=== PATIENT | male | born 1955 | race African-American/Black ===

== ENCOUNTER 2016-09-15 18:25 | Inpatient (IN) | payer MEDICARE, OTHER ==
[~2016-09-15] VITALS: Ht 167.6 cm; Wt 143.2 kg
[~2016-09-15 18:25] MED LIST: 1-ME1LIQ PO; ACET325S8 PO; ALUM5LIQ PO; AMIT50 PO; CEFU500 PO; CLOP75 PO; COZA100T PO; DOXA4 PO; DUONI NEB; FENO145 PO; FERR324T4 PO; FURO20 PO; GABA400 PO; GLIP10 PO; KCL20 PO; LEVO.075 PO; LEVO100T4 PO; METF-324 PO; METO50 PO; MEVA40TA PO; OMEP20TA39 PO; OXYC1SOL5 PO; PIOG30 PO; TEMA30CA PO
[2016-09-15 18:28] VITALS: BP 169/101; PULSE 73; RESP 24; TEMP 97.7; O2SAT 95
[2016-09-16] VITALS (12 sets, daily range): BP systolic 114–155; BP diastolic 58–84; PULSE 61–67; RESP 16–20; TEMP 95.6–97.6; O2SAT 94–99
[2016-09-16] MEDS ORDERED: METF500T PO (00:59)
[2016-09-16] MEDS ORDERED: LEVO50TA4 PO (00:59)
[2016-09-16] MEDS ORDERED: OXYC1TAB36 PO (00:59)
[2016-09-16] MEDS ORDERED: FURO40TA PO (00:59)
[2016-09-16] MEDS ORDERED: GABA400C5 PO (00:59)
[2016-09-16] MEDS ORDERED: METO50TA PO (00:59)
[2016-09-16] MEDS ORDERED: GLIP10TA6 PO (01:00)
[2016-09-16] MEDS ORDERED: LOSA100T PO (01:00)
[2016-09-16] MEDS ORDERED: OMEP20TA PO (01:00)
[2016-09-16] MEDS ORDERED: LISI-515 PO (01:00)
[2016-09-16] MEDS ORDERED: NAPR500T PO (01:00)
[2016-09-16] MEDS ORDERED: PANT40TA3 PO (01:00)
[2016-09-16] MEDS ORDERED: FERR325T PO (01:00)
[2016-09-16] MEDS ORDERED: AMIT50TA3 PO (01:00)
[2016-09-16] MEDS ORDERED: PIOG30TA4 PO (01:00)
[2016-09-16] MEDS ORDERED: LOVA40TA PO (01:00)
[2016-09-16] MEDS ORDERED: DOXA1TAB34 PO (01:00)
[2016-09-16] MEDS ORDERED: TEMA30CA PO (01:00)
[2016-09-16] MEDS ORDERED: AMLO10TA2 PO (01:00)
[2016-09-16] MEDS ORDERED: SODIUM CHLORIDE 0.9% FLUSH 5 ML FLUSH IVF PRN (01:15)
[2016-09-16 01:25] LABS: AUTOMATED NEUTROPHIL # 3.1 TH/MM3 (1.8-7.7); BASOPHIL % 0.7 % (0.0-2.0); EOSINOPHIL # 0.3 TH/MM3 (0-0.4); EOSINOPHIL % 4.4 % (0.0-4.0); HEMATOCRIT 39.8 % (39.0-51.0); HEMO FLAGS DIFF FINAL; LYMPH % 38.7 % (9.0-44.0); LYMPHOCYTE # 2.5 TH/MM3 (1.0-4.8); MEAN CELL VOLUME 90.3 FL (80.0-100.0); MEAN CORPUSCULAR HEMOGLOBIN 30.5 PG (27.0-34.0); MEAN CORPUSCULAR HGB CONC 33.8 % (32.0-36.0); MONO % 7.6 % (0.0-8.0); NEUT % 48.6 % (16.0-70.0); PLATELET COUNT 259 TH/MM3 (150-450); RED BLOOD COUNT 4.41 MIL/MM3 (4.50-5.90); RED CELL DISTRIBUTION WIDTH 14.5 % (11.6-17.2); WHITE BLOOD COUNT 6.3 TH/MM3 (4.0-11.0)
[2016-09-16 01:44] LABS: BICARBONATE 23.5 MEQ/L (21.0-32.0); POTASSIUM 4.9 MEQ/L (3.5-5.1)
--- NOTE | 2016-09-16 01:44 | RADRPT ---
EXAM DATE/TIME: 09/16/2016 01:26 [facility] COMPARISON: CT BRAIN W/O CONTRAST, March 11, 2016, 18:57. INDICATIONS : Right hand numbness since yesterday. RADIATION DOSE: 42.31 CTDIvol (mGy) MEDICAL HISTORY : Hypertension. Methicillin-resistant Staphylococcus aureus. thyroid disease. SURGICAL HISTORY : None. ENCOUNTER: Initial ACUITY: 2 days PAIN SCALE: 8/10 LOCATION: cranial TECHNIQUE: Multiple contiguous axial images were obtained of the head. Using automated exposure control and adj ustment of the mA and/or kV according to patient size, radiation dose was kept as low as reasonably a chievable to obtain optimal diagnostic quality images. FINDINGS: CEREBRUM: There is mild cerebral atrophy. Ventricles are stable in size. There is mild periventricular white ma tter low attenuation. No evidence of midline shift, mass lesion, hemorrhage or acute infarction. No extra-axial fluid collections are seen. POSTERIOR FOSSA: The cerebellum and brainstem demonstrate no acute finding. The 4th ventricle is midline. The cerebe llopontine angle is unremarkable. EXTRACRANIAL: Visualized sinuses are clear. SKULL: The calvaria is intact. No evidence of skull fracture. CONCLUSION: Stable noncontrast head CT with chronic changes, as above. No acute intracranial abnormality is ident ified. Efrain Potts MD on September 16, 2016 at 1:41 Board Certified Radiologist. This report was verified electronically.
--- NOTE | 2016-09-16 02:34 | PD ---
HPI Chief Complaint: Numbness/Tingling Time Seen by Provider: 00:41 Travel History International Travel<30 days: No Contact w/Intl Traveler<30days: No Traveled to known affect area: No History of Present Illness HPI 61-year-old male with a history of CHF, hyperlipidemia, hypertension, diabetes, right BKA, left great toe amputation and alcoholism arrives after he experienced about 12 hours of RUE weakness and numbness. He has a history of CVA from 8 months prior. Similar symptoms accompanied CVA from before. Symptoms first started more than 18 hours prior to ER arrival. He saw his primary care provider Dr. Mauricio Piedra as an outpatient and was advised to come to the ER. IN the ER he has no weakness or numbness. He has no other acute complaint. PFSH Past Medical History Arthritis: Yes Asthma: No Blood Disorders: No Anxiety: No Depression: No Heart Rhythm Problems: No Cancer: No Cardiovascular Problems: No High Cholesterol: Yes Chemotherapy: No Chest Pain: Yes Congestive Heart Failure: Yes COPD: No Cerebrovascular Accident: No Diabetes: Yes Patient Takes Glucophage: Yes (09/15/16) Diminished Hearing: No Endocrine: Yes Gastrointestinal Disorders: Yes (STOMACHE ULCER, GERD) GERD: Yes Glaucoma: No Genitourinary: No Headaches: No Hepatitis: No Hiatal Hernia: No Hypertension: Yes Kidney Stones: No Musculoskeletal: No Neurologic: No Psychiatric: No Reproductive: No Respiratory: No Migraines: No Myocardial Infarction: No Radiation Therapy: No Renal Failure: No Seizures: No Sickle Cell Disease: No Sleep Apnea: No Thyroid Disease: Yes Ulcer: Yes Past Surgical History Abdominal Surgery: Yes (CHOLECYSTECTOMY) AICD: No Appendectomy: No Arteriovenous Shunt: No Cardiac Surgery: No Cholecystectomy: Yes Ear Surgery: No Endocrine Surgery: No Eye Surgery: Yes (RIGHT EYE) Genitourinary Surgery: No Insulin Pump: No Joint Replacement: No Oral Surgery: No Pacemaker: No Thoracic Surgery: No Other Surgery: Yes (bilat foot diabetic ulcer debridement) Social History Alcohol Use: Yes (12 BEERS DAILY) Tobacco Use: No Substance Use: No Allergies-Medications (Allergen,Severity, Reaction): Coded Allergies: *MDRO Multi-Drug Resistant Organism (Verified Allergy, Unknown, 05/12/14) MRSA Acinetobacter 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 Aspirin (Verified Adverse Reaction, Severe, 05/12/14) not allergic; takes Coumadin/ states aspirin causes fever Reported Meds & Prescriptions Reported Meds & Active Scripts Active Reported Losartan (Losartan Potassium) 100 Mg Tab 100 Mg PO DAILY Omeprazole 20 Mg Tab 20 Mg PO DAILY Doxazosin (Doxazosin Mesylate) 4 Mg Tab 4 Mg PO DAILY Naproxen 500 Mg Tab 500 Mg PO BID Pioglitazone (Pioglitazone HCl) 30 Mg Tab 30 Mg PO DAILY Lovastatin 40 Mg Tab 40 Mg PO DAILY Amitriptyline (Amitriptyline HCl) 50 Mg Tab 50 Mg PO HS Amlodipine (Amlodipine Besylate) 10 Mg Tab 10 Mg PO DAILY Pantoprazole (Pantoprazole Sodium) 40 Mg Tab 40 Mg PO DAILY Lisinopril 20 Mg Tab 20 Mg PO DAILY Temazepam 30 Mg Cap 30 Mg PO HS PRN Glipizide 10 Mg Tab 10 Mg PO DAILY Take 30 minutes before a meal Ferrous Sulfate 325 Mg Tab 325 Mg PO DAILY Metformin (Metformin HCl) 500 Mg Tab 500 Mg PO BIDPC With meals Furosemide 40 Mg Tab 40 Mg PO DAILY Gabapentin 400 Mg Cap 400 Cap PO HS Oxycodone-Acetaminophen 10-325 mg Tab 1 Tab PO Q4HR Levothyroxine (Levothyroxine Sodium) 50 Mcg Tab 50 Mcg PO DAILY Metoprolol Tartrate 50 Mg Tab 50 Mg PO DAILY Review of Systems Except as stated in HPI: all other systems reviewed are Neg Physical Exam Narrative GENERAL: 61-year-old male pleasant SKIN: Warm and dry. HEAD: Atraumatic. Normocephalic. EYES: Pupils equal and round. No scleral icterus. No injection or drainage. ENT: No nasal bleeding or discharge. Mucous membranes pink and moist. Edentulous. NECK: Trachea midline. No JVD. CARDIOVASCULAR: Regular rate and rhythm. No murmur appreciated. RESPIRATORY: No accessory muscle use. Clear to auscultation. Breath sounds equal bilaterally. GASTROINTESTINAL: Abdomen soft, non-tender, nondistended. Hepatic and splenic margins not palpable. MUSCULOSKELETAL: No obvious deformities. No clubbing. No cyanosis. No edema. Right BKA with prosthesis intact. NEUROLOGICAL: Motor function at the upper extremities is equal bilaterally. Hand design assembler is equal bilaterally. Sensation is intact in the median radial and ulnar nerve distributions bilaterally. 2+ radial artery pulse bilaterally. Awake and alert. No obvious cranial nerve deficits. Motor grossly within normal limits. Normal speech. No focal cranial nerve deficit. PSYCHIATRIC: Appropriate mood and affect; insight and judgment normal. Data Data Last Documented VS Vital Signs Date Time Temp Pulse Resp B/P Pulse Ox O2 Delivery O2 Flow Rate FiO2 09/16/16 00:47 66 18 133/71 99 Room Air 09/15/16 18:28 97.7 Orders Complete Blood Count With Diff (09/16/16 01:12) Basic Metabolic Panel (Bmp) (09/16/16 01:12) Drug Screen, Random Urine (09/16/16 01:12) Ct Brain W/O Iv Contrast(Rout) (09/16/16 01:12) Ecg Monitoring (09/16/16 01:12) Iv Access Insert/Monitor (09/16/16 01:12) Oximetry (09/16/16 01:12) Blood Glucose (09/16/16 01:12) Sodium Chloride 0.9% Flush (Ns Flush) (09/16/16 01:15) Admit Order (Ed Use Only) (09/16/16 02:22) Labs Laboratory Tests Test 09/16/16 01:00 White Blood Count 6.3 TH/MM3 Red Blood Count 4.41 MIL/MM3 Hemoglobin 13.5 GM/DL Hematocrit 39.8 % Mean Corpuscular Volume 90.3 FL Mean Corpuscular Hemoglobin 30.5 PG Mean Corpuscular Hemoglobin 33.8 % Concent Red Cell Distribution Width 14.5 % Platelet Count 259 TH/MM3 Mean Platelet Volume 8.9 FL Neutrophils (%) (Auto) 48.6 % Lymphocytes (%) (Auto) 38.7 % Monocytes (%) (Auto) 7.6 % Eosinophils (%) (Auto) 4.4 % Basophils (%) (Auto) 0.7 % Neutrophils # (Auto) 3.1 TH/MM3 Lymphocytes # (Auto) 2.5 TH/MM3 Monocytes # (Auto) 0.5 TH/MM3 Eosinophils # (Auto) 0.3 TH/MM3 Basophils # (Auto) 0.0 TH/MM3 CBC Comment DIFF FINAL Differential Comment Sodium Level 135 MEQ/L Potassium Level 4.9 MEQ/L Chloride Level 104 MEQ/L Carbon Dioxide Level 23.5 MEQ/L Anion Gap 8 MEQ/L Blood Urea Nitrogen 35 MG/DL Creatinine 1.53 MG/DL Estimat Glomerular Filtration 56 ML/MIN Rate Random Glucose 107 MG/DL Calcium Level 8.4 MG/DL MDM Medical Decision Making Medical Screen Exam Complete: Yes Emergency Medical Condition: Yes Differential Diagnosis TIA stroke hypertensive encephalopathy Narrative Course CBC & BMP Diagram 09/16/16 01:00 Last [address] 09/16/16 0112 Signed Impressions: Service Date/Time: Friday, September 16, 2016 01:26 - CONCLUSION: Stable noncontrast head CT with chronic changes, as above. No acute intracranial abnormality is identified. Efrain Potts MD Case d/w Dr Piedra. We'll admit for further evaluation including MR. Diagnosis Primary Impression: TIA (transient ischemic attack) Qualified Code: G45.9 - Transient cerebral ischemia, unspecified type Admitting Information Admitting Physician Requests: Observation Merlin Pinto MD Sep 16, 2016 02:34
[2016-09-16] MEDS ORDERED: oxyCODONE/ACETAMINOPHEN 5 MG/325 MG TAB PO ONE (03:00)
[2016-09-16] MEDS ORDERED: DEXTROSE 50% IN WATER 50 ML VIAL(D50) IV PUSH PRN (09:00)
[2016-09-16] MEDS ORDERED: LOSARTAN 50 MG TAB PO SCH (09:00)
[2016-09-16] MEDS ORDERED: FUROSEMIDE 40 MG TAB PO SCH (09:00)
[2016-09-16] MEDS ORDERED: LISINOPRIL 20 MG TAB PO SCH (09:00)
[2016-09-16] MEDS ORDERED: GLUCAGON 1 MG/ML VIAL OTHER PRN (09:00)
[2016-09-16] MEDS ORDERED: DOXAZOSIN MESYLATE 4 MG TAB PO SCH (09:00)
--- NOTE | 2016-09-16 09:05 | RADRPT ---
EXAM DATE/TIME: 09/16/2016 08:25 [facility] COMPARISON: MRI BRAIN W/O CONTRAST, March 12, 2016, 10:54. INDICATIONS : Right sided numbness since Monday. MEDICAL HISTORY : Hypertension. Diabetes mellitus type 2. Hypercholesterolemia. hypothyroidism, CHF SURGICAL HISTORY : Cholecystectomy. Rt eye lid repair, Rt leg BKA, Lt 1st digit on foot removed, loop recorder ENCOUNTER: Subsequent ACUITY: 3 day PAIN SCORE: 0/10 LOCATION: cranial TECHNIQUE: Multiplanar, multisequence MRI of the brain was performed without contrast. FINDINGS: CEREBRUM: New 5 mm area of restricted diffusion and faint T2 weighted hyperintensity in the left thalamus indic ating acute lacunar infarct. No other evidence of acute infarct. Old bilateral thalamic lacunar infar cts also again seen. Ventricles, sulci, and cisterns are diffusely prominent indicating diffuse atrop hy. No evidence of midline shift, mass lesion, or hemorrhage. No extraaxial fluid collections are se en. The pituitary gland and suprasellar cistern are normal in configuration. WHITE MATTER: Periventricular white matter hyperintensities again seen likely representing chronic ischemic change. POSTERIOR FOSSA: The cerebellum and brainstem are intact. The 4th ventricle is midline. The cerebellopontine angle is unremarkable. The cerebellar tonsils are normal in position. DIFFUSION IMAGING: No focal areas of restricted diffusion are seen. No evidence of acute infarction. EXTRACRANIAL: The visualized portions of the orbits and paranasal sinuses are unremarkable. CONCLUSION: 1. Acute left thalamic lacunar infarct. Multiple old lacunar infarcts. 2. Diffuse atrophy and chronic white matter ischemic change. Dillan Meyer MD on September 16, 2016 at 8:58 Board Certified Radiologist. This report was verified electronically.
[2016-09-16] MEDS ORDERED: SODIUM CHLORIDE 0.9% FLUSH 5 ML FLUSH FLUSH PRN ×2 (10:15)
[2016-09-16] MEDS ORDERED: NALOXONE HCL 0.4 MG/ML AMP IV PRN ×2 (10:15)
[2016-09-16] MEDS ORDERED: ONDANSETRON HCL 4 MG/2 ML VIAL IVP PRN (10:15)
[2016-09-16] MEDS: FERROUS SULFATE 325 MG (65 MG ELEMENTAL IRON) TAB PO SCH (11:19)
[2016-09-16] MEDS: PANTOPRAZOLE SOD 20 MG DELAYED RELEASE TAB PO SCH (11:19)
[2016-09-16] MEDS: METOPROLOL TARTRATE 50 MG TAB PO SCH (11:19)
[2016-09-16] MEDS: LEVOTHYROXINE SODIUM 50 MCG TAB PO SCH (11:20)
[2016-09-16] MEDS: glipiZIDE 10 MG TAB PO SCH (11:20)
[2016-09-16] MEDS: metFORMIN HCL 500 MG TAB PO SCH ×2 (11:21→18:20)
[2016-09-16] MEDS: PRAVASTATIN SOD 40 MG TAB PO SCH (11:21)
[2016-09-16] MEDS: PIOGLITAZONE HCL 30 MG TAB PO SCH (11:21)
[2016-09-16] MEDS ORDERED: oxyCODONE/ACETAMINOPHEN 10 MG/325 MG TAB PO SCH (12:00)
[2016-09-16] MEDS: DOCUSATE SODIUM 100 MG CAP PO SCH ×2 (12:04→22:59)
[2016-09-16] MEDS: oxyCODONE/ACETAMINOPHEN 5 MG/325 MG TAB PO PRN ×2 (12:04→23:00)
[2016-09-16] MEDS: INSULIN ASPART SUPPLEMENTAL SCALE SQ SCH ×3 (12:05→20:39)
[2016-09-16] MEDS: HEPARIN SODIUM - SQ 10,000 UNITS/ML VIAL SQ SCH ×2 (12:05→23:01)
[2016-09-16] MEDS: SODIUM CHLOR 0.9% 1000 ML INJ 1,000 ML IV SCH (12:06)
--- NOTE | 2016-09-16 19:20 | HHI.HP ---
History of Present Illness Service INTERNAL MEDICINE Primary Care Physician SARKIS PIEDRA MD Admission Diagnosis RIGHT UPPER EXTREMITY WEAKNESS AND NUMBNESS Diagnoses: History of Present Illness This patient is a 61 year old male who has had many admissions to [facility]. He was seen in the office and was noted with lethargy and some mild lack of coherency. This occurred in an off and on fashion. He also showed some decreased reliability for his motions of the right upper extremity movements. There was also a history of increased numbness of the same limb and also somewhat for the right lower limb. He further expressed inability to lift his right upper extremity for a short period of time earlier on that day. He has not had any recent illness, infection or trauma. He was sent to the [facility] Emergency Room for evaluation of the adverse changes. He is found with suspicion for cerebral vascular accident and admitted to the hospital in this regard. Review of Systems Constitutional: COMPLAINS OF: Fatigue, Dizziness Cardiovascular: COMPLAINS OF: Dyspnea on Exertion Musculoskeletal: COMPLAINS OF: Stiffness Neurologic: COMPLAINS OF: Abnormal gait, Poor Balance Psychiatric: COMPLAINS OF: Confusion Past Family Social History Allergies: Coded Allergies: *MDRO Multi-Drug Resistant Organism (Verified Allergy, Unknown, 05/12/14) MRSA Acinetobacter 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 Aspirin (Verified Adverse Reaction, Severe, 05/12/14) not allergic; takes Coumadin/ states aspirin causes fever Past Medical History 1. Hypertension. 2. Hyperlipidemia. 3. Diabetes Mellitus, Type 2. 4. Diabetic Retinopathy. 5. Diabetic Neuropathy. 6. Peripheral Arterial Disease. 7. Osteoarthritis. 8. Chronic Low Back Syndrome. 9. Hypothyroidism. 10. Chronic Diastolic Congestive Heart Failure. 11. Gastroesophageal Reflux Disease. 12. Osteoarthritis. 13. Gout. 14. Chronic Anemia secondary to chronic illness. 15. Chronic Peptic Ulcer Disease. 16. Obesity. 13. Osteomyelitis of Left Great Toe. Past Surgical History 1. Cholecystectomy---2008. 2. Abscess Drainage of the Right Foot---2008. 3. Amputation of the Left Great Toe---2011. 4. Amputation of Toes of the Right Foot---2013. 5. Right Below Knee Amputation---2013. 6. Cardiac Loop Recorder placement---2015. Family History There is a personal family history of Diabetes Mellitus, Type 2, Heart Disease and Hypertension in several family members. Social History He is and lives at home with his . He is not a smoker. He drinks alcohol somewhat excessively at times, most recently averaging about 12 beers daily. There is no history of any recreational drug use. Physical Exam Vital Signs Vital Signs Date Time Temp Pulse Resp B/P Pulse Ox O2 Delivery O2 Flow Rate FiO2 09/16/16 16:26 95.6 61 20 141/75 98 09/16/16 13:31 96.9 67 20 155/84 98 09/16/16 12:16 65 16 129/76 97 Room Air 09/16/16 09:57 65 16 135/78 97 Room Air 09/16/16 08:01 95 21 09/16/16 07:23 64 16 114/80 97 Room Air 09/16/16 06:00 66 16 152/78 94 Room Air 09/16/16 04:00 62 18 117/70 95 Room Air 09/16/16 02:56 99 09/16/16 02:00 64 18 122/66 95 Room Air 09/16/16 00:47 66 18 133/71 99 Room Air Physical Exam GENERAL: This is a well-nourished, well-developed patient, in no apparent distress. SKIN: No rashes, ecchymoses or lesions. Cool and dry. HEAD: Atraumatic. Normocephalic. No temporal or scalp tenderness. EYES: Pupils equal round and reactive. Extraocular motions intact. No scleral icterus. No injection or drainage. ENT: Nose is without drainage. Throat without erythema, tonsillar hypertrophy or exudate. Uvula midline. Airway patent. NECK: Trachea midline. No JVD, thyromegaly, carotid bruits or lymphadenopathy. Supple, nontender, no meningeal signs. CARDIOVASCULAR: Regular rate and rhythm without murmurs, gallops, or rubs. RESPIRATORY: Clear to auscultation. Breath sounds equal bilaterally. No wheezes , rales, or rhonchi. GASTROINTESTINAL: Abdomen is obese and soft. It is non-tender and nondistended. There is no hepato-splenomegaly, or palpable masses. No guarding or rebound. MUSCULOSKELETAL: Extremities without clubbing or cyanosis. There is mild edema of the distal left lower limb. No calf tenderness for the left lower limb. There is a right below knee amputation with prothesis in use. NEUROLOGICAL: Awake and alert. Cranial nerves II through XII intact. There are no lateralizing motor deficits to exam. Also, the sensory is grossly within normal limits. Five out of 5 muscle strength in all muscle groups. Normal speech. Laboratory Laboratory Tests Test 09/16/16 01:00 White Blood Count 6.3 Red Blood Count 4.41 Hemoglobin 13.5 Hematocrit 39.8 Mean Corpuscular Volume 90.3 Mean Corpuscular Hemoglobin 30.5 Mean Corpuscular Hemoglobin 33.8 Concent Red Cell Distribution Width 14.5 Platelet Count 259 Mean Platelet Volume 8.9 Neutrophils (%) (Auto) 48.6 Lymphocytes (%) (Auto) 38.7 Monocytes (%) (Auto) 7.6 Eosinophils (%) (Auto) 4.4 Basophils (%) (Auto) 0.7 Neutrophils # (Auto) 3.1 Lymphocytes # (Auto) 2.5 Monocytes # (Auto) 0.5 Eosinophils # (Auto) 0.3 Basophils # (Auto) 0.0 CBC Comment DIFF FINAL Differential Comment Sodium Level 135 Potassium Level 4.9 Chloride Level 104 Carbon Dioxide Level 23.5 Anion Gap 8 Blood Urea Nitrogen 35 Creatinine 1.53 Estimat Glomerular Filtration 56 Rate Random Glucose 107 Calcium Level 8.4 Result Diagram: 09/16/169909/16/1699 Assessment and Plan Assessment and Plan ASSESSMENT 1. Acute Left Thalamic Cerebral Vascular Accident. 2. Hypertension. 3. Diabetes Mellitus, Type 2. 4. Coronary Artery Disease. 5. Hyperlipidemia. 6. Peripheral Arterial Disease. 7. Peripheral Neuropathy. PLAN 1. Admit to the hospital as an Inpatient. 2. Bedrest with the head of bed flat. 3. Consultation to Neurology. 4. Blood pressure and blood sugar control. 5. Magnesium repletion. 6. Follow up laboratory assessment. 7. DVT, PE and PUD prophylaxis. Sarkis Piedra MD Sep 16, 2016 19:20
[2016-09-16] MEDS: GABAPENTIN 400 MG CAP PO SCH (20:38)
[2016-09-16] MEDS: SODIUM CHLORIDE 0.9% FLUSH 5 ML FLUSH FLUSH SCH (20:39)
[2016-09-16] MEDS ORDERED: SODIUM CHLORIDE 0.9% FLUSH 5 ML FLUSH FLUSH SCH (21:00)
--- NOTE | 2016-09-16 21:09 | MB ---
cc: JONATHAN OZUNA MD DATE OF CONSULTATION: 09/16/2016 REASON FOR CONSULTATION: Right-sided upper and lower extremity numbness and tingling HISTORY OF PRESENT ILLNESS Mr. Herrera is a 61-year-old -[place] male who has past medical history of diabetes, right below-knee amputation, hypertension, hyperlipidemia, congestive heart failure, left great toe amputation, alcoholism. He reported to the emergency room after about more than 12 hours of right upper extremity numbness and tingling sensation. Denies numbness of the face associated with mild slurred speech. He has a history of stroke eight months earlier. Symptoms started almost a day prior to the ER arrival. He had seen his primary care physician prior to that who has advised him to come to the emergency room at [facility]. As per the PCP notes there was some lack of coherency as well in his assessment. The patient is not on any antiplatelet therapy. He denies any symptoms of stroke or TIA in the past. REVIEW OF SYSTEMS A 12-point review of systems is intact except for what is stated in the HPI. PAST MEDICAL HISTORY 1. Hyperlipidemia. 2. Hypertension. 3. Congestive heart failure. 4. Diabetes. 5. GERD. 6. Hypertension. 7. Thyroid disorder. PAST SURGICAL HISTORY: 1. Cholecystectomy. 2. Below-knee amputation. 3. Diabetic ulcer debridement. 4. Cholecystectomy. SOCIAL HISTORY: Alcohol abuse, 12 beers daily. Denies tobacco and recreational drug abuse. ALLERGIES: ASPIRIN, causes fever. MEDICATIONS: He used to be on Plavix in the past. PHYSICAL EXAMINATION: General: Pleasant, good historian not in acute distress. HEENT: Intact hearing. Intact vision, atraumatic, normocephalic. Neck: Trachea in the midline. No carotid bruit. Cardiovascular: Regular rate and rhythm. No murmurs. Respiratory: Clear to auscultation. No wheezes. Musculoskeletal: Right below-knee amputation with prosthesis. No clubbing, no cyanosis. Neurological: Awake, alert, oriented to time, person and place. Intact memory. Intact speech. Intact repetition. Intact naming. Pupils are bilaterally equal 2 mm reacting to light briskly, no nystagmus. No diplopia. Normal facial sensation. No facial asymmetry. Intact gag reflex. Normal elevation of the uvula, normal sternomastoid and trapezius muscle. Motor 5/5 bilateral and symmetrical. No abnormal movements. Sensation is intact bilateral and symmetrical throughout except for the right lower extremity because of right BKA. Cerebellar function, [id number] bilateral symmetrical, left lower extremity [id number] is in normal. LABORATORY DATA White blood cells 6.3, hemoglobin 13.5, MCV 90, platelet count 259. Sodium 135, potassium 4.9, carbon dioxide 3.5, anion gap 8, BUN 35, creatinine 1.53, calcium 8.3. Diagnostic Imaging: - Head CT scan was reported as stable, noncontrasted head CT with chronic changes. No acute intracranial abnormality identified. - Brain MRI revealed acute left thalamic lacunar infarct, multiple old lacunar infarct, diffuse atrophy and chronic white matter ischemic changes were noted. DIAGNOSTIC IMPRESSION - Acute ischemic lacunar infarct in the left MCA territory Likely etiology is uncontrolled diabetes and hypertension. - Hypertension. - Diabetes. PLAN 1. Neuro checks q. 4 hourly. 2. Plavix 75 mg daily as the patient is ALLERGIC TO ASPIRIN. 3. Telemetry. 4. Cardiac echo 5. Carotid ultrasound. 6. PT/OT recommendations are appreciated. 7. DVT prophylaxis, SCDs. 8. CIWA protocol Thank you for the opportunity to participate in the care of your patient. MD MALCOM Snyder/DEBORA /8:20 PM /8:42 PM JAMES
[2016-09-17] VITALS (8 sets, daily range): BP systolic 112–189; BP diastolic 6–104; PULSE 60–72; RESP 18–20; TEMP 95.7–98.8; O2SAT 96–99
--- NOTE | 2016-09-17 01:03 | RADRPT ---
EXAM DATE/TIME: 09/16/2016 21:56 [facility] COMPARISON: MRA CAROTIDS W CONTRAST, March 12, 2016, 19:55. INDICATIONS : Stroke. MEDICAL HISTORY : Congestive heart failure. Hypercholesterolemia. Hypertension. Ulcer. Thyroid disease. GERD. SURGICAL HISTORY : Cholecystectomy. ENCOUNTER: Initial ACUITY: 1 day PAIN SCORE: 0/10 LOCATION: Bilateral neck PEAK SYSTOLIC VELOCITIES (cm/sec): ICA/CCA RATIO: Right: 1.1 Left: 0.8 ICA: Right: 76 Left: 60 CCA: Right: 71 Left: 72 ECA: Right: 50 Left: 79 VERTEBRAL: Right: 51 antegrade Left: 53 antegrade Elevated flow velocities and ICA/CCA ratios have been found to correlate with increased degrees of vessel stenosis, calculated as percentage of diameter relative to a normal segment of distal ICA/CCA FINDINGS: RIGHT CAROTID: No significant stenosis is visualized. There is mild noncalcified plaque in the carotid bulb. The wa veforms are within normal limits. LEFT CAROTID: No significant stenosis is visualized. There is mild calcified and noncalcified plaque in the caroti d bulb. The waveforms are within normal limits. VERTEBRAL ARTERIES: Antegrade flow is seen in both vertebral arteries. MISCELLANEOUS: None. CONCLUSION: 1. Very mild atherosclerotic disease in the carotid bulbs bilaterally. However, no significant stenos is is present within either internal carotid artery (less than 50% stenosis). 2. There is antegrade flow within both vertebral arteries. Efrain Potts MD on September 17, 2016 at 1:00 Board Certified Radiologist. This report was verified electronically.
[2016-09-17] MEDS: LEVOTHYROXINE SODIUM 50 MCG TAB PO SCH (06:16)
[2016-09-17] MEDS: INSULIN ASPART SUPPLEMENTAL SCALE SQ SCH ×4 (06:18→21:00)
[2016-09-17 07:46] LABS: AUTOMATED NEUTROPHIL # 2.2 TH/MM3 (1.8-7.7); BASOPHIL % 0.9 % (0.0-2.0); EOSINOPHIL # 0.2 TH/MM3 (0-0.4); EOSINOPHIL % 4.6 % (0.0-4.0); HEMATOCRIT 39.5 % (39.0-51.0); HEMO FLAGS DIFF FINAL; LYMPH % 39.5 % (9.0-44.0); MEAN CELL VOLUME 91.2 FL (80.0-100.0); MEAN CORPUSCULAR HEMOGLOBIN 29.6 PG (27.0-34.0); MEAN CORPUSCULAR HGB CONC 32.5 % (32.0-36.0); MONO % 10.9 % (0.0-8.0); NEUT % 44.1 % (16.0-70.0); PLATELET COUNT 238 TH/MM3 (150-450); RED BLOOD COUNT 4.33 MIL/MM3 (4.50-5.90); RED CELL DISTRIBUTION WIDTH 14.7 % (11.6-17.2); WHITE BLOOD COUNT 5.1 TH/MM3 (4.0-11.0)
[2016-09-17 08:38] LABS: ANION GAP 8 MEQ/L (5-15); BICARBONATE 25.9 MEQ/L (21.0-32.0); BLOOD UREA NITROGEN 21 MG/DL (7-18); CHLORIDE 103 MEQ/L (98-107); GLOMERULAR FILTRATION RATE 78 ML/MIN (>89); HDL CHOLESTEROL 30.5 MG/DL (40.0-60.0); LDL CHOLESTEROL 66 MG/DL (0-99); MAGNESIUM 1.3 MG/DL (1.5-2.5); POTASSIUM 4.6 MEQ/L (3.5-5.1); SODIUM (NA) 137 MEQ/L (136-145); THYROXINE (T4) 9.1 MCG/DL (4.5-12.1)
[2016-09-17] MEDS: oxyCODONE/ACETAMINOPHEN 5 MG/325 MG TAB PO PRN ×3 (09:17→23:25)
[2016-09-17] MEDS: PANTOPRAZOLE SOD 20 MG DELAYED RELEASE TAB PO SCH (09:17)
[2016-09-17] MEDS: PIOGLITAZONE HCL 30 MG TAB PO SCH (09:18)
[2016-09-17] MEDS: CLOPIDOGREL 75 MG TAB PO SCH (09:18)
[2016-09-17] MEDS: FERROUS SULFATE 325 MG (65 MG ELEMENTAL IRON) TAB PO SCH (09:18)
[2016-09-17] MEDS: glipiZIDE 10 MG TAB PO SCH (09:18)
[2016-09-17] MEDS: METOPROLOL TARTRATE 50 MG TAB PO SCH (09:18)
[2016-09-17] MEDS: PRAVASTATIN SOD 40 MG TAB PO SCH (09:18)
[2016-09-17] MEDS: metFORMIN HCL 500 MG TAB PO SCH ×2 (09:18→17:12)
[2016-09-17] MEDS: SODIUM CHLORIDE 0.9% FLUSH 5 ML FLUSH FLUSH SCH ×2 (09:19→21:20)
[2016-09-17] MEDS: SODIUM CHLOR 0.9% 1000 ML INJ 1,000 ML IV SCH ×2 (09:19→21:25)
[2016-09-17] MEDS ORDERED: INFLUENZA VIRUS VACCINE (QUADRIVALENT) 0.5 ML SYR IM ONE (10:00)
[2016-09-17] MEDS: DOCUSATE SODIUM 100 MG CAP PO SCH ×2 (11:00→21:20)
[2016-09-17] MEDS: LEVOTHYROXINE SODIUM 75 MCG TAB PO SCH (11:07)
[2016-09-17] MEDS: HEPARIN SODIUM - SQ 10,000 UNITS/ML VIAL SQ SCH ×2 (11:08→21:19)
[2016-09-17] MEDS: MAGNESIUM SULFATE 1 GM PREMIX 100 ML IV SCH ×2 (11:09→13:18)
--- NOTE | 2016-09-17 11:39 | HHI.PR ---
Subjective Remarks He is sitting up on the side of the bed this morning. He denies any chest pain , shortness of breath, numbness or tingling. He appears to be tolerating the medication regimen well. His status was reviewed with him today and he expressed understanding of his current problems. Objective Vital Signs Date Time Temp Pulse Resp B/P Pulse Ox O2 Delivery O2 Flow Rate FiO2 09/17/16 10:34 18 09/17/16 09:54 95.7 72 20 189/104 99 09/17/16 05:00 98.8 68 18 112/64 98 09/17/16 00:50 97.0 67 18 115/60 99 09/16/16 22:00 97.6 64 18 116/58 99 09/16/16 16:26 95.6 61 20 141/75 98 09/16/16 13:31 96.9 67 20 155/84 98 09/16/16 12:16 65 16 129/76 97 Room Air I/O 09/16/16 09/16/16 09/16/16 09/17/16 09/17/16 09/17/16 07:00 15:00 23:00 07:00 15:00 23:00 Intake Total 700 ml 900 ml Output Total 900 ml Balance -200 ml 900 ml Intake Oral 700 ml 900 ml Output Urine Total 900 ml # Voids 2 # Bowel Movements 0 2 Result Diagram: 09/17/1662309/17/1624 Objective Remarks GENERAL: He is alert and well oriented to time, person and place. SKIN: Warm and dry. HEAD: Normocephalic. Atraumatic. EYES: PERRLA. EOMI. No scleral icterus. No injection or drainage. NECK: Supple, trachea midline. No JVD, thyromegaly, carotid bruits or lymphadenopathy. CARDIOVASCULAR: Regular rate and rhythm without murmurs, gallops, or rubs. RESPIRATORY: Breath sounds equal bilaterally. No accessory muscle use. GASTROINTESTINAL: Abdomen is obese, soft, non-tender and nondistended. MUSCULOSKELETAL: There is a below knee amputation for the right lower extremity. No cyanosis, or edema. BACK: Nontender without obvious deformity. No CVA tenderness. No sacral edema. NEUROLOGICAL: No presence of any lateralizing focal motor deficits to gross examination today. Assessment and Plan Assessment and Plan ASSESSMENT 1. Acute Left Thalamic Cerebral Vascular Accident. 2. Hypertension. 3. Diabetes Mellitus, Type 2. 4. Coronary Artery Disease. 5. Hypothyroidism. 6. Peripheral Arterial Disease. 7. Peripheral Neuropathy. 8. Chronic Anemia secondary to chronic illness. 9. Obesity. PLAN 1. Continue with the current medication regimen. 2. Advance activity as per Neurology. 3. Neurology follows. 4. Follow up laboratory assessment. 5. DVT, PE and PUD prophylaxis. Sarkis Piedra MD Sep 17, 2016 11:39
[2016-09-17] MEDS: TEMAZEPAM 15 MG CAP PO PRN (21:18)
[2016-09-17] MEDS: GABAPENTIN 400 MG CAP PO SCH (21:19)
--- NOTE | 2016-09-17 21:30 | HHI.PR ---
Review/Management Diagnosis - Acute ischemic lacunar infarct in the left MCA territory Likely etiology is uncontrolled diabetes and hypertension. - Hypertension. - Diabetes. - Head CT scan was reported as stable, noncontrasted head CT with chronic changes. No acute intracranial abnormality identified. - Brain MRI revealed acute left thalamic lacunar infarct, multiple old lacunar infarct, diffuse atrophy and chronic white matter ischemic changes were noted. - CUS revealed <50% stenosis, vertebral arteries are antegrade Plan - Neuro checks q. 4 hourly. - Plavix 75 mg daily as the patient is ALLERGIC TO ASPIRIN. - Telemetry. - PT/OT recommendations are appreciated. - Stable from neurology standpoint - Follow up with neurology outpatient is two weeks - DVT prophylaxis, SCDs. - CIIL protocol Diagnosis/Plan: Subjective Subjective Comments No acute events reported Patient denies any new complaints CUS revealed <50% stenosis, antegrade vertebral arteries Active Medications Current Medications Medications (Trade) Dose Ordered Sig/Kuldip Route Start Time Stop Time Status Last Admin (Norvasc) 10 mg DAILY PO 09/16/16 09:00 Hold (Cardura) 4 mg DAILY PO 09/16/16 09:00 Hold (Ferrous Sulfate) 325 mg DAILY PO 09/16/16 09:00 09/17/16 09:18 (Lasix) 40 mg DAILY PO 09/16/16 09:00 Hold (Neurontin) 400 mg HS PO 09/16/16 21:00 09/17/16 21:19 (Glucotrol) 10 mg DAILYAC PO 09/16/16 08:52 09/17/16 09:18 (Prinivil) 20 mg DAILY PO 09/16/16 09:00 Hold (Cozaar) 100 mg DAILY PO 09/16/16 09:00 Hold (Pravachol) 40 mg DAILY PO 09/16/16 09:00 09/17/16 09:18 (Glucophage) 500 mg BIDPC PO 09/16/16 09:00 09/17/16 17:12 (Lopressor) 50 mg DAILY PO 09/16/16 09:00 09/17/16 09:18 (Protonix) 20 mg DAILY PO 09/16/16 09:00 09/17/16 09:17 (Actos) 30 mg DAILYAC PO 09/16/16 08:54 09/17/16 09:18 (Restoril) 30 mg HS PRN PO 09/16/16 08:45 09/17/16 21:18 (D50w (Vial) Inj) 25 ml UNSCH PRN IV PUSH 09/16/16 09:00 Glucagon 1 mg 1 mg UNSCH PRN OTHER 09/16/16 09:00 (NS 1000 ml Inj) 1,000 ml @ 85 mls/hr [id number] IV 09/16/16 11:00 09/17/16 21:25 (NS Flush) 2 ml UNSCH PRN FLUSH 09/16/16 10:15 (NS Flush) 2 ml BID FLUSH 09/16/16 21:00 09/17/16 21:20 (Zofran Inj) 4 mg Q6H PRN IVP 09/16/16 10:15 (Colace) 100 mg Q12H PO 09/16/16 11:00 09/16/16 22:59 (Heparin Inj) 5,000 units Q12H SQ 09/16/16 11:00 09/17/16 21:19 (Narcan Inj) 0.4 mg UNSCH PRN IV 09/16/16 10:15 (Percocet 5-325 Mg) 1 tab Q6H PRN PO 09/16/16 10:15 09/17/16 17:12 (Plavix) 75 mg DAILY PO 09/17/16 09:00 09/17/16 09:18 (Synthroid) 75 mcg DAILY@06 PO 09/17/16 10:45 09/17/16 11:07 Allergies Allergies Coded Allergies *MDRO Multi-Drug Resistant Organism (Verified Allergy, Unknown, 05/12/14) Aspirin (Verified Adverse Reaction, Severe, 05/12/14) Exam I&O / VS 09/16/16 09/16/16 09/17/16 15:00 23:00 07:00 Intake Total 700 ml 900 ml Output Total 900 ml Balance -200 ml 900 ml Intake Oral 700 ml 900 ml Output Urine Total 900 ml # Voids 2 # Bowel Movements 0 2 Vital Signs Date Time Temp Pulse Resp B/P Pulse Ox O2 Delivery O2 Flow Rate FiO2 09/17/16 18:00 18 09/17/16 16:10 163/83 09/17/16 15:41 97.5 60 20 183/104 96 09/17/16 13:14 67 09/17/16 12:21 96.9 66 20 131/6 99 09/17/16 09:54 95.7 72 20 189/104 99 09/17/16 05:00 98.8 68 18 112/64 98 09/17/16 00:50 97.0 67 18 115/60 99 09/16/16 22:00 97.6 64 18 116/58 99 Respiratory: Lungs CTA, BS equal, Symmetrical expansion Cardiology: Normal rate, Regular Rhythm Musculoskeletal: ROM Exam Comments Awake, alert, oriented to time, person and place. Intact memory. Intact speech. Pupils are b/l equal 2 mm reacting to light briskly, no nystagmus. No diplopia. Normal facial sensation. No facial asymmetry. Intact gag reflex. Normal elevation of the uvula, normal sternomastoid and trapezius muscle. Motor 5/5 bilateral and symmetrical. No abnormal movements. Sensation is intact bilateral and symmetrical throughout except for the right lower extremity because of right BKA. Cerebellar function, [id number] bilateral symmetrical, left lower extremity [id number] is in normal. Objective Radiology Results Last 72 hours Impressions Brain MRI 09/16/16 0246 Signed Impressions: Service Date/Time: Friday, September 16, 2016 08:25 - CONCLUSION: 1. Acute left thalamic lacunar infarct. Multiple old lacunar infarcts. 2. Diffuse atrophy and chronic white matter ischemic change. Dillan Meyer MD Head CT 09/16/16 0112 Signed Impressions: Service Date/Time: Friday, September 16, 2016 01:26 - CONCLUSION: Stable noncontrast head CT with chronic changes, as above. No acute intracranial abnormality is identified. Efrain Potts MD Carotid Artery Ultrasound 09/16/16 0000 Signed Impressions: Service Date/Time: Friday, September 16, 2016 21:56 - CONCLUSION: 1. Very mild atherosclerotic disease in the carotid bulbs bilaterally. However, no significant stenosis is present within either internal carotid artery (less than 50%% stenosis). 2. There is antegrade flow within both vertebral arteries. Efrain Potts MD Micro and Labs Laboratory Tests Test 09/17/16 06:24 White Blood Count 5.1 Red Blood Count 4.33 Hemoglobin 12.8 Hematocrit 39.5 Mean Corpuscular Volume 91.2 Mean Corpuscular Hemoglobin 29.6 Mean Corpuscular Hemoglobin 32.5 Concent Red Cell Distribution Width 14.7 Platelet Count 238 Mean Platelet Volume 9.1 Neutrophils (%) (Auto) 44.1 Lymphocytes (%) (Auto) 39.5 Monocytes (%) (Auto) 10.9 Eosinophils (%) (Auto) 4.6 Basophils (%) (Auto) 0.9 Neutrophils # (Auto) 2.2 Lymphocytes # (Auto) 2.0 Monocytes # (Auto) 0.6 Eosinophils # (Auto) 0.2 Basophils # (Auto) 0.0 CBC Comment DIFF FINAL Differential Comment Sodium Level 137 Potassium Level 4.6 Chloride Level 103 Carbon Dioxide Level 25.9 Anion Gap 8 Blood Urea Nitrogen 21 Creatinine 1.15 Estimat Glomerular Filtration 78 Rate Random Glucose 88 Calcium Level 8.8 Magnesium Level 1.3 Triglycerides Level 145 Cholesterol Level 125 LDL Cholesterol 66 HDL Cholesterol 30.5 Cholesterol/HDL Ratio 4.09 Thyroxine (T4) 9.1 Thyroid Stimulating Hormone 4.060 3rd Gen Pio Epperson MD Sep 17, 2016 21:30 Pio Epperson MD Sep 17, 2016 21:30
[2016-09-18] VITALS (8 sets, daily range): BP systolic 136–183; BP diastolic 64–115; PULSE 62–76; RESP 20; TEMP 95.3–97.1; O2SAT 94–98
[2016-09-18] MEDS: LEVOTHYROXINE SODIUM 75 MCG TAB PO SCH (06:02)
[2016-09-18] MEDS: INSULIN ASPART SUPPLEMENTAL SCALE SQ SCH ×4 (06:08→21:00)
[2016-09-18] MEDS: oxyCODONE/ACETAMINOPHEN 5 MG/325 MG TAB PO PRN ×3 (07:18→18:39)
[2016-09-18] MEDS: FERROUS SULFATE 325 MG (65 MG ELEMENTAL IRON) TAB PO SCH (08:22)
[2016-09-18] MEDS: CLOPIDOGREL 75 MG TAB PO SCH (08:23)
[2016-09-18] MEDS: HEPARIN SODIUM - SQ 10,000 UNITS/ML VIAL SQ SCH ×2 (08:23→22:17)
[2016-09-18] MEDS: glipiZIDE 10 MG TAB PO SCH (08:23)
[2016-09-18] MEDS: METOPROLOL TARTRATE 50 MG TAB PO SCH (08:23)
[2016-09-18] MEDS: PIOGLITAZONE HCL 30 MG TAB PO SCH (08:23)
[2016-09-18] MEDS: DOCUSATE SODIUM 100 MG CAP PO SCH (08:23)
[2016-09-18] MEDS: SODIUM CHLOR 0.9% 1000 ML INJ 1,000 ML IV SCH (08:23)
[2016-09-18] MEDS: PRAVASTATIN SOD 40 MG TAB PO SCH (08:23)
[2016-09-18] MEDS: metFORMIN HCL 500 MG TAB PO SCH ×2 (08:23→18:38)
[2016-09-18] MEDS: PANTOPRAZOLE SOD 20 MG DELAYED RELEASE TAB PO SCH (08:23)
[2016-09-18] MEDS: SODIUM CHLORIDE 0.9% FLUSH 5 ML FLUSH FLUSH SCH ×2 (08:24→22:11)
[2016-09-18 09:57] LABS: HEMOGLOBIN A1a 1.3 %; HEMOGLOBIN Ao 82.8 %; HEMOGLOBIN LA1C 1.9 %; HEMOGLOBIN P3 3.8 %
--- NOTE | 2016-09-18 18:45 | HHI.PR ---
Subjective Remarks He is again sitting up on the side of the bed at this time and eating a snack. He denies any chest pain, shortness of breath, numbness or tingling. He appears to be tolerating all of the medication regimen well. Blood pressure had be somewhat elevated and he has been returned to his anti-hypertensive medications. His status was reviewed with him again today and he expressed understanding of his current problems. Objective Vital Signs Date Time Temp Pulse Resp B/P Pulse Ox O2 Delivery O2 Flow Rate FiO2 09/18/16 17:49 136/64 09/18/16 15:52 96.0 63 20 178/115 94 09/18/16 13:47 18 09/18/16 12:50 96.4 67 20 146/104 96 09/18/16 11:37 64 09/18/16 08:03 95.6 76 20 150/108 96 09/18/16 04:44 95.3 72 20 166/95 97 09/18/16 00:35 95.7 62 20 174/102 98 09/17/16 20:00 96.9 63 20 180/100 96 I/O 09/17/16 09/17/16 09/17/16 09/18/16 09/18/16 09/18/16 07:00 15:00 23:00 07:00 15:00 23:00 Intake Total 900 ml 960 ml 960 ml Output Total 825 ml Balance 900 ml 135 ml 960 ml Intake Oral 900 ml 960 ml 960 ml Output Urine Total 825 ml # Voids 2 1 # Bowel Movements 2 Result Diagram: 09/17/16 0624 09/17/16 0624 Objective Remarks GENERAL: He is alert and well oriented to time, person and place. SKIN: Warm and dry. HEAD: Normocephalic. Atraumatic. EYES: PERRLA. EOMI. No scleral icterus. No injection or drainage. NECK: Supple, trachea midline. No JVD, thyromegaly, carotid bruits or lymphadenopathy. CARDIOVASCULAR: Regular rate and rhythm without murmurs, gallops, or rubs. RESPIRATORY: Breath sounds equal bilaterally. No accessory muscle use. GASTROINTESTINAL: Abdomen is obese, soft, non-tender and nondistended. MUSCULOSKELETAL: There is a below knee amputation for the right lower extremity. BACK: Nontender without obvious deformity. No CVA tenderness. No sacral edema. NEUROLOGICAL: No presence of any lateralizing focal motor deficits to gross examination today. Assessment and Plan Assessment and Plan ASSESSMENT 1. Acute Left Thalamic Cerebral Vascular Accident. 2. Hypertension- was elevated earlier. 3. Diabetes Mellitus, Type 2. 4. Coronary Artery Disease. 5. Hypothyroidism. 6. Peripheral Arterial Disease. 7. Peripheral Neuropathy. 8. Chronic Anemia secondary to chronic illness. 9. Obesity. PLAN 1. Continue with the current medication regimen. 2. Advance activity with Physical Therapy and Occupational Therapy. 3. Neurology disposition was appreciated. 4. Follow up laboratory assessment. 5. Discharge Planning for Rehab. Sarkis Piedra MD Sep 18, 2016 18:45
[2016-09-18] MEDS ORDERED: ENALAPRILAT 2.5 MG/2 ML VIAL IV PUSH PRN (19:00)
[2016-09-18] MEDS: GABAPENTIN 400 MG CAP PO SCH (22:08)
[2016-09-18] MEDS: TEMAZEPAM 15 MG CAP PO PRN (22:08)
[2016-09-18] MEDS ORDERED: DOCUSATE SODIUM 100 MG CAP PO PRN (23:00)
[2016-09-18] MEDS ORDERED: cloNIDine HCL 0.2 MG TAB PO ONE (23:30)
[2016-09-19] MEDS: oxyCODONE/ACETAMINOPHEN 5 MG/325 MG TAB PO PRN ×3 (00:14→16:36)
[2016-09-19 00:21] VITALS: BP 187/96; PULSE 65; RESP 20; TEMP 96; O2SAT 97
[2016-09-19 05:04] VITALS: BP 141/90; PULSE 65; RESP 20; TEMP 95.6; O2SAT 94
[2016-09-19] MEDS: LEVOTHYROXINE SODIUM 75 MCG TAB PO SCH (06:27)
[2016-09-19] MEDS: INSULIN ASPART SUPPLEMENTAL SCALE SQ SCH ×2 (06:32→11:00)
[2016-09-19 08:00] VITALS: BP 125/92; PULSE 64; RESP 17; TEMP 96.1; O2SAT 97
[2016-09-19 08:02] LABS: HEMATOCRIT 39.6 % (39.0-51.0); MEAN CELL VOLUME 89.8 FL (80.0-100.0); MEAN CORPUSCULAR HEMOGLOBIN 30.4 PG (27.0-34.0); MEAN CORPUSCULAR HGB CONC 33.8 % (32.0-36.0); PLATELET COUNT 233 TH/MM3 (150-450); RED BLOOD COUNT 4.41 MIL/MM3 (4.50-5.90); RED CELL DISTRIBUTION WIDTH 14.3 % (11.6-17.2); REVIEW FLAG FINAL
[2016-09-19 08:31] LABS: MAGNESIUM 1.2 MG/DL (1.5-2.5); POTASSIUM 4.4 MEQ/L (3.5-5.1)
[2016-09-19] MEDS: FERROUS SULFATE 325 MG (65 MG ELEMENTAL IRON) TAB PO SCH (10:11)
[2016-09-19] MEDS: CLOPIDOGREL 75 MG TAB PO SCH (10:12)
[2016-09-19] MEDS: METOPROLOL TARTRATE 50 MG TAB PO SCH (10:12)
[2016-09-19] MEDS: PRAVASTATIN SOD 40 MG TAB PO SCH (10:12)
[2016-09-19] MEDS: PANTOPRAZOLE SOD 20 MG DELAYED RELEASE TAB PO SCH (10:12)
[2016-09-19] MEDS: HEPARIN SODIUM - SQ 10,000 UNITS/ML VIAL SQ SCH (10:13)
[2016-09-19] MEDS: metFORMIN HCL 500 MG TAB PO SCH (10:13)
[2016-09-19] MEDS: PIOGLITAZONE HCL 30 MG TAB PO SCH (10:13)
[2016-09-19] MEDS: glipiZIDE 10 MG TAB PO SCH (10:13)
[2016-09-19 12:00] VITALS: BP 168/95; PULSE 65; RESP 18; TEMP 95.6; O2SAT 93
[2016-09-19] MEDS ORDERED: PLAV75TA29 PO (13:34)
[2016-09-19] MEDS ORDERED: OXYC1TAB63 PO (13:35)
--- NOTE | 2016-09-19 13:44 | HHI.PR ---
Subjective Remarks He denies any adverse symptoms today. He continues to tolerate all of the medication regimen well. Blood pressure is more stable back on his usual meds. His status was reviewed with him again today and he expressed understanding of his current problems. Objective Vital Signs Date Time Temp Pulse Resp B/P Pulse Ox O2 Delivery O2 Flow Rate FiO2 09/19/16 12:00 95.6 65 18 168/95 93 09/19/16 08:00 96.1 64 17 125/92 97 09/19/16 05:04 95.6 65 20 141/90 94 09/19/16 00:21 96.0 65 20 187/96 97 09/18/16 20:35 97.1 66 20 183/98 97 09/18/16 17:49 136/64 09/18/16 15:52 96.0 63 20 178/115 94 09/18/16 13:47 18 I/O 09/18/16 09/18/16 09/18/16 09/19/16 09/19/16 09/19/16 07:00 15:00 23:00 07:00 15:00 23:00 Intake Total 960 ml Output Total 400 ml Balance 560 ml Intake Oral 960 ml Output Urine Total 400 ml # Voids 1 3 0 # Bowel Movements 1 Result Diagram: 09/19/16 0706 09/19/16 0706 Objective Remarks GENERAL: He is alert and well oriented to time, person and place. SKIN: Warm and dry. HEAD: Normocephalic. Atraumatic. EYES: PERRLA. EOMI. No scleral icterus. No injection or drainage. NECK: Supple, trachea midline. No JVD, thyromegaly, carotid bruits or lymphadenopathy. CARDIOVASCULAR: Regular rate and rhythm without murmurs, gallops, or rubs. RESPIRATORY: Breath sounds equal bilaterally. No accessory muscle use. GASTROINTESTINAL: Abdomen is obese, soft, non-tender and nondistended. MUSCULOSKELETAL: There is a below knee amputation for the right lower extremity. BACK: Nontender without obvious deformity. No CVA tenderness. No sacral edema. NEUROLOGICAL: No presence of any lateralizing focal motor deficits to gross examination today. Assessment and Plan Assessment and Plan ASSESSMENT 1. Acute Left Thalamic Cerebral Vascular Accident. 2. Hypertension- was elevated earlier. 3. Diabetes Mellitus, Type 2. 4. Coronary Artery Disease. 5. Hypothyroidism. 6. Peripheral Arterial Disease. 7. Peripheral Neuropathy. 8. Chronic Anemia secondary to chronic illness. 9. Obesity. MEDICALLY STABLE FOR DISCHARGE. PLAN 1. Continue with the current medication regimen. 2. Advance activity with Physical Therapy and Occupational Therapy. 3. Neurology disposition was appreciated. 4. Follow up laboratory assessment. 5. Discharge Planning for Rehab. OKAY TO GO TO REHAB TODAY. Sarkis Piedra MD Sep 19, 2016 13:44
[2016-09-19 16:00] VITALS: BP 154/91; PULSE 60; RESP 18; TEMP 97.5; O2SAT 95
--- NOTE | 2017-01-18 08:24 | MD ---
cc: RAYSHAWN PIEDRA M.D. ADMISSION DATE: 09/16/2016 DISCHARGE DATE: 09/19/2016 ADMISSION DIAGNOSIS Right upper extremity weakness and numbness. DISCHARGE DIAGNOSIS 1. Acute left thalamic cerebrovascular accident. 2. Uncontrolled hypertension 3. Diabetes mellitus type 2 4. Coronary artery disease 5. Hypothyroidism 6. Peripheral arterial disease 7. Peripheral neuropathy 8. Chronic anemia secondary to chronic illness 9. Obesity BRIEF HISTORY The patient is a 61-year-old male who has been with a presentation of a great deal of lethargy and also lack of coherency. The patient has off and on depression and has also had some difficulty for probably lifting his right upper extremity, as well as some problem for the right lower limb. The patient was acting very erratic and it was recommended that the patient present to the [facility] emergency department for evaluation. He was evaluated and found with a presentation of changes that were highly suspicious for a cerebrovascular accident. He was admitted to the hospital in this regard. The patient had denial of any recent major illness, infection or any recent major trauma prior to admission. He also had not had any recent travel. He has a longstanding history of diabetes mellitus, hypertension, hyperlipidemia and vascular disease. PERTINENT PHYSICAL FINDINGS He was alert, well-nourished and periodically had some confusion. HEENT: The head was atraumatic and normocephalic. Pupils equal and reactive. The oropharynx showed a clear status. Tongue protruded with slight deviation to the left. Gag reflex was intact. NECK: Good range of motion and supple in character. No carotid bruits, thyromegaly or jugular venous distension. HEART: Regular rhythm with S1 and S2 distinct. LUNGS: Appeared clear bilaterally to auscultation. ABDOMEN: Soft with obese character. The bowel sounds were normal. No masses were palpated. EXTREMITIES: Good range of motion with presentation of pulses at 2+/4+ and the patient has 1+ peripheral edema for the left lower extremity and also some swelling of the right lower extremity which is with a below-knee amputation status. NEUROLOGIC: Limited exam was done per the patient's ability to fully cooperate. The patient had no evidence of lateralizing motor deficits. HOSPITAL COURSE He was admitted to the hospital and blood pressure control was established. The patient placed on bed rest with head of bed being flat. Blood glucose monitoring was done with coverage by short-acting insulin on a sliding scale basis subcutaneously. Magnesium was found to be low and the patient had magnesium repletion done. Follow up laboratory investigations done on his behalf. The patient also had consultation to neurology. Follow up imaging studies were done whereby the patient had MRI study of the brain. The MRI revealed that the patient had a presentation for acute left thalamic lacunar infarct. He also has the presentation of multiple old lacunar infarcts. Ultrasound of the carotid vessels was done and the study showed no hemodynamically significant carotid stenoses. As the patient was continued to be hospitalized, he had stabilization of his blood pressure and activity was increased by evaluation per physical therapy. He showed no further adverse symptoms for the remainder of his hospitalization stay. By 09/18/2016, the patient was more controlled with the antihypertensive medications and physical and occupational therapy continued in his behalf. On 09/19/2016, discussion had been done with the patient and family and plans were made that the patient would go to a rehab center. Case management had been consulted and the patient had arrangements made for him to be discharged on 09/19/2016 to go to a rehab center. DISCHARGE DISPOSITION Diet. The patient will be on a heart healthy diet with 1800 calories ADA status. MEDICATIONS 1. Amitriptyline 50 mg q.h.s. 2. Amlodipine 10 mg daily 3. Plavix 75 mg daily 4. Doxazosin 4 mg daily 5. Ferrous sulfate 325 mg daily 6. Furosemide 40 mg daily 7. Gabapentin 400 mg q.h.s. 8. Levothyroxine 50 mg daily 9. Lisinopril 20 mg daily 10. Losartan 100 mg daily 11. Lovastatin 40 mg daily 12. Metformin 500 mg b.i.d. 13. Metoprolol tartrate 50 mg daily 14. Naproxen 500 mg b.i.d. with food 15. Omeprazole 20 mg daily 16. Oxycodone/acetaminophen 5/325 one q6h p.r.n. 17. p.o. prednisone 30 mg daily 18. Temazepam 30 mg q.h.s. p.r.n. ACTIVITY The patient will have physical activity per occupational and physical therapy at the rehab center. FOLLOWUP He be discharged to a rehab center for continued rehabilitation. He is recommended to follow up with Dr. Piedra one week after discharge from the rehab center. MD KYUNG Lee/EUGENE /1:24 PM /8:12 AM
== END 2016-09-19 17:15 | DRG 65 ==
LOC: NEPC 18:25 → NEDA 09-16 02:24 → NEDH 09-16 07:39 → OBSVTOIN 09-16 10:15 → N05A 09-16 13:00
PROVIDERS: ADMIT Internal Medicine; ATTEND Internal Medicine
DX: I63.512 Cerebral infarction due to unspecified occlusion or stenosis of left middle cerebral artery (principal); I50.32 Chronic diastolic (congestive) heart failure; E11.40 Type 2 diabetes mellitus with diabetic neuropathy, unspecified; E11.319 Type 2 diabetes mellitus with unspecified diabetic retinopathy without macular edema; E11.65 Type 2 diabetes mellitus with hyperglycemia; I10 Essential (primary) hypertension; E78.00 Pure hypercholesterolemia, unspecified; E78.5 Hyperlipidemia, unspecified; F10.20 Alcohol dependence, uncomplicated; M19.90 Unspecified osteoarthritis, unspecified site; I73.9 Peripheral vascular disease, unspecified; E03.9 Hypothyroidism, unspecified; M54.5 Low back pain; K21.9 Gastro-esophageal reflux disease without esophagitis; M10.9 Gout, unspecified; E66.9 Obesity, unspecified; D63.8 Anemia in other chronic diseases classified elsewhere; I25.10 Atherosclerotic heart disease of native coronary artery without angina pectoris; Z79.02 Long term (current) use of antithrombotics/antiplatelets; Z88.6 Allergy status to analgesic agent; Z83.3 Family history of diabetes mellitus; Z86.73 Personal history of transient ischemic attack (TIA), and cerebral infarction without residual deficits; Z87.11 Personal history of peptic ulcer disease; Z89.412 Acquired absence of left great toe; Z89.511 Acquired absence of right leg below knee; Z79.84 Long term (current) use of oral hypoglycemic drugs; Z23 Encounter for immunization
CPT/HCPCS: 70450; 70551; 76937; 80048; 80061; 82948; 83036; 83735; 84436; 84443; 85025; 85027; 90471; 90686; 93306; 93880; G0008; J1644; J1815; J3475; J7030; Q2038

== ENCOUNTER 2017-03-16 10:36 | Inpatient (IN) | payer MEDICARE, OTHER ==
[~2017-03-16] VITALS: Ht 165.1 cm; Wt 143.5 kg
[~2017-03-16 10:36] MED LIST changes: -1-ME1LIQ PO; -ACET325S8 PO; -ALUM5LIQ PO; -AMIT50 PO; +AMIT50TA3 PO; +AMLO10TA2 PO; -CEFU500 PO; -CLOP75 PO; -COZA100T PO; +DOXA1TAB34 PO; -DOXA4 PO; -DUONI NEB; -FENO145 PO; -FERR324T4 PO; +FERR325T PO; -FURO20 PO; +FURO40TA PO; -GABA400 PO; +GABA400C5 PO; -GLIP10 PO; +GLIP10TA6 PO; -KCL20 PO; -LEVO.075 PO; -LEVO100T4 PO; +LEVO50TA4 PO; +LISI-515 PO; +LOSA100T PO; +LOVA40TA PO; -METF-324 PO; +METF500T PO; -METO50 PO; +METO50TA PO; -MEVA40TA PO; +OMEP20TA PO; -OMEP20TA39 PO; -OXYC1SOL5 PO; +OXYC1TAB36 PO; +OXYC1TAB63 PO; -PIOG30 PO; +PIOG30TA4 PO; +PLAV75TA29 PO
[2017-03-16 10:45] VITALS: BP 123/71; PULSE 77; RESP 22; O2SAT 94
[2017-03-16] MEDS ORDERED: PROT40TA PO (10:56)
[2017-03-16] MEDS ORDERED: MORPHINE SULFATE 8 MG/ML INJ IV PUSH ONE (11:15)
--- NOTE | 2017-03-16 11:54 | RADRPT ---
EXAM DATE/TIME: 03/16/2017 11:33 [facility] COMPARISON: No previous studies available for comparison. INDICATIONS : Left distal humerus pain and swelling after falling this morning. MEDICAL HISTORY : None. SURGICAL HISTORY : None. ENCOUNTER: Initial ACUITY: 1 day PAIN SCORE: 10/10 LOCATION: Left distal humerus. FINDINGS: There is an obliquely oriented angulated fracture distal humeral shaft. Lateral view is underpenetrat ed and fractures not clearly visualized. CONCLUSION: 1. Distal humeral fracture with angular deformity. Dion Shannon MD on March 16, 2017 at 11:52 Board Certified Radiologist. This report was verified electronically.
--- NOTE | 2017-03-16 12:04 | RADRPT ---
EXAM DATE/TIME: 03/16/2017 11:37 [facility] COMPARISON: No previous studies available for comparison. INDICATIONS : Left elbow pain and swelling after falling this morining. MEDICAL HISTORY : Congestive heart failure. Hypercholesterolemia. Hypertension. Ulcer. Thyroid disease. GERD. SURGICAL HISTORY : Cholecystectomy. ENCOUNTER: Initial ACUITY: 1 day PAIN SCORE: 10/10 LOCATION: Left elbow. FINDINGS: 2 oblique views of the left elbow demonstrate an oblique displaced and angulated fracture of the dist al humeral metadiaphysis. There is lateral apical angulation. No soft tissue abnormality is visualize d. CONCLUSION: There is an oblique displaced and angulated fracture of the distal humeral metadiaphysis. Efrain Potts MD on March 16, 2017 at 12:01 Board Certified Radiologist. This report was verified electronically.
[2017-03-16] MEDS ORDERED: MORPHINE SULFATE 4 MG/ML INJ IV PUSH ONE (12:15)
--- NOTE | 2017-03-16 12:20 | PD ---
HPI Chief Complaint: Fall Time Seen by Provider: 11:04 Travel History International Travel<30 days: No Contact w/Intl Traveler<30days: No Traveled to known affect area: No History of Present Illness HPI 61-year-old male came to the emergency room brought by EMS after losing his balance since he is an amputee of the right leg, BKA and was not wearing his prosthesis. Tried to get out of the bed and stumbled and landed on his left arm. He had intermediate excruciating pain and his family called 911. Patient has significant deformity of the upper extremity. He had not received any pain medication on route. Patient says prior to the accident he was feeling absolutely fine. He says his pain is mostly closer to the elbow and the distal part of his humerus. His forearm, wrist and fingers feel okay. PFSH Past Medical History Narrative Medical List of his past medical, surgical, social and family history was reviewed from the nursing note. Arthritis: Yes Asthma: No Autoimmune Disease: No Blood Disorders: No Anxiety: No Depression: No Heart Rhythm Problems: No Cancer: No Cardiovascular Problems: No High Cholesterol: Yes Chemotherapy: No Chest Pain: Yes Congestive Heart Failure: Yes COPD: No Cerebrovascular Accident: No Diabetes: Yes Patient Takes Glucophage: Yes Diminished Hearing: No Endocrine: Yes Gastrointestinal Disorders: Yes (STOMACHE ULCER, GERD) GERD: Yes Glaucoma: No Genitourinary: No Headaches: No Hepatitis: No Hiatal Hernia: No Hypertension: Yes Immune Disorder: No Kidney Stones: No Musculoskeletal: No Neurologic: No Psychiatric: No Reproductive: No Respiratory: No Migraines: No Myocardial Infarction: No Radiation Therapy: No Renal Failure: No Seizures: No Sickle Cell Disease: No Sleep Apnea: No Thyroid Disease: Yes Ulcer: Yes Past Surgical History Abdominal Surgery: Yes (CHOLECYSTECTOMY) AICD: No Appendectomy: No Arteriovenous Shunt: No Cardiac Surgery: No Cholecystectomy: Yes Ear Surgery: No Endocrine Surgery: No Eye Surgery: Yes (RIGHT EYE) Genitourinary Surgery: No Insulin Pump: No Joint Replacement: No Oral Surgery: No Pacemaker: Yes Thoracic Surgery: No Other Surgery: Yes (bilat foot diabetic ulcer debridement) Social History Alcohol Use: Yes (12 BEERS DAILY) Tobacco Use: No Substance Use: No (etoh) Allergies-Medications (Allergen,Severity, Reaction): Coded Allergies: *MDRO Multi-Drug Resistant Organism (Verified Allergy, Unknown, 8/4/17) MRSA PCR screen positive 03/17/17 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 Reported Meds & Prescriptions Reported Meds & Active Scripts Active Plavix (Clopidogrel Bisulfate) 75 Mg Tab 75 Mg PO DAILY Reported Protonix (Pantoprazole Sodium) 40 Mg Tab 40 Mg PO DAILY Losartan (Losartan Potassium) 100 Mg Tab 100 Mg PO DAILY Omeprazole 20 Mg Tab 20 Mg PO DAILY Doxazosin (Doxazosin Mesylate) 4 Mg Tab 4 Mg PO DAILY Pioglitazone (Pioglitazone HCl) 30 Mg Tab 30 Mg PO DAILY Lovastatin 40 Mg Tab 40 Mg PO DAILY Amitriptyline (Amitriptyline HCl) 50 Mg Tab 50 Mg PO HS Amlodipine (Amlodipine Besylate) 10 Mg Tab 10 Mg PO DAILY Lisinopril 20 Mg Tab 20 Mg PO BID Temazepam 30 Mg Cap 30 Mg PO HS PRN Glipizide 10 Mg Tab 10 Mg PO DAILY Take 30 minutes before a meal Metformin (Metformin HCl) 500 Mg Tab 500 Mg PO BIDPC With meals Furosemide 40 Mg Tab 50 Mg PO DAILY Gabapentin 400 Mg Cap 100 Cap PO QID Oxycodone-Acetaminophen 10-325 mg Tab 1 Tab PO Q4HR Levothyroxine (Levothyroxine Sodium) 50 Mcg Tab 50 Mcg PO DAILY Metoprolol Tartrate 50 Mg Tab 50 Mg PO DAILY Narrative Medication List of his home medications reviewed from the nursing note. Review of Systems Except as stated in HPI: all other systems reviewed are Neg Physical Exam Narrative GENERAL: Awake, alert, morbidly obese, moderate distress SKIN: Focused skin assessment warm/dry. HEAD: Atraumatic. Normocephalic. EYES: Pupils equal and round. No scleral icterus. No injection or drainage. ENT: No nasal bleeding or discharge. Mucous membranes pink and moist. NECK: Trachea midline. No JVD. CARDIOVASCULAR: Regular rate and rhythm. No murmur appreciated. RESPIRATORY: No accessory muscle use. Clear to auscultation. Breath sounds equal bilaterally. GASTROINTESTINAL: Abdomen soft, non-tender, nondistended. Hepatic and splenic margins not palpable. MUSCULOSKELETAL: Shortening and deformity of the left arm with significant tenderness over the elbow and distal humerus. Decreased range of motion at the elbow joint due to the pain. No clubbing. No cyanosis. No edema. Distal pulses and sensations intact NEUROLOGICAL: Awake and alert. No obvious cranial nerve deficits. Motor grossly within normal limits. Normal speech. PSYCHIATRIC: Appropriate mood and affect; insight and judgment normal. Data Data Last Documented VS Vital Signs Date Time Temp Pulse Resp B/P Pulse Ox O2 Delivery O2 Flow Rate FiO2 03/16/17 10:45 77 22 123/71 94 Orders Humerus (Min 2vws) (03/16/17 ) Morphine Inj (Morphine Inj) (03/16/17 11:15) Elbow, Limited (Ap&Lat) (03/16/17 ) Morphine Inj (Morphine Inj) (03/16/17 12:15) Complete Blood Count With Diff (03/16/17 12:12) Basic Metabolic Panel (Bmp) (03/16/17 12:12) Prothrombin Time / Inr (Pt) (03/16/17 12:12) Type And Screen (03/16/17 12:12) Chest, Single Ap (03/16/17 ) Admit Order (Ed Use Only) (03/16/17 12:20) Labs Laboratory Tests Test 03/16/17 12:00 White Blood Count 9.1 TH/MM3 Red Blood Count 3.83 MIL/MM3 Hemoglobin 11.7 GM/DL Hematocrit 35.2 % Mean Corpuscular Volume 91.9 FL Mean Corpuscular Hemoglobin 30.6 PG Mean Corpuscular Hemoglobin 33.3 % Concent Red Cell Distribution Width 14.2 % Platelet Count 207 TH/MM3 Mean Platelet Volume 8.9 FL Neutrophils (%) (Auto) 80.8 % Lymphocytes (%) (Auto) 12.8 % Monocytes (%) (Auto) 4.9 % Eosinophils (%) (Auto) 1.3 % Basophils (%) (Auto) 0.2 % Neutrophils # (Auto) 7.3 TH/MM3 Lymphocytes # (Auto) 1.2 TH/MM3 Monocytes # (Auto) 0.4 TH/MM3 Eosinophils # (Auto) 0.1 TH/MM3 Basophils # (Auto) 0.0 TH/MM3 CBC Comment DIFF FINAL Differential Comment Prothrombin Time 10.6 SEC Prothromb Time International 1.0 RATIO Ratio Sodium Level 139 MEQ/L Potassium Level 5.0 MEQ/L Chloride Level 108 MEQ/L Carbon Dioxide Level 21.1 MEQ/L Anion Gap 10 MEQ/L Blood Urea Nitrogen 13 MG/DL Creatinine 1.14 MG/DL Estimat Glomerular Filtration 79 ML/MIN Rate Random Glucose 44 MG/DL Calcium Level 8.7 MG/DL Blood Type O POSITIVE Antibody Screen NEGATIVE MDM Medical Decision Making Medical Screen Exam Complete: Yes Emergency Medical Condition: Yes Medical Record Reviewed: Yes Differential Diagnosis Elbow dislocation, elbow fracture, distal humerus fracture Narrative Course 12:15 PM x-ray shows a comminuted distal humerus fracture. Patient was given pain medication after I saw him and I have ordered another dose. The fracture fragments are significantly displaced and in my opinion would require surgery. Awaiting for the orthopedist to call back. I put a call out for his primary care for admission. Waiting for them to call back. Preop blood test has been ordered. Procedures EKG Prior to Arrival: No Physician Communication Physician Communication Dr. Carmen Diagnosis Primary Impression: Fall Qualified Code: W19.XXXA - Fall, initial encounter Additional Impression: Humeral distal fracture Qualified Code: S42.492A - Other closed displaced fracture of distal end of left humerus, initial encounter Admitting Information Admitting Physician Requests: Admit Scripts Oxycodone-Acetaminophen (Percocet)5-325 mg Tab1 Tab PO Q4H PRN (PAIN) #60 TAB Ref 0 Prov:Amaury Carmen Jr., MD 03/17/17 Marvel Beavers MD Mar 16, 2017 12:19
[2017-03-16 12:37] LABS: AUTOMATED NEUTROPHIL # 7.3 TH/MM3 (1.8-7.7); BASOPHIL % 0.2 % (0.0-2.0); EOSINOPHIL # 0.1 TH/MM3 (0-0.4); EOSINOPHIL % 1.3 % (0.0-4.0); HEMATOCRIT 35.2 % (39.0-51.0); HEMO FLAGS DIFF FINAL; LYMPH % 12.8 % (9.0-44.0); LYMPHOCYTE # 1.2 TH/MM3 (1.0-4.8); MEAN CELL VOLUME 91.9 FL (80.0-100.0); MEAN CORPUSCULAR HEMOGLOBIN 30.6 PG (27.0-34.0); MEAN CORPUSCULAR HGB CONC 33.3 % (32.0-36.0); MONO % 4.9 % (0.0-8.0); NEUT % 80.8 % (16.0-70.0); PLATELET COUNT 207 TH/MM3 (150-450); RED BLOOD COUNT 3.83 MIL/MM3 (4.50-5.90); RED CELL DISTRIBUTION WIDTH 14.2 % (11.6-17.2); WHITE BLOOD COUNT 9.1 TH/MM3 (4.0-11.0)
[2017-03-16] MEDS ORDERED: LACTULOSE SYRUP 20 GM/30 ML CUP PO PRN (12:45)
[2017-03-16] MEDS ORDERED: TEMAZEPAM 15 MG CAP PO PRN ×2 (12:45→16:45)
[2017-03-16] MEDS ORDERED: MAGNESIUM HYDROXIDE SUSP 30 ML CUP PO PRN (12:45)
[2017-03-16] MEDS ORDERED: SENNOSIDES 8.6 MG TAB PO PRN (12:45)
[2017-03-16] MEDS ORDERED: ONDANSETRON HCL 4 MG/2 ML VIAL IVP PRN (12:45)
[2017-03-16] MEDS ORDERED: NALOXONE HCL 0.4 MG/ML AMP IV PRN (12:45)
[2017-03-16] MEDS ORDERED: SODIUM CHLORIDE 0.9% FLUSH 10 ML FLUSH IV FLUSH PRN (12:45)
[2017-03-16] MEDS ORDERED: BISACODYL 10 MG SUPP RECTAL PRN (12:45)
[2017-03-16 12:49] LABS: PROTHROMBIN TIME - PATIENT 10.6 SEC (9.8-11.6)
[2017-03-16 12:58] LABS: BICARBONATE 21.1 MEQ/L (21.0-32.0)
[2017-03-16] MEDS ORDERED: DEXTROSE 50% IN WATER 50 ML SYRINGE ONE (13:08)
--- NOTE | 2017-03-16 13:26 | RADRPT ---
EXAM DATE/TIME: 03/16/2017 12:29 [facility] COMPARISON: CHEST SINGLE AP, March 11, 2016, 19:05. INDICATIONS : Cough. MEDICAL HISTORY : Congestive heart failure. Hypercholesterolemia. Hypertension. Ulcer. SURGICAL HISTORY : Cholecystectomy. ENCOUNTER: Initial ACUITY: 1 day PAIN SCORE: 0/10 LOCATION: Bilateral chest FINDINGS: AP view of the chest demonstrates a normal-sized cardiac silhouette. Lungs are mildly underinflated. No effusion, consolidation, or pneumothorax is identified. There is a linear opacity at the left lung base. Bones and soft tissues demonstrate no acute finding. CONCLUSION: Linear opacity at the left lung base representing either atelectasis or scar. Otherwise, no acute fin ding is identified. Efrain Potts MD on March 16, 2017 at 13:24 Board Certified Radiologist. This report was verified electronically.
[2017-03-16 13:55] VITALS: BP 139/72; PULSE 77; RESP 19; O2SAT 96
[2017-03-16] MEDS ORDERED: HEPARIN SODIUM - SQ 10,000 UNITS/ML VIAL SQ SCH (14:00)
[2017-03-16 15:15] VITALS: BP 120/87; PULSE 62; RESP 19; TEMP 95.9; O2SAT 98
[2017-03-16] MEDS ORDERED: INFLUENZA VIRUS VACCINE (QUADRIVALENT) 0.5 ML SYR IM ONE (16:30)
[2017-03-16] MEDS ORDERED: GLUCAGON 1 MG/ML VIAL OTHER PRN (17:15)
[2017-03-16] MEDS ORDERED: DEXTROSE 50% IN WATER 50 ML VIAL(D50) IV PRN (17:15)
[2017-03-16] MEDS ORDERED: PILL SPLITTER OTHER PRN (17:15)
[2017-03-16] MEDS: HYDROmorphone HCL PF 2 MG/ML VIAL IV PUSH PRN (17:32)
[2017-03-16] MEDS ORDERED: metFORMIN HCL 500 MG TAB PO SCH (18:00)
--- NOTE | 2017-03-16 18:04 | HHI.HP ---
History of Present Illness Service INTERNAL MEDICINE Primary Care Physician SARKIS PIEDRA M.D. Admission Diagnosis FRACTURE OF HUMERUS WITH ANGULAR DEFORMITY Diagnoses: History of Present Illness This patient is a 61 year old male who reports falling and hitting hard on the left shoulder area. He stayed on the floor until an individual came to his house to attend to work on his daughter's car. He heard the individual and yelled out to him when he knocked on the door. He was found lying on the floor and emergency services was called. He was transported to the [facility] emergency room for evaluation. He is found with a fracture of the left humerus and in intractable pain. He is admitted to the hospital to further assess his status and treat. There is denial of any syncope, vertigo, severe headache or palpitations. No recent major illness or infection. Review of Systems He denies any major adverse changes prior to the current event. 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 Hypertension. 2. Hyperlipidemia. 3. Diabetes Mellitus, Type 2. 4. Diabetic Retinopathy. 5. Diabetic Neuropathy. 6. Peripheral Arterial Disease. 7. Osteoarthritis. 8. Chronic Low Back Syndrome. 9. Hypothyroidism. 10. Chronic Diastolic Congestive Heart Failure. 11. Gastroesophageal Reflux Disease. 12. Osteoarthritis. 13. Left Thalamic Cerebral Vascular Accident. 13. Gout. 14. Chronic Anemia secondary to chronic illness. 15. Chronic Peptic Ulcer Disease. 16. Obesity. 13. Osteomyelitis of Left Great Toe. Past Surgical History 1. Cholecystectomy---2008. 2. Abscess Drainage of the Right Foot---2008. 3. Amputation of the Left Great Toe---2011. 4. Amputation of Toes of the Right Foot---2013. 5. Right Below Knee Amputation---2013. 6. Cardiac Loop Recorder placement---2015. Family History There is a personal family history of Diabetes Mellitus, Type 2, Heart Disease and Hypertension in several family members. Social History He is and lives at home with his . He is a nonsmoker. He drinks alcohol excessively at times. He still averages about 12 beers daily. There is no history of any recreational drug use. Physical Exam Vital Signs Vital Signs Date Time Temp Pulse Resp B/P Pulse Ox O2 Delivery O2 Flow Rate FiO2 03/16/17 15:15 95.9 62 19 120/87 98 03/16/17 13:55 77 19 139/72 96 Room Air 03/16/17 10:45 77 22 123/71 94 Physical Exam GENERAL: This is a well-nourished, well-developed patient, in no apparent distress. SKIN: No rashes, ecchymoses or lesions. Cool and dry. HEAD: Atraumatic. Normocephalic. No temporal or scalp tenderness. EYES: Pupils equal round and reactive. Extraocular motions intact. No scleral icterus. No injection or drainage. ENT: Nose without bleeding, purulent drainage or septal hematoma. Throat without erythema, tonsillar hypertrophy or exudate. Uvula midline. Airway patent. NECK: Trachea midline. No JVD or lymphadenopathy. Supple, nontender, no meningeal signs. CARDIOVASCULAR: Regular rate and rhythm without murmurs, gallops, or rubs. RESPIRATORY: Clear to auscultation. Breath sounds equal bilaterally. No wheezes , rales, or rhonchi. GASTROINTESTINAL: Abdomen soft, non-tender, nondistended. No hepato-splenomegaly , or palpable masses. No guarding. MUSCULOSKELETAL: The left upper limb is in an immobilization swatch. Peripheral pulses are at 2+/4+ to exam. The other extremities without clubbing or cyanosis. There is 2+ edema for the lower limbs He has a right below knee amputation. No joint tenderness or effusion is noted to exam. No left calf tenderness. Negative Homans sign. NEUROLOGICAL: Awake and alert. Cranial nerves II through XII intact. Motor and sensory grossly within normal limits. Five out of 5 muscle strength in all muscle groups. Normal speech. Laboratory Laboratory Tests Test 03/16/17 12:00 White Blood Count 9.1 Red Blood Count 3.83 Hemoglobin 11.7 Hematocrit 35.2 Mean Corpuscular Volume 91.9 Mean Corpuscular Hemoglobin 30.6 Mean Corpuscular Hemoglobin 33.3 Concent Red Cell Distribution Width 14.2 Platelet Count 207 Mean Platelet Volume 8.9 Neutrophils (%) (Auto) 80.8 Lymphocytes (%) (Auto) 12.8 Monocytes (%) (Auto) 4.9 Eosinophils (%) (Auto) 1.3 Basophils (%) (Auto) 0.2 Neutrophils # (Auto) 7.3 Lymphocytes # (Auto) 1.2 Monocytes # (Auto) 0.4 Eosinophils # (Auto) 0.1 Basophils # (Auto) 0.0 CBC Comment DIFF FINAL Differential Comment Prothrombin Time 10.6 Prothromb Time International 1.0 Ratio Sodium Level 139 Potassium Level 5.0 Chloride Level 108 Carbon Dioxide Level 21.1 Anion Gap 10 Blood Urea Nitrogen 13 Creatinine 1.14 Estimat Glomerular Filtration 79 Rate Random Glucose 44 Calcium Level 8.7 Blood Type O POSITIVE Antibody Screen NEGATIVE Result Diagram: 03/16/17 1200 03/16/17 1200 Assessment and Plan Assessment and Plan ASSESSMENT 1. Acute Left Humerus Fracture with Angulation. 2. Hypertension. 3. Diabetes Mellitus, Type 2 with acute hypoglycemia. 4. Coronary Artery Disease. 5. Hyperlipidemia. 6. Peripheral Arterial Disease. 7. Peripheral Neuropathy. 8. Hypothyroidism. 9. Right Below Knee Amputation. 10. Remote Left Thalamic C. V. A. PLAN 1. Admit to the hospital as an Inpatient. 2. Bedrest with Assistance for Bedside Commode. 3. Consultation to Orthopedic Surgery. 4. Blood pressure and blood sugar control. 5. Electrolyte and mineral repletion. 6. Analgesic support. 7. DVT, PE and PUD prophylaxis. Sarkis Piedra MD Mar 16, 2017 18:04
[2017-03-16 19:30] LABS: BICARBONATE 24.6 MEQ/L (21.0-32.0); POTASSIUM 5.3 MEQ/L (3.5-5.1)
[2017-03-16 20:25] VITALS: BP 145/84; PULSE 68; RESP 18; TEMP 97; O2SAT 96
[2017-03-16] MEDS ORDERED: LISINOPRIL 20 MG TAB PO SCH (21:00)
[2017-03-16] MEDS: INSULIN ASPART SUPPLEMENTAL SCALE SQ SCH (21:00)
[2017-03-16] MEDS: SODIUM CHLOR 0.45% 1000 ML INJ 1,000 ML IV SCH ×2 (21:15→23:50)
[2017-03-16 21:21] LABS: HEMATOCRIT 35.6 % (39.0-51.0); MEAN CELL VOLUME 92.1 FL (80.0-100.0); MEAN CORPUSCULAR HGB CONC 32.6 % (32.0-36.0); PLATELET COUNT 212 TH/MM3 (150-450); RED BLOOD COUNT 3.87 MIL/MM3 (4.50-5.90); RED CELL DISTRIBUTION WIDTH 14.4 % (11.6-17.2); REVIEW FLAG FINAL; WHITE BLOOD COUNT 9.4 TH/MM3 (4.0-11.0)
[2017-03-16] MEDS: AMITRIPTYLINE HCL 50 MG TAB PO SCH (23:30)
[2017-03-16] MEDS: oxyCODONE/ACETAMINOPHEN 10 MG/325 MG TAB PO SCH (23:31)
[2017-03-16] MEDS: GABAPENTIN 100 MG CAP PO SCH (23:32)
[2017-03-16] MEDS: DOCUSATE SODIUM 50 MG/SENNA 8.6 MG TAB PO SCH (23:32)
[2017-03-16] MEDS: SODIUM CHLORIDE 0.9% FLUSH 10 ML FLUSH IV FLUSH SCH (23:32)
[2017-03-16] MEDS: MAGNESIUM SULFATE 1 GM PREMIX 100 ML IV SCH (23:48)
[2017-03-17 00:25] VITALS: BP 152/80; PULSE 68; RESP 16; TEMP 96.6; O2SAT 98
[2017-03-17] MEDS: MAGNESIUM SULFATE 1 GM PREMIX 100 ML IV SCH (01:06)
[2017-03-17] MEDS: HYDROmorphone HCL PF 2 MG/ML VIAL IV PUSH PRN (01:07)
[2017-03-17] MEDS: oxyCODONE/ACETAMINOPHEN 10 MG/325 MG TAB PO SCH ×6 (04:22→22:08)
[2017-03-17 04:30] VITALS: BP 152/98; PULSE 66; RESP 17; TEMP 95.7; O2SAT 98
[2017-03-17] MEDS: LEVOTHYROXINE SODIUM 50 MCG TAB PO SCH (05:35)
[2017-03-17] MEDS: INSULIN ASPART SUPPLEMENTAL SCALE SQ SCH ×4 (06:32→21:00)
--- NOTE | 2017-03-17 07:47 | HHI.PR ---
Subjective Remarks He is lying in the bed and states that he is looking forward to the surgery "to get my shoulder fixed". He denies any new adverse changes. The current pain medications are apparently doing well for him. Objective - Vital Signs Date Time Temp Pulse Resp B/P Pulse Ox O2 Delivery O2 Flow Rate FiO2 03/17/17 05:26 18 03/17/17 04:30 95.7 66 17 152/98 98 03/17/17 01:25 18 03/17/17 00:25 96.6 68 16 152/80 98 03/16/17 20:25 97.0 68 18 145/84 96 03/16/17 15:15 95.9 62 19 120/87 98 03/16/17 13:55 77 19 139/72 96 Room Air 03/16/17 10:45 77 22 123/71 94 I/O 03/16/17 03/16/17 03/16/17 03/17/17 03/17/17 03/17/17 07:00 15:00 23:00 07:00 15:00 23:00 Intake Total 480 ml 0 ml Output Total 1350 ml Balance 480 ml -1350 ml Intake Oral 480 ml 0 ml Output Urine Total 1350 ml # Voids 0 # Bowel Movements 0 0 Result Diagram: 03/16/17201703/16/17 1825 Objective Remarks GENERAL: Alert and appears comfortable at this time. SKIN: Warm and dry. HEAD: Normocephalic. Atraumatic. EYES: No scleral icterus. No injection or drainage. NECK: Supple, trachea midline. No JVD or lymphadenopathy. CARDIOVASCULAR: Regular rate and rhythm without murmurs, gallops, or rubs. RESPIRATORY: Breath sounds equal bilaterally. No accessory muscle use. GASTROINTESTINAL: Abdomen soft, non-tender, obese and nondistended. MUSCULOSKELETAL: No cyanosis. Right below knee amputation. There is 2+ edema of the left lower limb. BACK: Nontender without obvious deformity. No CVA tenderness. NEUROLOGICAL: No focal findings. A/P Assessment and Plan ASSESSMENT 1. Acute Left Humerus Fracture with Angulation. 2. Hypomagnesemia-repleted. 3. Chronic Anemia secondary to chronic illness. 4. Hypertension. 5. Diabetes Mellitus, Type 2 with acute hypoglycemia. 6. Coronary Artery Disease. 7. Hyperlipidemia. 8. Peripheral Arterial Disease. 9. Peripheral Neuropathy. 10. Hypothyroidism. 11. Right Below Knee Amputation. 12. Remote Left Thalamic C. V. A. PLAN 1. Orthopedic disposition is for surgical intervention. 2. Laboratory assessments are pending. 3. Bedrest with Assistance for Bedside Commode. 4. Blood pressure and blood sugar control. 5. Sequential Compression Device for the left lower limb. 6. Continue analgesic support. 7. DVT, PE and PUD prophylaxis. Sarkis Piedra MD Mar 17, 2017 07:47
[2017-03-17 08:00] VITALS: BP 137/76; PULSE 67; RESP 19; TEMP 95.9; O2SAT 98
[2017-03-17] MEDS ORDERED: glipiZIDE 10 MG TAB PO SCH (08:00)
[2017-03-17] MEDS ORDERED: PIOGLITAZONE HCL 30 MG TAB PO SCH (09:00)
[2017-03-17] MEDS ORDERED: FUROSEMIDE 20 MG TAB PO SCH (09:00)
[2017-03-17] MEDS: LOSARTAN 50 MG TAB PO SCH (09:13)
[2017-03-17] MEDS: GABAPENTIN 100 MG CAP PO SCH ×2 (09:13→22:14)
[2017-03-17] MEDS: METOPROLOL TARTRATE 50 MG TAB PO SCH (09:13)
[2017-03-17] MEDS: PANTOPRAZOLE SOD 40 MG DELAYED RELEASE TAB PO SCH (09:13)
[2017-03-17] MEDS: PRAVASTATIN SOD 40 MG TAB PO SCH (09:13)
[2017-03-17] MEDS: DOCUSATE SODIUM 50 MG/SENNA 8.6 MG TAB PO SCH ×2 (09:14→22:08)
[2017-03-17] MEDS: SODIUM CHLORIDE 0.9% FLUSH 10 ML FLUSH IV FLUSH SCH ×2 (09:14→22:09)
[2017-03-17] MEDS: DOXAZOSIN MESYLATE 4 MG TAB PO SCH (09:14)
[2017-03-17] MEDS: PNEUMOCOCCAL POLYVALENT INJ 25 MCG/0.5 ML SYR IM ONE ×2 (09:16→10:00)
--- NOTE | 2017-03-17 10:15 | EKG ---
Date Performed: 03/17/2017 Time Performed: 04:43:50 PTAGE: 61 years EKG: Sinus rhythm with aberrantly conducted supraventricular complexes Inferior and lateral ST elevation - possible ea rly repolarization ST junctional depression is nonspecific Low QRS voltages in limb leads Borderline ECG Since PREVIOUS TRACING , no significant change noted PREVIOUS TRACIN03/17/2016 00.28 DOCTOR: Hernán Dong Interpretating Date/Time 03/17/2017 10:13:46
[2017-03-17] MEDS ORDERED: ceFAZolin 2 GM PREMIX 50 ML ONE (11:11)
[2017-03-17] MEDS ORDERED: VANCOMYCIN HCL 1000 MG VIAL ONE ×2 (11:11→12:22)
[2017-03-17] MEDS ORDERED: GENTAMICIN SULFATE 80 MG/2 ML VIAL ONE (11:12)
[2017-03-17] MEDS ORDERED: SODIUM CHLOR 0.9% 250 ML INJ 250 ML ONE (11:12)
[2017-03-17] MEDS ORDERED: ceFAZolin INJ 1,000 MG VIAL ONE (11:12)
[2017-03-17] MEDS ORDERED: SUGAMMADEX SODIUM 200 MG/2 ML VIAL IV PUSH ONE ×2 (11:24)
[2017-03-17] MEDS ORDERED: VASOPRESSIN INJ 20 UNITS/ML VIAL ONE (11:24)
[2017-03-17] MEDS ORDERED: LACTATED RINGER'S 1000 ML IV PRN (11:45)
[2017-03-17] MEDS ORDERED: INSULIN HUMAN REGULAR 1,000 UNITS/10 ML VIAL SQ PRN (11:45)
[2017-03-17] MEDS ORDERED: CHLORHEXIDINE GLUCONATE 2 % 1 PACK (2 CLOTHS) TOPICAL PRN (11:45)
[2017-03-17] MEDS ORDERED: SODIUM CHLORID 0.9% 500 ML IV PRN (11:45)
[2017-03-17] MEDS ORDERED: METOPROLOL TARTRATE 25 MG TAB PO PRN (11:45)
[2017-03-17] MEDS ORDERED: POVIDONE IODINE 5% (ANTISEPSIS KIT) 4 APPLICATIONS EACH NARE PRN (11:45)
[2017-03-17] MEDS ORDERED: KETAMINE HCL 500 MG/5 ML VIAL ONE (11:48)
[2017-03-17] MEDS ORDERED: FAMOTIDINE 20 MG/2 ML VIAL ONE (11:48)
[2017-03-17] MEDS ORDERED: fentaNYL CITRATE 250 MCG/5 ML AMP ONE (11:48)
[2017-03-17] MEDS ORDERED: MIDAZOLAM HCL 2 MG/2 ML VIAL ONE (11:48)
[2017-03-17] MEDS ORDERED: PHENYLEPH/NS 1000 MCG/10 ML SYR IV ONE (12:00)
[2017-03-17] MEDS ORDERED: ePHEDrine/NS 25 MG/5 ML SYR IV ONE (12:00)
[2017-03-17] MEDS ORDERED: ONDANSETRON HCL 4 MG/2 ML VIAL IV PUSH ONE (12:00)
[2017-03-17] MEDS ORDERED: PROPOFOL 200 MG/20 ML AMP IV ONE (12:00)
--- NOTE | 2017-03-17 12:51 | PD.CONS ---
cc: Amaury Carmen Jr., MD HPI Service Orthopedic Surgeons Consult Requested By Primary Care Physician Sarkis Piedra MD Admission Diagnosis distal humerus fracture Diagnoses: Chief Complaint: left distal humerus fracture History of Present Illness 61 year old male with complicated pmhx including DM s/p right BKA presents s/p fall with left arm pain. He stayed on the floor until an individual came to his house. He was found lying on the floor after a few hours and emergency services were called. He was transported to the [facility] emergency room for evaluation. xrays in the ED revealed displaced distal humerus fracture. pain 6/10, nonradiating, inability to extend his fingers, pain exacerbated by ROM, relieved at rest and iv pain meds. There is denial of any syncope, vertigo, severe headache or palpitations. No recent major illness or infection. ROS - General Review of Systems He denies any major adverse changes prior to the current event. 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 Hypertension. 2. Hyperlipidemia. 3. Diabetes Mellitus, Type 2. 4. Diabetic Retinopathy. 5. Diabetic Neuropathy. 6. Peripheral Arterial Disease. 7. Osteoarthritis. 8. Chronic Low Back Syndrome. 9. Hypothyroidism. 10. Chronic Diastolic Congestive Heart Failure. 11. Gastroesophageal Reflux Disease. 12. Osteoarthritis. 13. Left Thalamic Cerebral Vascular Accident. 13. Gout. 14. Chronic Anemia secondary to chronic illness. 15. Chronic Peptic Ulcer Disease. 16. Obesity. 13. Osteomyelitis of Left Great Toe. Past Surgical History 1. Cholecystectomy---2008. 2. Abscess Drainage of the Right Foot---2008. 3. Amputation of the Left Great Toe---2011. 4. Amputation of Toes of the Right Foot---2013. 5. Right Below Knee Amputation---2013. 6. Cardiac Loop Recorder placement---2015. Family History There is a personal family history of Diabetes Mellitus, Type 2, Heart Disease and Hypertension in several family members. Social History He is and lives at home with his . He is a nonsmoker. He drinks alcohol excessively at times. He still averages about 12 beers daily. There is no history of any recreational drug use. Past Family Social History Allergies: Coded Allergies: *MDRO Multi-Drug Resistant Organism (Verified Allergy, Unknown, 03/17/17) MRSA PCR screen positive 03/17/17 Acinetobacter 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 Aspirin (Verified Adverse Reaction, Severe, 03/16/17) not allergic; takes Coumadin/ states aspirin causes fever Active Ordered Medications Current Medications Medications (Trade) Dose Ordered Sig/Kuldip Route Start Time Stop Time Status Last Admin (NS Flush) 2 ml UNSCH PRN IV FLUSH 03/16/17 12:45 (NS Flush) 2 ml BID IV FLUSH 03/16/17 21:00 03/17/17 09:14 (Zofran Inj) 4 mg Q6H PRN IVP 03/16/17 12:45 (Restoril) 15 mg HS PRN PO 03/16/17 12:45 03/16/17 23:48 (Heparin Inj) 5,000 units Q12H SQ 03/16/17 14:00 Hold (Narcan Inj) 0.4 mg UNSCH PRN IV 03/16/17 12:45 (Vijaya-Colace) 1 tab BID PO 03/16/17 21:00 03/17/17 09:14 (Milk Of Magnesia Liq) 30 ml Q12H PRN PO 03/16/17 12:45 (Senokot) 17.2 mg Q12H PRN PO 03/16/17 12:45 (Dulcolax Supp) 10 mg DAILY PRN RECTAL 03/16/17 12:45 (Lactulose Liq) 30 ml DAILY PRN PO 03/16/17 12:45 (Dilaudid Pf Inj) 2 mg Q4H PRN IV PUSH 03/16/17 16:45 03/17/17 01:07 (Elavil) 50 mg HS PO 03/16/17 21:00 03/16/17 23:30 (Norvasc) 10 mg DAILY PO 03/17/17 09:00 03/17/17 09:13 (Cardura) 4 mg DAILY PO 03/17/17 09:00 03/17/17 09:14 (Neurontin) 200 mg BID@08,20 PO 03/16/17 20:00 03/17/17 09:13 (Synthroid) 50 mcg DAILY@06 PO 03/17/17 06:00 03/17/17 05:35 (Cozaar) 100 mg DAILY PO 03/17/17 09:00 03/17/17 09:13 (Pravachol) 40 mg DAILY PO 03/17/17 09:00 03/17/17 09:13 (Lopressor) 50 mg DAILY PO 03/17/17 09:00 03/17/17 09:13 (Percocet 10-325 Mg) 1 tab Q4HR PO 03/16/17 20:00 03/17/17 09:13 (Protonix) 40 mg DAILY PO 03/17/17 09:00 03/17/17 09:13 (Restoril) 30 mg HS PRN PO 03/16/17 16:45 (D50w (Vial) Inj) 50 ml UNSCH PRN IV 03/16/17 17:15 (Glucagon Inj) 1 mg UNSCH PRN OTHER 03/16/17 17:15 Miscellaneous 1 ea 1 ea UNSCH PRN OTHER 03/16/17 17:15 (1/2 NS 1000 ml Inj) 1,000 ml @ 84 mls/hr [id number] IV 03/16/17 21:15 03/16/17 23:50 Pneumococcal Polyvalent Vaccine 25 mcg 25 mcg ONCE ONCE IM 03/18/17 10:00 03/18/17 10:01 Lactated Ringer's 1,000 ml @ 30 mls/hr Q24H PRN IV 03/17/17 11:45 03/20/17 11:44 (NS 500 ml Inj) 500 ml @ 30 mls/hr [id number] PRN IV 03/17/17 11:45 03/20/17 11:44 Reported Meds & Active Scripts Active Plavix (Clopidogrel Bisulfate) 75 Mg Tab 75 Mg PO DAILY Reported Protonix (Pantoprazole Sodium) 40 Mg Tab 40 Mg PO DAILY Losartan (Losartan Potassium) 100 Mg Tab 100 Mg PO DAILY Omeprazole 20 Mg Tab 20 Mg PO DAILY Doxazosin (Doxazosin Mesylate) 4 Mg Tab 4 Mg PO DAILY Pioglitazone (Pioglitazone HCl) 30 Mg Tab 30 Mg PO DAILY Lovastatin 40 Mg Tab 40 Mg PO DAILY Amitriptyline (Amitriptyline HCl) 50 Mg Tab 50 Mg PO HS Amlodipine (Amlodipine Besylate) 10 Mg Tab 10 Mg PO DAILY Lisinopril 20 Mg Tab 20 Mg PO BID Temazepam 30 Mg Cap 30 Mg PO HS PRN Glipizide 10 Mg Tab 10 Mg PO DAILY Take 30 minutes before a meal Metformin (Metformin HCl) 500 Mg Tab 500 Mg PO BIDPC With meals Furosemide 40 Mg Tab 50 Mg PO DAILY Gabapentin 400 Mg Cap 100 Cap PO QID Oxycodone-Acetaminophen 10-325 mg Tab 1 Tab PO Q4HR Levothyroxine (Levothyroxine Sodium) 50 Mcg Tab 50 Mcg PO DAILY Metoprolol Tartrate 50 Mg Tab 50 Mg PO DAILY Physical Exam Vital Signs Vital Signs Date Time Temp Pulse Resp B/P Pulse Ox O2 Delivery O2 Flow Rate FiO2 03/17/17 08:00 95.9 67 19 137/76 98 03/17/17 05:26 18 03/17/17 04:30 95.7 66 17 152/98 98 03/17/17 01:25 18 03/17/17 00:25 96.6 68 16 152/80 98 03/16/17 20:25 97.0 68 18 145/84 96 03/16/17 15:15 95.9 62 19 120/87 98 03/16/17 13:55 77 19 139/72 96 Room Air Physical Exam AAOx3 NAD neck: trachea midline resp: normal resp effort abd- NT. ND RUE- no deformity. grossly nvi LUE- splint in place, radial n palsy, 2/3 finger extension, decreased radial n sensation, ain, ulnar intact. 2+ pulses RLE- BKA LLE- pedal edema, grossly nvi. sILT distally Laboratory Laboratory Tests Test 03/16/17 03/16/17 03/17/17 18:25 20:18 00:07 Sodium Level 136 Potassium Level 5.3 Chloride Level 105 Carbon Dioxide Level 24.6 Anion Gap 6 Blood Urea Nitrogen 14 Creatinine 0.97 Estimat Glomerular Filtration 95 Rate Random Glucose 110 Calcium Level 8.5 Magnesium Level 1.5 White Blood Count 9.4 Red Blood Count 3.87 Hemoglobin 11.6 Hematocrit 35.6 Mean Corpuscular Volume 92.1 Mean Corpuscular Hemoglobin 30.0 Mean Corpuscular Hemoglobin 32.6 Concent Red Cell Distribution Width 14.4 Platelet Count 212 Mean Platelet Volume 8.6 Nasal Screen MRSA (PCR) MRSA DETECTED Result Diagram: 03/16/17201703/16/17 1825 Imaging Last 72 hours Impressions Humerus X-Ray 03/16/17 0000 Signed Impressions: Service Date/Time: March 11:33 - CONCLUSION: 1. Distal humeral fracture with angular deformity. Dion Shannon MD Elbow X-Ray 03/16/17 0000 Signed Impressions: Service Date/Time: March 11:37 - CONCLUSION: There is an oblique displaced and angulated fracture of the distal humeral metadiaphysis. Efrain Potts MD Chest X-Ray 03/16/17 0000 Signed Impressions: Service Date/Time: March 12:29 - CONCLUSION: Linear opacity at the left lung base representing either atelectasis or scar. Otherwise, no acute finding is identified. Efrain Potts MD Assessment & Plan Assessment and Plan 61yo male h/o DM, BKA s/p fall sustaining a closed left distal humerus. He has radial palsy, otherwise grossly nvi. I recommend ORIF left distal humerus. Risks ,benefits and alternatives discussed. All questions answered. The patients understand and agrees with my recommendations. He understands symptoms from post traumatic radial n palsies can last up to 6 months. -OR today. -Amaury Ervin Jr., MD Mar 17, 2017 12:51
[2017-03-17] MEDS ORDERED: ACETAMINOPHEN 325 MG TAB PO PRN (14:45)
[2017-03-17] MEDS ORDERED: oxyCODONE/ACETAMINOPHEN 5 MG/325 MG TAB PO PRN (14:45)
[2017-03-17] MEDS ORDERED: MORPHINE SULFATE 8 MG/ML INJ IV PUSH PRN (14:45)
--- NOTE | 2017-03-17 14:46 | PD.OP ---
cc: Amaury Carmen Jr., MD Operative Report Date of Surgery: Mar 17, 2017 Preoperative Diagnosis: Left closed long spiral distal humerus fracture Postoperative Diagnosis: Same Procedure: Left distal humerus open reduction internal fixation Anesthesia: Gen. Surgeon: Amaury Carmen Machine Woodworking Sander(s): ELVER Head The surgical procedure was assisted by my Advanced Registered Nurse Practitioner. My SENIOR CONTRACT SPECIALIST presence was necessary throughout this case for the manipulation and positioning of the surgical extremity. My SENIOR CONTRACT SPECIALIST was assisting me throughout the duration of this procedure. The skill set of an Advance Registered Nurse Practitioner was medically necessary to complete this procedure. During the surgical case, the surgical technician was working at the back table and the Advance Registered Nurse Practitioner was directly assisting me. Resident Surgeon: None Operation and Findings: Patient was seen and evaluated preoperatively and found to have a extra articular displaced long spiral distal humerus fracture. Patient has preoperative radial nerve palsy. Informed consent was obtained after detailed discussion of risk and benefits including bleeding, infection, injury to arteries, nerves, and blood vessels, weakness and numbness of hand, radial nerve injury, and tendon rupture. Informed consent was obtained. Patient received IV antibiotics prior to incision. Timeout procedure was performed. Operative extremity was prepped with alcohol followed by Hibiclens and draped usual sterile fashion. A standard posterior approach to the arm was performed, starting just distal to the olecranon and extending proximally to the level of the midshaft of the humerus. Dissection taken down to the tricepital fascia, then paratricipital to the level of the lateral condyle. The radial nerve was found entrapped in fracture fragments and was released. A vessel loop was placed around the nerve and the nerve was kept in direct visualization and protected throughout the entire procedure. The fracture site was now visualized. The fracture ends were sharply debrided and cleaned. Fracture fragments were manipulated to achieve excellent reduction. K wires were used to hold provisional fixation. Fluoroscopy confirmed appropriate alignment of fracture. A Synthes posterolateral column plate was selected. The 2 major fracture fragments where fixed with 2x 2.7mm lag screws, prior to neutralization with the plate. The Plate was provisionally fixed to bone with K wires. 3.5 cortical screws were used to compress plate to bone. Fluoroscopy confirmed appropriate alignment of fracture with well-placed hardware. Multiple 3.5 locking screws were now placed. Screws were predrilled and measured for appropriate length. K wires were removed. Final fluoroscopy revealed excellent reduction of fracture with well-placed hardware. The wound was thoroughly irrigated with sterile saline. Subcutaneous tissue was closed with 2-0 vicryl, 3-0 Vicryl and skin was closed with 2.0 nylon. Sterile dressings were applied with Xeroform, 4 x 4, soft roll, and a well padded long-arm posterior splint. Patient was awakened and transferred to recovery room in stable condition IMPLANTS USED Synthes POSTP-OP PLAN OF ACTIVITY Antibiotics: Ancef, vancomycin Antiocoagulation: Lovenox Weight bearing status: none Dressing: Do not remove splints Future procedure planned:none Dispo: ok to dc from ortho once pain is controlled. Amaury Carmen Jr., MD Mar 17, 2017 14:46
--- NOTE | 2017-03-17 14:48 | PD.ORT.PN ---
Subjective Subjective Remarks No issues. Range of Motion Alert awake and oriented x 3. No acute distress. Neck: No pain with any range of motion and neck. Pulmonary: Normal respiratory effort. Left upper extremity: Preoperative radial nerve palsy. Decreased radial n sensation. otherwise groslly nvi. splint in place, CDI. Objective Vitals Vital Signs Date Time Temp Pulse Resp B/P Pulse Ox O2 Delivery O2 Flow Rate FiO2 03/17/17 08:00 95.9 67 19 137/76 98 03/17/17 05:26 18 03/17/17 04:30 95.7 66 17 152/98 98 03/17/17 01:25 18 03/17/17 00:25 96.6 68 16 152/80 98 03/16/17 20:25 97.0 68 18 145/84 96 03/16/17 15:15 95.9 62 19 120/87 98 I/O 03/16/17 03/16/17 03/16/17 03/17/17 03/17/17 03/17/17 07:00 15:00 23:00 07:00 15:00 23:00 Intake Total 480 ml 0 ml 726 ml Output Total 1350 ml Balance 480 ml -1350 ml 726 ml Intake Oral 480 ml 0 ml IV Total 726 ml Output Urine Total 1350 ml # Voids 0 # Bowel Movements 0 0 Result Diagram: 03/16/17201703/16/17 1825 Assessment & Plan Assessment and Plan POD-0 Left distal humerus ORIF- preop radial n palsy Antibiotics: Ancef, vancomycin Antiocoagulation: Lovenox Weight bearing status: none Dressing: Do not remove splints Future procedure planned:none Dispo: ok to dc from ortho once pain is controlled. Amaury Carmen Jr., MD Mar 17, 2017 14:48
[2017-03-17] MEDS ORDERED: PERC5TAB12 PO (14:49)
--- NOTE | 2017-03-17 14:55 | RADRPT ---
EXAM DATE/TIME: 03/17/2017 13:41 [place] COMPARISON: HUMERUS LEFT (MIN 2VWS), March 16, 2017, 11:33. INDICATIONS : ORIF Left humerus. MEDICAL HISTORY : Congestive heart failure. Hypercholesterolemia. Hypertension. Ulcer. SURGICAL HISTORY : Cholecystectomy. ENCOUNTER: Subsequent ACUITY: 1 day PAIN SCORE: Non-responsive. LOCATION: Left humerus FINDINGS: Alignment anatomic following open reduction and internal fixation. CONCLUSION: Anatomic alignment. Parvez Weber MD FACR on March 17, 2017 at 14:51 Board Certified Radiologist. This report was verified electronically.
[2017-03-17] MEDS ORDERED: DO NOT ADM ANY ANTICOAGULANT DRUGS PRN (15:42)
[2017-03-17] MEDS ORDERED: *RESP: ALBUTEROL 2.5 MG/3 ML NEB (PRN) PERIprocedural Use ONLY NEB ONE (15:52)
[2017-03-17] MEDS ORDERED: SODIUM CHLORIDE 0.9% FLUSH 10 ML FLUSH IV FLUSH PRN (16:00)
[2017-03-17] MEDS ORDERED: ONDANSETRON HCL 4 MG/2 ML VIAL IV PRN (16:00)
[2017-03-17] MEDS ORDERED: ZOLPIDEM TARTRATE 5 MG TAB PO PRN (16:00)
[2017-03-17] MEDS ORDERED: KETOROLAC TROMETHAMINE 30 MG/ML (IVP) VIAL IVP ONE (16:00)
[2017-03-17] MEDS ORDERED: PROMETHAZINE INJ 25 MG/ML VIAL IM PRN (18:00)
[2017-03-17 18:10] VITALS: O2SAT 97
[2017-03-17 18:26] VITALS: BP 127/76; PULSE 70; RESP 21; TEMP 96.3; O2SAT 94
[2017-03-17 20:15] VITALS: BP 134/90; PULSE 72; RESP 19; TEMP 97.3; O2SAT 94
[2017-03-17] MEDS: SODIUM CHLOR 0.45% 1000 ML INJ 1,000 ML IV SCH (21:05)
[2017-03-17] MEDS: AMITRIPTYLINE HCL 50 MG TAB PO SCH (22:08)
[2017-03-17] MEDS: DOCUSATE SODIUM 100 MG CAP PO SCH (22:08)
[2017-03-17 22:31] LABS: AUTOMATED NEUTROPHIL # 6.1 TH/MM3 (1.8-7.7); BASOPHIL % 0.3 % (0.0-2.0); EOSINOPHIL # 0.2 TH/MM3 (0-0.4); EOSINOPHIL % 2.6 % (0.0-4.0); HEMATOCRIT 35.4 % (39.0-51.0); HEMO FLAGS DIFF FINAL; LYMPH % 15.3 % (9.0-44.0); LYMPHOCYTE # 1.2 TH/MM3 (1.0-4.8); MEAN CELL VOLUME 91.4 FL (80.0-100.0); MEAN CORPUSCULAR HEMOGLOBIN 29.9 PG (27.0-34.0); MEAN CORPUSCULAR HGB CONC 32.7 % (32.0-36.0); NEUT % 75.8 % (16.0-70.0); PLATELET COUNT 184 TH/MM3 (150-450); RED BLOOD COUNT 3.88 MIL/MM3 (4.50-5.90); RED CELL DISTRIBUTION WIDTH 14.2 % (11.6-17.2); WHITE BLOOD COUNT 8.1 TH/MM3 (4.0-11.0)
[2017-03-17 22:46] LABS: ANION GAP 7 MEQ/L (5-15); AST (GOT) 41 U/L (15-37); BICARBONATE 24.6 MEQ/L (21.0-32.0); BLOOD UREA NITROGEN 18 MG/DL (7-18); CHLORIDE 103 MEQ/L (98-107); GLOMERULAR FILTRATION RATE 73 ML/MIN (>89); MAGNESIUM 1.7 MG/DL (1.5-2.5); POTASSIUM 5.3 MEQ/L (3.5-5.1); SODIUM (NA) 135 MEQ/L (136-145)
[2017-03-17 22:50] LABS: ALKALINE PHOSPHATASE 74 U/L (45-117); ALT (GPT) 20 U/L (12-78); TOTAL BILIRUBIN ADULT 0.4 MG/DL (0.2-1.0)
[2017-03-18 00:25] VITALS: BP 140/74; PULSE 82; RESP 19; TEMP 98.6; O2SAT 93
[2017-03-18] MEDS: oxyCODONE/ACETAMINOPHEN 10 MG/325 MG TAB PO SCH ×6 (00:58→21:00)
[2017-03-18 04:35] VITALS: BP 152/76; PULSE 85; RESP 18; TEMP 99.6; O2SAT 92
[2017-03-18] MEDS: LEVOTHYROXINE SODIUM 50 MCG TAB PO SCH (05:58)
[2017-03-18] MEDS: INSULIN ASPART SUPPLEMENTAL SCALE SQ SCH ×4 (07:00→21:03)
--- NOTE | 2017-03-18 07:38 | PD.ORT.PN ---
Subjective Subjective Remarks pt doing better still has numbness involving left hand, limited motor function Objective Vitals Vital Signs Date Time Temp Pulse Resp B/P Pulse Ox O2 Delivery O2 Flow Rate FiO2 03/18/17 06:56 18 03/18/17 04:35 99.6 85 18 152/76 92 03/18/17 00:25 98.6 82 19 140/74 93 03/17/17 20:15 97.3 72 19 134/90 94 03/17/17 18:26 96.3 70 21 127/76 94 03/17/17 18:10 97 21 03/17/17 16:55 67 16 110/69 95 Room Air 03/17/17 16:45 97.6 66 16 115/73 95 Room Air 03/17/17 16:30 67 15 118/65 98 Nasal Cannula 3 03/17/17 16:15 69 15 114/69 97 Nasal Cannula 3 03/17/17 16:00 66 15 111/74 94 Nasal Cannula 3 03/17/17 15:50 64 14 106/60 100 Simple Mask 8 03/17/17 15:42 97.8 65 14 92/52 98 Simple Mask 8 03/17/17 08:00 95.9 67 19 137/76 98 I/O 03/17/17 03/17/17 03/17/17 03/18/17 03/18/17 03/18/17 07:00 15:00 23:00 07:00 15:00 23:00 Intake Total 0 ml 726 ml 1430 ml 240 ml Output Total 1350 ml 1500 ml 1200 ml Balance -1350 ml 726 ml -70 ml -960 ml Intake Oral 0 ml 480 ml 240 ml IV Total 726 ml 50 ml Other 900 ml Output Urine Total 1350 ml 1300 ml 1200 ml Estimated Blood Loss 200 ml # Bowel Movements 0 0 0 Result Diagram: 03/17/17214603/17/172146 Objective Remarks seen by Dr. Lavell Duque left arm in splint and vic wrap left radial nerve palsy right BKA Assessment & Plan Assessment and Plan POD-#2 Left distal humerus ORIF- preop radial n palsy Antibiotics: Ancef, vancomycin Antiocoagulation: Lovenox Weight bearing status: none Dressing: Do not remove splints Future procedure planned:none Dispo: ok to dc from ortho standpoint, stable Mariaelena Kruger 5, 2017 07:38
[2017-03-18 08:00] VITALS: BP 127/72; PULSE 83; RESP 18; TEMP 98.3; O2SAT 96
[2017-03-18] MEDS: METOPROLOL TARTRATE 50 MG TAB PO SCH (08:46)
[2017-03-18] MEDS: LOSARTAN 50 MG TAB PO SCH (08:46)
[2017-03-18] MEDS: GABAPENTIN 100 MG CAP PO SCH ×2 (08:46→21:01)
[2017-03-18] MEDS: PRAVASTATIN SOD 40 MG TAB PO SCH (08:46)
[2017-03-18] MEDS: PANTOPRAZOLE SOD 40 MG DELAYED RELEASE TAB PO SCH (08:47)
[2017-03-18] MEDS: DOCUSATE SODIUM 100 MG CAP PO SCH ×2 (08:47→21:00)
[2017-03-18] MEDS: DOCUSATE SODIUM 50 MG/SENNA 8.6 MG TAB PO SCH ×2 (08:47→21:00)
[2017-03-18] MEDS: DOXAZOSIN MESYLATE 4 MG TAB PO SCH (08:47)
[2017-03-18] MEDS: SODIUM CHLOR 0.45% 1000 ML INJ 1,000 ML IV SCH (08:53)
[2017-03-18] MEDS: SODIUM CHLORIDE 0.9% FLUSH 10 ML FLUSH IV FLUSH SCH ×2 (08:54→21:01)
[2017-03-18] MEDS ORDERED: BUMETANIDE INJ 1 MG/4 ML VIAL IV PUSH ONE ×2 (09:00→21:00)
[2017-03-18] MEDS ORDERED: PNEUMOCOCCAL POLYVALENT INJ 25 MCG/0.5 ML SYR IM ONE (10:00)
[2017-03-18 11:03] LABS: BASOPHIL % 0.4 % (0.0-2.0); EOSINOPHIL # 0.2 TH/MM3 (0-0.4); EOSINOPHIL % 3.4 % (0.0-4.0); HEMATOCRIT 32.4 % (39.0-51.0); HEMO FLAGS DIFF FINAL; LYMPH % 13.1 % (9.0-44.0); LYMPHOCYTE # 0.9 TH/MM3 (1.0-4.8); MEAN CELL VOLUME 91.2 FL (80.0-100.0); MEAN CORPUSCULAR HEMOGLOBIN 30.2 PG (27.0-34.0); MEAN CORPUSCULAR HGB CONC 33.1 % (32.0-36.0); NEUT % 76.1 % (16.0-70.0); PLATELET COUNT 176 TH/MM3 (150-450); RED BLOOD COUNT 3.56 MIL/MM3 (4.50-5.90); RED CELL DISTRIBUTION WIDTH 14.3 % (11.6-17.2); WHITE BLOOD COUNT 6.6 TH/MM3 (4.0-11.0)
[2017-03-18 11:20] LABS: BICARBONATE 23.9 MEQ/L (21.0-32.0); POTASSIUM 4.7 MEQ/L (3.5-5.1)
[2017-03-18 11:52] VITALS: BP 85/56; PULSE 78; RESP 17; TEMP 97.9; O2SAT 93
[2017-03-18] MEDS: VANCOMYCIN INJ 1,000 MG in SODIUM CHLOR 0.9% 250 ML INJ 250 ML IV SCH ×3 (12:22)
[2017-03-18 16:00] VITALS: BP 104/62; PULSE 72; RESP 18; TEMP 96.1; O2SAT 99
[2017-03-18] MEDS: ENOXAPARIN SODIUM 30 MG/0.3 ML SYRINGE SQ SCH (16:09)
--- NOTE | 2017-03-18 19:55 | HHI.PR ---
Subjective Remarks The patient is sitting up on the side of the bed and states that he feel some better with lots of the swelling for his left leg having gone down after the diuresis today. He was seen by Orthopedic Surgery with disposition given. He is still with some fluid retention, but definitely improved. He is without major adverse changes otherwise. He appears to be tolerating all of his current medications well. He reports that he has found the materials for the use of his right lower extremity below knee prosthesis. Physical therapy may now fully work with him. Objective - Vital Signs Date Time Temp Pulse Resp B/P Pulse Ox O2 Delivery O2 Flow Rate FiO2 03/18/17 17:10 10 03/18/17 16:00 96.1 72 18 104/62 99 03/18/17 11:52 97.9 78 17 85/56 93 03/18/17 08:00 98.3 83 18 127/72 96 03/18/17 04:35 99.6 85 18 152/76 92 03/18/17 00:25 98.6 82 19 140/74 93 03/17/17 20:15 97.3 72 19 134/90 94 I/O 03/17/17 03/17/17 03/17/17 03/18/17 03/18/17 03/18/17 07:00 15:00 23:00 07:00 15:00 23:00 Intake Total 0 ml 726 ml 1430 ml 240 ml 720 ml Output Total 1350 ml 1500 ml 1200 ml 1200 ml Balance -1350 ml 726 ml -70 ml -960 ml -480 ml Intake Oral 0 ml 480 ml 240 ml 720 ml IV Total 726 ml 50 ml Other 900 ml Output Urine Total 1350 ml 1300 ml 1200 ml 1200 ml Estimated Blood Loss 200 ml # Bowel Movements 0 0 0 1 Result Diagram: 03/18/17 1040 03/18/17 1040 Objective Remarks GENERAL: Alert and in no distress at this time. SKIN: Warm and dry. HEAD: Normocephalic. EYES: No scleral icterus. No injection or drainage. NECK: Supple, trachea midline. No JVD or lymphadenopathy. CARDIOVASCULAR: Regular rate and rhythm without murmurs, gallops, or rubs. RESPIRATORY: Breath sounds equal bilaterally. No accessory muscle use. GASTROINTESTINAL: Abdomen soft, non-tender, nondistended. MUSCULOSKELETAL: No cyanosis. There is less edema of the left lower limb, but still at approximately 1+. BACK: Nontender without obvious deformity. No CVA tenderness. A/P Assessment and Plan ASSESSMENT 1. Open Reduction and Internal Fixation of the Left Humerus. 2. Acute Left Humerus Fracture with Angulation. 3. Hypomagnesemia-repleted. 4. Chronic Anemia secondary to chronic illness. 5. Hypertension. 6. Diabetes Mellitus, Type 2 with acute hypoglycemia. 7. Coronary Artery Disease. 8. Hyperlipidemia. 9. Peripheral Arterial Disease. 10. Peripheral Neuropathy. 11. Hypothyroidism. 12. Right Below Knee Amputation. 13. Remote Left Thalamic C. V. A. PLAN 1. Orthopedic final disposition is given. 2. Physical Therapy and Occupational Therapy. 3. Up with Physical Therapy when he has all materials for the BKA prosthesis. 4. Blood pressure and blood sugar control. 5. Sequential Compression Device for the left lower limb. 6. Discharge Planning for Rehab at a SNF. 7. DVT, PE and PUD prophylaxis. Sarkis Piedra MD Mar 18, 2017 19:55
[2017-03-18 20:00] VITALS: BP 109/70; PULSE 78; RESP 22; TEMP 97.5; O2SAT 98
[2017-03-18] MEDS: AMITRIPTYLINE HCL 50 MG TAB PO SCH (21:00)
[2017-03-19] VITALS: BP 138/81; PULSE 84; RESP 20; TEMP 97.2; O2SAT 96
[2017-03-19] MEDS: oxyCODONE/ACETAMINOPHEN 10 MG/325 MG TAB PO SCH ×6 (00:26→21:05)
[2017-03-19] MEDS: VANCOMYCIN INJ 1,000 MG in SODIUM CHLOR 0.9% 250 ML INJ 250 ML IV SCH ×2 (01:41→11:15)
[2017-03-19 04:00] VITALS: BP 150/87; PULSE 93; RESP 20; TEMP 97.3; O2SAT 96
[2017-03-19] MEDS: LEVOTHYROXINE SODIUM 50 MCG TAB PO SCH (05:01)
[2017-03-19 05:45] LABS: BACTERIA, URINE FEW /hpf; BLOOD, URINE MOD (NEG); COMMENT (UR) CULTURE INDICATED; CULTURE IF INDICATED CULTURE INDICATED; GLUCOSE,URINE NEG (NEG); KETONE, URINE NEG (NEG); MUCUS URINE FEW /lpf (OCC); NITRITE,URINE NEG (NEG); URINE COLOR LIGHT-YELLOW (YELLW/STRAW)
[2017-03-19] MEDS: INSULIN ASPART SUPPLEMENTAL SCALE SQ SCH ×4 (06:14→21:07)
[2017-03-19 08:00] VITALS: BP 136/65; PULSE 80; RESP 18; TEMP 100; O2SAT 96
--- NOTE | 2017-03-19 08:13 | PD.ORT.PN ---
Subjective Subjective Remarks pt doing better still has numbness involving left hand, limited motor function missing component to his right sided BKA, it arrived to hospital last night but therapy was unable to work with him and get him out of bed during day Objective Vitals Vital Signs Date Time Temp Pulse Resp B/P Pulse Ox O2 Delivery O2 Flow Rate FiO2 03/19/17 04:00 97.3 93 20 150/87 96 03/19/17 00:00 97.2 84 20 138/81 96 03/18/17 20:00 97.5 78 22 109/70 98 03/18/17 17:10 10 03/18/17 16:00 96.1 72 18 104/62 99 03/18/17 11:52 97.9 78 17 85/56 93 I/O 03/18/17 03/18/17 03/18/17 03/19/17 03/19/17 03/19/17 07:00 15:00 23:00 07:00 15:00 23:00 Intake Total 240 ml 720 ml 360 ml 240 ml Output Total 1200 ml 1200 ml 675 ml 1050 ml Balance -960 ml -480 ml -315 ml -810 ml Intake Oral 240 ml 720 ml 360 ml 240 ml Output Urine Total 1200 ml 1200 ml 675 ml 1050 ml # Bowel Movements 0 1 Result Diagram: 03/18/17 1040 03/18/17 1040 Objective Remarks seen by Dr. Lavell Duque left arm in splint and vic wrap left radial nerve palsy right BKA Assessment & Plan Assessment and Plan POD-#3 Left distal humerus ORIF- preop radial n palsy Antibiotics: Ancef, vancomycin Antiocoagulation: Lovenox Weight bearing status: none Dressing: Do not remove splints Future procedure planned:none Dispo: PT to work with patient today(did not have piece to right prosthesis until late last night and therefore was unable to get out of bed to work with PT ) and anticipate discharge tomorrow, 03/20 Mariaelena Kruger Mar 19, 2017 08:13
[2017-03-19] MEDS: LOSARTAN 50 MG TAB PO SCH (08:40)
[2017-03-19] MEDS: GABAPENTIN 100 MG CAP PO SCH ×2 (08:40→21:05)
[2017-03-19] MEDS: PANTOPRAZOLE SOD 40 MG DELAYED RELEASE TAB PO SCH (08:41)
[2017-03-19] MEDS: METOPROLOL TARTRATE 50 MG TAB PO SCH (08:41)
[2017-03-19] MEDS: DOCUSATE SODIUM 100 MG CAP PO SCH ×2 (08:41→21:05)
[2017-03-19] MEDS: PRAVASTATIN SOD 40 MG TAB PO SCH (08:41)
[2017-03-19] MEDS: DOCUSATE SODIUM 50 MG/SENNA 8.6 MG TAB PO SCH ×2 (08:41→21:05)
[2017-03-19] MEDS: DOXAZOSIN MESYLATE 4 MG TAB PO SCH (08:42)
[2017-03-19] MEDS: SODIUM CHLORIDE 0.9% FLUSH 10 ML FLUSH IV FLUSH SCH ×2 (08:42→21:06)
[2017-03-19 12:00] VITALS: BP 97/50; PULSE 81; RESP 18; TEMP 97.9; O2SAT 94
[2017-03-19] MEDS: FUROSEMIDE 40 MG TAB PO SCH (12:01)
[2017-03-19 16:00] VITALS: BP 132/92; PULSE 76; RESP 18; TEMP 98.4; O2SAT 96
[2017-03-19] MEDS: ENOXAPARIN SODIUM 30 MG/0.3 ML SYRINGE SQ SCH (16:02)
--- NOTE | 2017-03-19 19:31 | HHI.PR ---
Subjective Remarks He is sitting on the side of the bed and preparing to eat his dinner. He states that he is ready for going to the Rehab Center when arrangements are made. He denies any other adverse changes. He appears to be tolerating all of his current medication regimen well. Objective - Vital Signs Date Time Temp Pulse Resp B/P Pulse Ox O2 Delivery O2 Flow Rate FiO2 03/19/17 17:20 16 03/19/17 16:00 98.4 76 18 132/92 96 03/19/17 12:00 97.9 81 18 97/50 94 03/19/17 08:00 100.0 80 18 136/65 96 03/19/17 04:00 97.3 93 20 150/87 96 03/19/17 00:00 97.2 84 20 138/81 96 03/18/17 20:00 97.5 78 22 109/70 98 I/O 03/18/17 03/18/17 03/18/17 03/19/17 03/19/17 03/19/17 06:59 14:59 22:59 06:59 14:59 22:59 Intake Total 240 ml 720 ml 360 ml 240 ml 960 ml Output Total 1200 ml 1200 ml 675 ml 1050 ml 550 ml Balance -960 ml -480 ml -315 ml -810 ml 410 ml Intake Oral 240 ml 720 ml 360 ml 240 ml 960 ml Output Urine Total 1200 ml 1200 ml 675 ml 1050 ml 550 ml # Bowel Movements 0 1 1 Result Diagram: 03/18/17 1040 03/18/17 1040 Objective Remarks GENERAL: Alert and oriented. Appears comfortable. SKIN: Warm and dry. HEAD: Normocephalic. Atraumatic. EYES: No scleral icterus. No injection or drainage. NECK: Supple, trachea midline. No JVD or lymphadenopathy. CARDIOVASCULAR: Regular rate and rhythm without murmurs, gallops, or rubs. RESPIRATORY: Breath sounds equal bilaterally. No accessory muscle use. GASTROINTESTINAL: Abdomen is obese, soft, nontender and nondistended. MUSCULOSKELETAL: No cyanosis, or edema. The LUE is in an immobilization splint. Right BKA. BACK: Nontender without obvious deformity. No CVA tenderness. A/P Assessment and Plan ASSESSMENT 1. Open Reduction and Internal Fixation of the Left Humerus. 2. Acute Left Humerus Fracture with Angulation. 3. Hypomagnesemia-repleted. 4. Chronic Anemia secondary to chronic illness. 5. Hypertension. 6. Diabetes Mellitus, Type 2 with acute hypoglycemia. 7. Coronary Artery Disease. 8. Hyperlipidemia. 9. Peripheral Arterial Disease. 10. Peripheral Neuropathy. 11. Hypothyroidism. 12. Right Below Knee Amputation. 13. Remote Left Thalamic C. V. A. PLAN 1. Orthopedic final disposition is given. 2. Physical Therapy and Occupational Therapy continues. 3. Activity with Physical Therapy and Occupational Therapy will be as per Orthopedics. 4. Blood pressure and blood sugar control. 5. Sequential Compression Device for the left lower limb. 6. Discharge Planning for Rehab at a SNF. 7. DVT, PE and PUD prophylaxis. Sarkis Piedra MD Mar 19, 2017 19:31
[2017-03-19 20:45] VITALS: BP 111/56; PULSE 87; RESP 18; TEMP 98.4; O2SAT 95
[2017-03-19] MEDS: AMITRIPTYLINE HCL 50 MG TAB PO SCH (21:05)
[2017-03-19] MEDS ORDERED: TEMAZEPAM 15 MG CAP PO PRN (21:30)
[2017-03-20] MEDS: oxyCODONE/ACETAMINOPHEN 10 MG/325 MG TAB PO SCH ×6 (00:17→15:11)
[2017-03-20] MEDS: VANCOMYCIN INJ 1,000 MG in SODIUM CHLOR 0.9% 250 ML INJ 250 ML IV SCH ×2 (00:17→11:13)
[2017-03-20 00:55] VITALS: BP 114/61; PULSE 96; RESP 20; TEMP 97.4; O2SAT 92
[2017-03-20] MEDS: LEVOTHYROXINE SODIUM 50 MCG TAB PO SCH (04:49)
[2017-03-20] MEDS: INSULIN ASPART SUPPLEMENTAL SCALE SQ SCH ×3 (06:38→16:00)
[2017-03-20 08:00] VITALS: BP 133/74; PULSE 82; RESP 18; TEMP 97.3; O2SAT 97
[2017-03-20] MEDS ORDERED: FURO40TA PO (08:29)
[2017-03-20] MEDS ORDERED: REST15CA PO (08:36)
[2017-03-20] MEDS ORDERED: OXYC1TAB36 PO (08:36)
--- NOTE | 2017-03-20 08:42 | HHI.PR ---
Subjective Remarks There are no new adverse changes noted. He appears to be doing well. He is resting comfortably in the bed. Objective - Vital Signs Date Time Temp Pulse Resp B/P Pulse Ox O2 Delivery O2 Flow Rate FiO2 03/20/17 00:55 97.4 96 20 114/61 92 03/19/17 20:45 98.4 87 18 111/56 95 03/19/17 17:20 16 03/19/17 16:00 98.4 76 18 132/92 96 03/19/17 12:00 97.9 81 18 97/50 94 I/O 03/19/17 03/19/17 03/19/17 03/20/17 03/20/17 03/20/17 07:00 15:00 23:00 07:00 15:00 23:00 Intake Total 240 ml 960 ml 480 ml 240 ml Output Total 1050 ml 550 ml 350 ml Balance -810 ml 410 ml 480 ml -110 ml Intake Oral 240 ml 960 ml 480 ml 240 ml Output Urine Total 1050 ml 550 ml 350 ml # Bowel Movements 1 0 Result Diagram: 03/18/17 1040 03/18/17 1040 Objective Remarks GENERAL: Alert and appears comfortable. SKIN: Warm and dry. HEAD: Normocephalic. Atraumatic. EYES: No scleral icterus. No injection or drainage. NECK: Supple, trachea midline. No JVD or lymphadenopathy. CARDIOVASCULAR: Regular rate and rhythm without murmurs, gallops, or rubs. RESPIRATORY: Breath sounds equal bilaterally. No accessory muscle use. GASTROINTESTINAL: Abdomen soft, non-tender, nondistended. MUSCULOSKELETAL: Mild edema of the left lower limb. Right BKA. Immobilization splint of the LUE. BACK: Nontender without obvious deformity. No CVA tenderness. A/P Assessment and Plan ASSESSMENT 1. Open Reduction and Internal Fixation of the Left Humerus. 2. Acute Left Humerus Fracture with Angulation. 3. Hypomagnesemia-repleted. 4. Chronic Anemia secondary to chronic illness. 5. Hypertension. 6. Diabetes Mellitus, Type 2 with acute hypoglycemia. 7. Coronary Artery Disease. 8. Hyperlipidemia. 9. Peripheral Arterial Disease. 10. Peripheral Neuropathy. 11. Hypothyroidism. 12. Right Below Knee Amputation. 13. Remote Left Thalamic C. V. A. OVERALL, MEDICALLY STABLE PLAN 1. Orthopedic final disposition is given. 2. Physical Therapy and Occupational Therapy continues. 3. Activity with Physical Therapy and Occupational Therapy will be as per Orthopedics. 4. Blood pressure and blood sugar control. 5. Sequential Compression Device for the left lower limb. 6. Discharge Planning for Rehab at a SNF. 7. DVT, PE and PUD prophylaxis. OKAY TO DISCHARGE TO SNF FOR REHAB Sarkis Piedra MD Mar 20, 2017 08:42
[2017-03-20] MEDS: SODIUM CHLORIDE 0.9% FLUSH 10 ML FLUSH IV FLUSH SCH (09:00)
[2017-03-20] MEDS: LOSARTAN 50 MG TAB PO SCH (09:19)
[2017-03-20] MEDS: DOCUSATE SODIUM 100 MG CAP PO SCH (09:19)
[2017-03-20] MEDS: DOXAZOSIN MESYLATE 4 MG TAB PO SCH (09:19)
[2017-03-20] MEDS: DOCUSATE SODIUM 50 MG/SENNA 8.6 MG TAB PO SCH (09:19)
[2017-03-20] MEDS: PANTOPRAZOLE SOD 40 MG DELAYED RELEASE TAB PO SCH (09:19)
[2017-03-20] MEDS: GABAPENTIN 100 MG CAP PO SCH (09:19)
[2017-03-20] MEDS: FUROSEMIDE 40 MG TAB PO SCH (09:19)
[2017-03-20] MEDS: PRAVASTATIN SOD 40 MG TAB PO SCH (09:19)
[2017-03-20] MEDS: METOPROLOL TARTRATE 50 MG TAB PO SCH (09:19)
[2017-03-20] MEDS ORDERED: PNEUMOCOCCAL POLYVALENT INJ 25 MCG/0.5 ML SYR IM ONE (10:00)
[2017-03-20 12:00] VITALS: BP 123/74; PULSE 82; RESP 20; TEMP 97.7; O2SAT 94
[2017-03-20] MEDS: ENOXAPARIN SODIUM 30 MG/0.3 ML SYRINGE SQ SCH (15:07)
== END 2017-03-20 16:53 | DRG 493 ==
LOC: NEPC 10:36 → NEDA 12:21 → N06A 15:27
PROVIDERS: ADMIT Internal Medicine; ATTEND Internal Medicine
PROC: 01N60ZZ Release Radial Nerve, Open Approach (ICD-10-PCS; 2017-03-17)
PROC: 0PSG04Z Reposition Left Humeral Shaft with Internal Fixation Device, Open Approach (ICD-10-PCS; principal; 2017-03-17 11:54)
DX: S42.402A Unspecified fracture of lower end of left humerus, initial encounter for closed fracture (principal); I50.32 Chronic diastolic (congestive) heart failure; I11.0 Hypertensive heart disease with heart failure; E11.42 Type 2 diabetes mellitus with diabetic polyneuropathy; Z68.43 Body mass index [BMI] 50.0-59.9, adult; E11.51 Type 2 diabetes mellitus with diabetic peripheral angiopathy without gangrene; M19.90 Unspecified osteoarthritis, unspecified site; W01.0XXA Fall on same level from slipping, tripping and stumbling without subsequent striking against object, initial encounter; K21.9 Gastro-esophageal reflux disease without esophagitis; E11.319 Type 2 diabetes mellitus with unspecified diabetic retinopathy without macular edema; E78.5 Hyperlipidemia, unspecified; E66.9 Obesity, unspecified; E03.9 Hypothyroidism, unspecified; D63.8 Anemia in other chronic diseases classified elsewhere; E11.649 Type 2 diabetes mellitus with hypoglycemia without coma; I25.10 Atherosclerotic heart disease of native coronary artery without angina pectoris; M10.9 Gout, unspecified; G56.32 Lesion of radial nerve, left upper limb; E83.42 Hypomagnesemia; M54.5 Low back pain; Z23 Encounter for immunization; Y92.013 Bedroom of single-family (private) house as the place of occurrence of the external cause; Z89.511 Acquired absence of right leg below knee; Z87.11 Personal history of peptic ulcer disease; Z79.84 Long term (current) use of oral hypoglycemic drugs; Z86.73 Personal history of transient ischemic attack (TIA), and cerebral infarction without residual deficits
CPT/HCPCS: 71010; 73060; 73070; 76000; 76937; 80048; 80053; 81001; 82948; 83735; 85025; 85027; 85610; 86850; 86900; 86901; 87086; 87641; 90732; 93005; 94640; 96374; C1713; J0690; J1170; J1580; J1650; J1815; J1885; J2250; J2270; J2370; J2405; J3010; J3370; J3475; J7050; J7613

== ENCOUNTER 2017-04-03 00:59 | Emergency (ER) | payer MEDICARE, OTHER ==
[~2017-04-03] VITALS: Ht 165.1 cm; Wt 145.0 kg
[~2017-04-03 00:59] MED LIST changes: -FERR325T PO; -OXYC1TAB63 PO; +PERC5TAB12 PO; +REST15CA PO
[2017-04-03 01:01] VITALS: BP 139/62; PULSE 72; RESP 18; TEMP 98.3; O2SAT 98
[2017-04-03] MEDS ORDERED: MORPHINE SULFATE 8 MG/ML INJ IV PUSH ONE ×2 (01:15→03:15)
[2017-04-03] MEDS ORDERED: ONDANSETRON HCL 4 MG/2 ML VIAL IV PUSH ONE (01:15)
[2017-04-03] MEDS ORDERED: ONDANSETRON HCL 4 MG/2 ML VIAL IV ONE (01:30)
[2017-04-03] MEDS ORDERED: HYDROmorphone HCL PF 1 MG/ML VIAL IV ONE (01:30)
[2017-04-03] MEDS ORDERED: ZINC220T PO (01:32)
[2017-04-03] MEDS ORDERED: VITA250T3 PO (01:32)
[2017-04-03] MEDS ORDERED: MULT-65 PO (01:32)
[2017-04-03] MEDS ORDERED: FLEE10EN RECTAL (01:34)
--- NOTE | 2017-04-03 01:57 | RADRPT ---
EXAM DATE/TIME: 04/03/2017 01:34 [facility] COMPARISON: No previous studies available for comparison. INDICATIONS : Surgery three weeks ago to left humerus, increasing pain MEDICAL HISTORY : Diabetes mellitus type II. SURGICAL HISTORY : None. ENCOUNTER: Initial ACUITY: 3 weeks PAIN SCORE: 8/10 LOCATION: Left Humerus FINDINGS: There is plate and screw fixation of the distal humerus with near-anatomic alignment. Skin dominique pr esent. No complications identified. CONCLUSION: 1. Plate and screw fixation of a slightly comminuted fracture of the distal left humerus. Dion Shannon MD on April 03, 2017 at 1:55 Board Certified Radiologist. This report was verified electronically.
[2017-04-03 02:26] LABS: AUTOMATED NEUTROPHIL # 5.1 TH/MM3 (1.8-7.7); BASOPHIL # 0.1 TH/MM3 (0-0.2); BASOPHIL % 0.7 % (0.0-2.0); EOSINOPHIL # 0.3 TH/MM3 (0-0.4); EOSINOPHIL % 3.4 % (0.0-4.0); HEMO FLAGS DIFF FINAL; LYMPH % 23.1 % (9.0-44.0); LYMPHOCYTE # 1.8 TH/MM3 (1.0-4.8); MEAN CELL VOLUME 91.3 FL (80.0-100.0); MEAN CORPUSCULAR HEMOGLOBIN 30.5 PG (27.0-34.0); MEAN CORPUSCULAR HGB CONC 33.4 % (32.0-36.0); MONO % 8.7 % (0.0-8.0); NEUT % 64.1 % (16.0-70.0); PLATELET COUNT 422 TH/MM3 (150-450); RED BLOOD COUNT 3.29 MIL/MM3 (4.50-5.90); RED CELL DISTRIBUTION WIDTH 13.7 % (11.6-17.2); WHITE BLOOD COUNT 7.9 TH/MM3 (4.0-11.0)
[2017-04-03 02:38] LABS: BICARBONATE 24.7 MEQ/L (21.0-32.0); POTASSIUM 3.8 MEQ/L (3.5-5.1)
[2017-04-03 03:18] VITALS: BP 130/71; PULSE 67; RESP 16; O2SAT 95
--- NOTE | 2017-04-03 03:20 | PD ---
HPI . Left arm pain Chief Complaint: Pain: Acute or Chronic Time Seen by Provider: 01:11 Travel History International Travel<30 days: No Contact w/Intl Traveler<30days: No Traveled to known affect area: No History of Present Illness HPI This patient presents to us from a rehabilitation facility with the chief complaint of left arm pain. This patient is status post a left distal humeral fracture on March 16. He had ORIF on March 17. He was subsequently discharged back to his rehabilitation facility. He presents to us tonight complaining with increased pain in his left arm and feeling like the splint is too tight. He was reportedly treated with hydrocodone approximately 3-4 hours prior to presentation. Pain is severe. He believes that the pain is exacerbated by his blood. PFSH Past Medical History Arthritis: Yes Asthma: No Autoimmune Disease: No Blood Disorders: No Anxiety: No Depression: No Heart Rhythm Problems: No Cancer: No Cardiovascular Problems: No High Cholesterol: Yes Chemotherapy: No Chest Pain: Yes Congestive Heart Failure: Yes COPD: No Cerebrovascular Accident: No Diabetes: Yes Patient Takes Glucophage: No Diminished Hearing: No Endocrine: Yes Gastrointestinal Disorders: Yes (STOMACHE ULCER, GERD) GERD: Yes Glaucoma: No Genitourinary: No Headaches: No Hepatitis: No Hiatal Hernia: No Heparin Induced Thrombocytopen: No Hypertension: Yes Immune Disorder: No Implanted Vascular Access Dvce: No Kidney Stones: No Medical other: Yes (ARTHRITIS) Musculoskeletal: No Neurologic: No Psychiatric: No Reproductive: No Respiratory: No Migraines: No Myocardial Infarction: No Radiation Therapy: No Renal Failure: No Seizures: No Sickle Cell Disease: No Sleep Apnea: No Thyroid Disease: Yes Ulcer: Yes Past Surgical History Abdominal Surgery: Yes (CHOLECYSTECTOMY) AICD: No Appendectomy: No Arteriovenous Shunt: No Cardiac Surgery: No Cholecystectomy: Yes Ear Surgery: No Endocrine Surgery: No Eye Surgery: Yes (RIGHT EYE) Genitourinary Surgery: No Insulin Pump: No Joint Replacement: No Neurologic Surgery: No Oral Surgery: No Pacemaker: Yes Thoracic Surgery: No Other Surgery: Yes (bilat foot diabetic ulcer debridement) Social History Alcohol Use: Yes (12 BEERS DAILY) Tobacco Use: No Substance Use: No Allergies-Medications (Allergen,Severity, Reaction): Coded Allergies: *MDRO Multi-Drug Resistant Organism (Verified Allergy, Unknown, 04/03/17) MRSA PCR screen positive 03/17/17 Acinetobacter 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 aspirin (Unverified Adverse Reaction, Severe, 04/03/17) not allergic; takes Coumadin/ states aspirin causes fever Reported Meds & Prescriptions Reported Meds & Active Scripts Active Furosemide 40 Mg Tab 40 Mg PO DAILY Percocet (Oxycodone-Acetaminophen) 5-325 mg Tab 1 Tab PO Q4H PRN Plavix (Clopidogrel Bisulfate) 75 Mg Tab 75 Mg PO DAILY Reported Fleet Bisacodyl Enema (Bisacodyl) 10 Mg/37 Ml Enem 37 Ml RECTAL DAILY PRN Multi-Vitamin Daily (Multiple Vitamin) 1 Tab Tab 1 Tab PO DAILY Vitamin C (Ascorbic Acid) 250 Mg Tab 250 Mg PO BID Zinc Sulfate 220 Mg Tab 220 Mg PO DAILY Losartan (Losartan Potassium) 100 Mg Tab 100 Mg PO DAILY Omeprazole 20 Mg Tab 20 Mg PO DAILY Doxazosin (Doxazosin Mesylate) 4 Mg Tab 4 Mg PO DAILY Pioglitazone (Pioglitazone HCl) 30 Mg Tab 30 Mg PO DAILY Lovastatin 40 Mg Tab 40 Mg PO DAILY Amitriptyline (Amitriptyline HCl) 50 Mg Tab 50 Mg PO HS Amlodipine (Amlodipine Besylate) 10 Mg Tab 10 Mg PO DAILY Lisinopril 20 Mg Tab 20 Mg PO BID Temazepam 30 Mg Cap 30 Mg PO HS PRN Glipizide 10 Mg Tab 10 Mg PO DAILY Take 30 minutes before a meal Metformin (Metformin HCl) 500 Mg Tab 500 Mg PO BIDPC With meals Gabapentin 400 Mg Cap 100 Cap PO QID Levothyroxine (Levothyroxine Sodium) 50 Mcg Tab 50 Mcg PO DAILY Metoprolol Tartrate 50 Mg Tab 50 Mg PO DAILY Review of Systems Except as stated in HPI: all other systems reviewed are Neg General / Constitutional: No: Fever, Chills Musculoskeletal: Positive: Pain Physical Exam Narrative GENERAL: Awake and alert and in no acute distress. SKIN: Warm and dry. The skin of his left arm is warm to the touch. [place] are in place. The wounds appear to be well healed with no drainage. The skin is swollen. He does not seem to have any significant swelling distal to his splint and he has good capillary refill. HEAD: Atraumatic. Normocephalic. EYES: Pupils equal and round. NECK: Trachea midline. CARDIOVASCULAR: Regular rate and rhythm. RESPIRATORY: No accessory muscle use. MUSCULOSKELETAL: Left upper extremity was splinted. Splint was removed so that his arm to be examined. He is moving his left elbow. He has no deformity noted. NEUROLOGICAL: Awake and alert. No obvious cranial nerve deficits. Motor grossly within normal limits. Normal speech. PSYCHIATRIC: Appropriate mood and affect; insight and judgment normal. Data Data Last Documented VS Vital Signs Date Time Temp Pulse Resp B/P (MAP) Pulse Ox O2 Delivery O2 Flow Rate FiO2 04/03/17 01:01 98.3 72 18 139/62 (87) 98 Orders Orders Morphine Inj (Morphine Inj) (04/03/17 01:15) Ondansetron Inj (Zofran Inj) (04/03/17 01:15) [employer] Request For Service (04/03/17 01:15) Humerus (Min 2vws) (04/03/17 01:19) Complete Blood Count With Diff (04/03/17 01:27) Lactic Acid Sepsis Protocol (04/03/17 01:27) Blood Culture (04/03/17 01:27) Iv Access Insert/Monitor (04/03/17 01:27) Hydromorphone Pf Inj (Dilaudid Pf Inj) (04/03/17 01:30) Ondansetron Inj (Zofran Inj) (04/03/17 01:30) Basic Metabolic Panel (Bmp) (04/03/17 01:27) Fiberglass Splint Elbow Adult (04/03/17 ) Morphine Inj (Morphine Inj) (04/03/17 03:15) Labs Laboratory Tests Test 04/03/17 02:00 04/03/17 02:05 White Blood Count 7.9 TH/MM3 Red Blood Count 3.29 MIL/MM3 Hemoglobin 10.0 GM/DL Hematocrit 30.0 % Mean Corpuscular Volume 91.3 FL Mean Corpuscular Hemoglobin 30.5 PG Mean Corpuscular Hemoglobin Concent 33.4 % Red Cell Distribution Width 13.7 % Platelet Count 422 TH/MM3 Mean Platelet Volume 7.3 FL Neutrophils (%) (Auto) 64.1 % Lymphocytes (%) (Auto) 23.1 % Monocytes (%) (Auto) 8.7 % Eosinophils (%) (Auto) 3.4 % Basophils (%) (Auto) 0.7 % Neutrophils # (Auto) 5.1 TH/MM3 Lymphocytes # (Auto) 1.8 TH/MM3 Monocytes # (Auto) 0.7 TH/MM3 Eosinophils # (Auto) 0.3 TH/MM3 Basophils # (Auto) 0.1 TH/MM3 CBC Comment DIFF FINAL Differential Comment Blood Urea Nitrogen 22 MG/DL Creatinine 1.15 MG/DL Random Glucose 131 MG/DL Calcium Level 8.8 MG/DL Sodium Level 134 MEQ/L Potassium Level 3.8 MEQ/L Chloride Level 100 MEQ/L Carbon Dioxide Level 24.7 MEQ/L Anion Gap 9 MEQ/L Estimat Glomerular Filtration Rate 78 ML/MIN Lactic Acid Level 1.5 mmol/L MDM Medical Decision Making Medical Screen Exam Complete: Yes Emergency Medical Condition: Yes Medical Record Reviewed: Yes (patient is status post fall on 03/16 with a resultant left distal humeral fracture. This was repaired on 03/17.) Differential Diagnosis My differential diagnosis of a swollen extremity includes but is not limited to superficial phlebitis, DVT, cellulitis, arthritis, fluid and electrolyte problem Narrative Course Patient presents complaining with increased pain in his left arm status post a humeral fracture. The skin was swollen and warm to the touch. Therefore, a CBC and blood cultures were done. I have also repeated the x-ray. CBC Diagram 04/03/17 02:00 Left humerus x-ray shows hardware in place. The fracture is appropriately aligned. The orthotics technician has reapplied a splint. The dominique have also been removed. Diagnosis Primary Impression: Pain Additional Impression: Closed left humeral fracture Qualified Codes: S42.402D - Unspecified fracture of lower end of left humerus , subsequent encounter for fracture with routine healing Patient Instructions: Narcotic given in the ED Additional Instructions: Contact his orthopedic surgeon if he continues to complain with increased pain. Disposition: 01 DISCHARGE HOME Condition: Stable Leann Mcneill MD Apr 03, 2017 03:20
[2017-04-03 07:37] VITALS: BP 140/78; PULSE 66; RESP 18; TEMP 98.6; O2SAT 99
== END 2017-04-03 12:09 | disposition home or self-care (01) ==
LOC: NEPC 00:59 → NEDAMB 12:09
DX: S42.402A Unspecified fracture of lower end of left humerus, initial encounter for closed fracture (principal); Z79.01 Long term (current) use of anticoagulants; X58.XXXA Exposure to other specified factors, initial encounter
CPT/HCPCS: 29105; 73060; 80048; 83605; 85025; 87040; 96374; 96375; 99284; J2270; J2405

== ENCOUNTER 2017-09-29 18:48 | Inpatient (IN) | payer MEDICARE, OTHER ==
[~2017-09-29] VITALS: Ht 167.6 cm; Wt 5.0 kg
[2017-09-29] VITALS (8 sets, daily range): BP systolic 79–129; BP diastolic 54–70; PULSE 53–58; RESP 18–30; TEMP 97.7; O2SAT 97–100
[~2017-09-29 18:48] MED LIST changes: +FLEE10EN RECTAL; +MULT-65 PO; -OMEP20TA PO; +OMEP20TA93 PO; -OXYC1TAB36 PO; -REST15CA PO; +VITA250T3 PO; +ZINC220T PO
[2017-09-29] MEDS ORDERED: DEXTROSE 50% IN WATER 50 ML SYRINGE ONE (18:56)
--- NOTE | 2017-09-29 19:28 | PD ---
HPI Chief Complaint: Altered Mental Status Time Seen by Provider: 19:17 Travel History International Travel<30 days: No Contact w/Intl Traveler<30days: No Traveled to known affect area: No History of Present Illness HPI 62 y/o male presents with last seen normal by family at about 2 PM. When his daughter went to check on him at 5 he was not acting himself and so she brought him here. She tried to get him to come by ambulance but he refused that. She states she had family help him in the car. In triage they checked his sugar and it was 40 and he was brought straight back. Patient cannot provide me any history initially. History is significantly limited. PFSH Past Medical History Narrative Medical My records and daughter Arthritis: Yes Asthma: No Autoimmune Disease: No Blood Disorders: No Anxiety: No Depression: No Heart Rhythm Problems: No Cancer: No Cardiovascular Problems: Yes High Cholesterol: Yes Chemotherapy: No Chest Pain: Yes Congestive Heart Failure: Yes COPD: No Cerebrovascular Accident: Yes Diabetes: Yes Patient Takes Glucophage: Yes Diminished Hearing: No Endocrine: Yes Gastrointestinal Disorders: Yes (STOMACHE ULCER, GERD) GERD: Yes Glaucoma: No Genitourinary: No Headaches: No Hepatitis: No Hiatal Hernia: No Heparin Induced Thrombocytopen: No Hypertension: Yes Immune Disorder: No Implanted Vascular Access Dvce: No Kidney Stones: No Medical other: Yes (ARTHRITIS) Musculoskeletal: No Neurologic: No Psychiatric: No Reproductive: No Respiratory: Yes Migraines: No Myocardial Infarction: No Radiation Therapy: No Renal Failure: No Seizures: No Sickle Cell Disease: No Sleep Apnea: No Thyroid Disease: Yes Ulcer: Yes Past Surgical History Narrative Surgical By records and daughter Abdominal Surgery: Yes (CHOLECYSTECTOMY) AICD: No Appendectomy: No Arteriovenous Shunt: No Cardiac Surgery: No Cholecystectomy: Yes Ear Surgery: No Endocrine Surgery: No Eye Surgery: Yes (RIGHT EYE) Genitourinary Surgery: No Insulin Pump: No Joint Replacement: No Neurologic Surgery: No Oral Surgery: No Pacemaker: Yes Thoracic Surgery: No Other Surgery: Yes (bilat foot diabetic ulcer debridement) Social History Alcohol Use: No Tobacco Use: No Substance Use: No Allergies-Medications (Allergen,Severity, Reaction): Coded Allergies: *MDRO Multi-Drug Resistant Organism (Verified Allergy, Unknown, 04/03/17) MRSA PCR screen positive 03/17/17 Acinetobacter 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 aspirin (Unverified Adverse Reaction, Severe, 04/03/17) not allergic; takes Coumadin/ states aspirin causes fever Reported Meds & Prescriptions Reported Meds & Active Scripts Active Furosemide 40 Mg Tab 40 Mg PO DAILY Percocet (Oxycodone-Acetaminophen) 5-325 mg Tab 1 Tab PO Q4H PRN Plavix (Clopidogrel Bisulfate) 75 Mg Tab 75 Mg PO DAILY Reported Multi-Vitamin Daily (Multiple Vitamin) 1 Tab Tab 1 Tab PO DAILY Zinc Sulfate 220 Mg Tab 220 Mg PO DAILY Losartan (Losartan Potassium) 100 Mg Tab 100 Mg PO DAILY Omeprazole 20 Mg Tab 20 Mg PO DAILY Doxazosin (Doxazosin Mesylate) 4 Mg Tab 4 Mg PO DAILY Pioglitazone (Pioglitazone HCl) 30 Mg Tab 30 Mg PO DAILY Lovastatin 40 Mg Tab 40 Mg PO DAILY Amitriptyline (Amitriptyline HCl) 50 Mg Tab 50 Mg PO HS Amlodipine (Amlodipine Besylate) 10 Mg Tab 10 Mg PO DAILY Lisinopril 20 Mg Tab 20 Mg PO BID Temazepam 30 Mg Cap 30 Mg PO HS PRN Glipizide 10 Mg Tab 10 Mg PO DAILY Take 30 minutes before a meal Metformin (Metformin HCl) 500 Mg Tab 500 Mg PO BIDPC With meals Gabapentin 400 Mg Cap 100 Cap PO QID Levothyroxine (Levothyroxine Sodium) 50 Mcg Tab 50 Mcg PO DAILY Metoprolol Tartrate 50 Mg Tab 50 Mg PO DAILY Review of Systems ROS Limitations: Clinical Condition Physical Exam Exam Limitations: Clinical Condition Narrative GENERAL: 62-year-old who appears altered SKIN: Focused skin assessment warm/dry. Abrasions to left wrist HEAD: Atraumatic. Normocephalic. EYES: Pupils equal and round. No scleral icterus. No injection or drainage. ENT: No nasal bleeding or discharge. Mucous membranes pink and moist. NECK: Trachea midline. No JVD. No midline tenderness after glucose given CARDIOVASCULAR: Bradycardic rate and regular rhythm. RESPIRATORY: No accessory muscle use. No increased effort GASTROINTESTINAL: Abdomen soft, non-tender, nondistended. MUSCULOSKELETAL: No obvious deformities. Pain with palpation of left wrist and right knee after glucose given, no pain with other joints , neurovascularly intact, no lacerations over, compartments soft. NEUROLOGICAL: Unresponsive, mumbled speech, moves extremities Data Data Last Documented VS Vital Signs Date Time Temp Pulse Resp B/P (MAP) Pulse Ox O2 Delivery O2 Flow Rate FiO2 2/16/18 21:28 58 20 106/69 (81) 98 Room Air 09/29/17 18:58 97.7 Orders Orders Dextrose 50% In Cheri (Syr) Inj (D50w (Syr (09/29/17 18:56) Electrocardiogram (09/29/17 19:17) Complete Blood Count With Diff (09/29/17 19:17) Comprehensive Metabolic Panel (09/29/17 19:17) Prothrombin Time / Inr (Pt) (09/29/17 19:17) Act Partial Throm Time (Ptt) (09/29/17 19:17) Lactic Acid Sepsis Protocol (09/29/17 19:17) Magnesium (Mg) (09/29/17 19:17) Phosphorus (Po4) (09/29/17 19:17) Ckmb (Isoenzyme) Profile (09/29/17 19:17) Troponin I (09/29/17 19:17) Urinalysis - C+S If Indicated (09/29/17 19:17) Chest, Single Ap (09/29/17 19:17) Blood Glucose (09/29/17 19:17) Ecg Monitoring (09/29/17 19:17) Iv Access Insert/Monitor (09/29/17 19:17) Oximetry (09/29/17 19:17) Ct Brain W/O Iv Contrast(Rout) (09/29/17 19:17) Wrist, Complete (Klh2uip) (09/29/17 ) Knee, Complete (4vws) (09/29/17 ) Dextrose 50% In Cheri (Syr) Inj (D50w (Syr (09/29/17 19:30) Sodium Chlorid 0.9% 500 Ml Inj (Ns 500 M (09/29/17 19:30) Blood Culture (09/29/17 19:21) Blood Glucose (09/29/17 19:28) CKMB (09/29/17 19:20) CKMB% (09/29/17 19:20) Sodium Chlorid 0.9% 500 Ml Inj (Ns 500 M (09/29/17 21:00) Dextrose 50% In Cheri (Syr) Inj (D50w (Syr (09/29/17 21:30) Alcohol (Ethanol) (09/29/17 21:40) Admit Order (Ed Use Only) (09/29/17 21:41) Labs Laboratory Tests Test 09/29/17 19:20 09/29/17 19:45 White Blood Count 5.7 TH/MM3 Red Blood Count 3.65 MIL/MM3 Hemoglobin 10.9 GM/DL Hematocrit 33.4 % Mean Corpuscular Volume 91.5 FL Mean Corpuscular Hemoglobin 29.8 PG Mean Corpuscular Hemoglobin Concent 32.6 % Red Cell Distribution Width 15.0 % Platelet Count 223 TH/MM3 Mean Platelet Volume 8.4 FL Neutrophils (%) (Auto) 71.1 % Lymphocytes (%) (Auto) 20.2 % Monocytes (%) (Auto) 6.1 % Eosinophils (%) (Auto) 2.2 % Basophils (%) (Auto) 0.4 % Neutrophils # (Auto) 4.0 TH/MM3 Lymphocytes # (Auto) 1.1 TH/MM3 Monocytes # (Auto) 0.3 TH/MM3 Eosinophils # (Auto) 0.1 TH/MM3 Basophils # (Auto) 0.0 TH/MM3 CBC Comment DIFF FINAL Differential Comment Prothrombin Time 10.4 SEC Prothromb Time International Ratio 1.0 RATIO Activated Partial Thromboplast Time 27.7 SEC Blood Urea Nitrogen 25 MG/DL Creatinine 1.32 MG/DL Random Glucose 26 MG/DL Total Protein 7.3 GM/DL Albumin 3.3 GM/DL Calcium Level 8.4 MG/DL Phosphorus Level 3.9 MG/DL Magnesium Level 1.9 MG/DL Alkaline Phosphatase 90 U/L Aspartate Amino Transf (AST/SGOT) 19 U/L Alanine Aminotransferase (ALT/SGPT) 13 U/L Total Bilirubin 0.3 MG/DL Sodium Level 134 MEQ/L Potassium Level 5.0 MEQ/L Chloride Level 103 MEQ/L Carbon Dioxide Level 21.4 MEQ/L Anion Gap 10 MEQ/L Estimat Glomerular Filtration Rate 66 ML/MIN Total Creatine Kinase 119 U/L Creatine Kinase MB 1.5 NG/ML Troponin I LESS THAN 0.02 NG/ML Lactic Acid Level 2.0 mmol/L MDM Medical Decision Making Medical Screen Exam Complete: Yes Emergency Medical Condition: Yes Medical Record Reviewed: Yes (Past history confirmed) Interpretation(s) CBC & BMP Diagram 09/29/17 19:20 Total Protein 7.3, Albumin 3.3 L, Calcium Level 8.4 L, Phosphorus Level 3.9, Magnesium Level 1.9, Alkaline Phosphatase 90, Aspartate Amino Transf (AST/SGOT) 19, Alanine Aminotransferase (ALT/SGPT) 13, Total Bilirubin 0.3 Last [address] [id number]/29/[id number] Signed Impressions: Service Date/Time: Friday, September 29, 2017 20:05 - CONCLUSION: 1. No acute intracranial abnormalities. Dion Shannon MD Chest X-Ray [id number]/29/[id number] Signed Impressions: Service Date/Time: Friday, September 29, 2017 19:50 - CONCLUSION: 1. Mild basilar dependent atelectasis. There is a loop recorder on the left. No effusion or pneumothorax. Dion Shannon MD Wrist X-Ray 09/29/17 0000 Signed Impressions: Service Date/Time: Friday, September 29, 2017 19:53 - CONCLUSION: 1. No acute fracture identified. There is soft tissue swelling present in the left wrist. Dion Shannon MD Knee X-Ray 09/29/17 0000 Signed Impressions: Service Date/Time: Friday, September 29, 2017 19:56 - CONCLUSION: 1. Below the knee amputation on the right. Osteopenia. No acute bony abnormality. Dion Shannon MD Differential Diagnosis Fracture, bleed, hypoglycemia, renal failure, infection, cardiac Narrative Course Patient was given an amp of D50 and he started to awaken and talk. He states that he did not eat but he took his medicines. He notes pain to his left wrist and right knee. Will repeat sugar and check blood work, imaging and he will need to be admitted to the hospital for further care. Patient is starting to drop his blood pressure so we will dose with IV fluids and reevaluate 847 patient's sugar is 50, will give food and orange juice and admit for further care 923 glucose 41, will give 1/2 amp of d50 and recheck and have continue to eat Physician Communication Physician Communication dr rehman agrees to admit and requests alcohol level added on Diagnosis Primary Impression: Hypoglycemia Additional Impression: Fall Qualified Codes: W19.XXXA - Unspecified fall, initial encounter Admitting Information Admitting Physician Requests: Admit Elizabeth Anders MD Sep 29, 2017 19:28
[2017-09-29] MEDS ORDERED: SODIUM CHLORID 0.9% 500 ML INJ 500 ML IV ONE ×2 (19:30→21:00)
[2017-09-29] MEDS ORDERED: DEXTROSE 50% IN WATER 50 ML SYRINGE IV PUSH ONE ×2 (19:30→21:30)
[2017-09-29 20:12] LABS: BASOPHIL % 0.4 % (0.0-2.0); EOSINOPHIL # 0.1 TH/MM3 (0-0.4); EOSINOPHIL % 2.2 % (0.0-4.0); HEMATOCRIT 33.4 % (39.0-51.0); HEMOGLOBIN 10.9 GM/DL (13.0-17.0); LYMPH % 20.2 % (9.0-44.0); LYMPHOCYTE # 1.1 TH/MM3 (1.0-4.8); MEAN CELL VOLUME 91.5 FL (80.0-100.0); MEAN CORPUSCULAR HEMOGLOBIN 29.8 PG (27.0-34.0); MEAN CORPUSCULAR HGB CONC 32.6 % (32.0-36.0); MEAN PLATELET VOLUME 8.4 FL (7.0-11.0); MONO % 6.1 % (0.0-8.0); MONOCYTE # 0.3 TH/MM3 (0-0.9); NEUT % 71.1 % (16.0-70.0); PLATELET COUNT 223 TH/MM3 (150-450); RED BLOOD COUNT 3.65 MIL/MM3 (4.50-5.90); WHITE BLOOD COUNT 5.7 TH/MM3 (4.0-11.0)
[2017-09-29 20:20] LABS: PROTHROMBIN TIME - PATIENT 10.4 SEC (9.8-11.6)
--- NOTE | 2017-09-29 20:30 | RADRPT ---
EXAM DATE/TIME: 09/29/2017 20:05 [facility] COMPARISON: No previous studies available for comparison. INDICATIONS : Head pain due to fall. RADIATION DOSE: 40.86 CTDIvol (mGy) MEDICAL HISTORY : Cardiovascular disease. Hypertension. Congestive heart failure.Diabetes SURGICAL HISTORY : Cholecystectomy. Pacemaker.Below the knee amputation. ENCOUNTER: Initial ACUITY: 1 day PAIN SCALE: 5/10 LOCATION: Bilateral cranial TECHNIQUE: Multiple contiguous axial images were obtained of the head. Using automated exposure control and adj ustment of the mA and/or kV according to patient size, radiation dose was kept as low as reasonably a chievable to obtain optimal diagnostic quality images. DICOM format image data is available electro nically for review and comparison. FINDINGS: CEREBRUM: The ventricles are normal for age. No evidence of midline shift, mass lesion, hemorrhage or acute in farction. No extra-axial fluid collections are seen. POSTERIOR FOSSA: The cerebellum and brainstem are intact. The 4th ventricle is midline. The cerebellopontine angle i s unremarkable. EXTRACRANIAL: The visualized portion of the orbits is intact. SKULL: The calvaria is intact. No evidence of skull fracture. CONCLUSION: 1. No acute intracranial abnormalities. Dion Shannon MD on September 29, 2017 at 20:27 Board Certified Radiologist. This report was verified electronically.
--- NOTE | 2017-09-29 20:32 | RADRPT ---
EXAM DATE/TIME: 09/29/2017 19:50 [facility] COMPARISON: CHEST SINGLE AP, March 16, 2017, 12:29. INDICATIONS : Fall today. Chest pain. MEDICAL HISTORY : Diabetes mellitus type II. Congestive heart failure. Hypercholesterolemia. Hypertension. SURGICAL HISTORY : Cholecystectomy. Left foot first digit amputation. Below the knee right amputation. ENCOUNTER: Initial ACUITY: 1 day PAIN SCORE: 8/10 LOCATION: Bilateral chest FINDINGS: A single view of the chest demonstrates the lungs to be symmetrically aerated without evidence of mas s, infiltrate or effusion. Mild basilar dependent atelectasis. The cardiomediastinal contours are unr emarkable. Osseous structures are intact. CONCLUSION: 1. Mild basilar dependent atelectasis. There is a loop recorder on the left. No effusion or pneumotho rax. Dion Shannon MD on September 29, 2017 at 20:29 Board Certified Radiologist. This report was verified electronically.
[2017-09-29 20:33] LABS: ALBUMIN 3.3 GM/DL (3.4-5.0); AST (GOT) 19 U/L (15-37); BICARBONATE 21.4 MEQ/L (21.0-32.0); BLOOD UREA NITROGEN 25 MG/DL (7-18); CALCIUM 8.4 MG/DL (8.5-10.1); CHLORIDE 103 MEQ/L (98-107); CREATININE 1.32 MG/DL (0.60-1.30); GLOMERULAR FILTRATION RATE 66 ML/MIN (>89); MAGNESIUM 1.9 MG/DL (1.5-2.5); SODIUM (NA) 134 MEQ/L (136-145)
--- NOTE | 2017-09-29 20:33 | RADRPT ---
EXAM DATE/TIME: 09/29/2017 19:53 [facility] COMPARISON: No previous studies available for comparison. INDICATIONS : Left medial wrist pain after fall today. MEDICAL HISTORY : Diabetes mellitus type II. Congestive heart failure. Hypercholesterolemia. Hypertension. SURGICAL HISTORY : Cholecystectomy. Left foot first digit amputation. Right lower leg amputation. ENCOUNTER: Initial ACUITY: 1 day PAIN SCORE: 8/10 LOCATION: Left medial wrist. FINDINGS: Three view examination of the left wrist demonstrates no acute fracture or dislocation. Mild to moder ate degenerative disc disease. CONCLUSION: 1. No acute fracture identified. There is soft tissue swelling present in the left wrist. Dion Shannon MD on September 29, 2017 at 20:30 Board Certified Radiologist. This report was verified electronically.
--- NOTE | 2017-09-29 20:35 | RADRPT ---
EXAM DATE/TIME: 09/29/2017 19:56 [place] COMPARISON: No previous studies available for comparison. INDICATIONS : Right knee pain after fall today. MEDICAL HISTORY : Diabetes mellitus type II. Congestive heart failure. Hypercholesterolemia. Hypertension. SURGICAL HISTORY : Cholecystectomy. Left foot first digit amputation. Right below the knee amputation. ENCOUNTER: Initial ACUITY: 1 day PAIN SCORE: 8/10 LOCATION: Right knee. FINDINGS: Four view examination of the right knee demonstrates amputation below the knee. Mild to moderate oste oarthritis of the knee joint effusion. Bones are osteopenic. CONCLUSION: 1. Below the knee amputation on the right. Osteopenia. No acute bony abnormality. Dion Shannon MD on September 29, 2017 at 20:32 Board Certified Radiologist. This report was verified electronically.
[2017-09-29 20:40] LABS: GLUCOSE,RANDOM 26 MG/DL (74-106)
[2017-09-29 20:42] LABS: ALKALINE PHOSPHATASE 90 U/L (45-117); ALT (GPT) 13 U/L (12-78); PHOSPHORUS 3.9 MG/DL (2.5-4.9); TOTAL BILIRUBIN ADULT 0.3 MG/DL (0.2-1.0); TOTAL PROTEIN 7.3 GM/DL (6.4-8.2); TROPONIN I LESS THAN 0.02 NG/ML (0.02-0.05)
[2017-09-29] MEDS ORDERED: SODIUM CHLORIDE 0.9% FLUSH 10 ML FLUSH IV FLUSH PRN (22:15)
[2017-09-29] MEDS ORDERED: NALOXONE HCL 0.4 MG/ML AMP IV PUSH PRN (22:15)
[2017-09-29] MEDS ORDERED: ACETAMINOPHEN 325 MG TAB PO PRN (22:15)
[2017-09-29] MEDS ORDERED: LACTULOSE SYRUP 20 GM/30 ML CUP PO PRN (22:15)
[2017-09-29] MEDS ORDERED: ONDANSETRON HCL 4 MG/2 ML VIAL IVP PRN (22:15)
[2017-09-29] MEDS ORDERED: SENNOSIDES 8.6 MG TAB PO PRN (22:15)
[2017-09-29] MEDS ORDERED: DEXTROSE 50% IN WATER 50 ML VIAL(D50) IV PUSH PRN (22:15)
[2017-09-29] MEDS ORDERED: GLUCAGON 1 MG/ML VIAL OTHER PRN (22:15)
[2017-09-29] MEDS ORDERED: MAGNESIUM HYDROXIDE SUSP 30 ML CUP PO PRN (22:15)
[2017-09-29] MEDS ORDERED: BISACODYL 10 MG SUPP RECTAL PRN (22:15)
--- NOTE | 2017-09-29 22:31 | HHI.HP ---
History of Present Illness Service INTERNAL MEDICINE Primary Care Physician SARKIS PIEDRA MD Admission Diagnosis RECURRENT HYPOGLYCEMIA Diagnoses: History of Present Illness This patient is a 62 year old male with longstanding history of Diabetes Mellitus, Type 2. He presents today with a report that he took his diabetic medication and did not eat for quite a while. He became lethargic and had some confusion. He was not rational according to his daughter. Due to the abnormal presentation, he was transported to the [facility] for evaluation. He was found with a severely low blood sugar of 26. The treatment of intravenous glucose did not raise the blood sugar and sustain it. He is therefore admitted to the hospital for further assessment and treatment Review of Systems ROS Limitations: Altered Mental Status, Poor Historian Psychiatric: COMPLAINS OF: Confusion Past Family Social History Allergies: Coded Allergies: *MDRO Multi-Drug Resistant Organism (Verified Allergy, Unknown, 04/03/17) MRSA PCR screen positive 03/17/17 Acinetobacter 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 aspirin (Unverified Adverse Reaction, Severe, 04/03/17) not allergic; takes Coumadin/ states aspirin causes fever Past Medical History 1. Hypertension. 2. Hyperlipidemia. 3. Diabetes Mellitus, Type 2. 4. Diabetic Retinopathy. 5. Diabetic Neuropathy. 6. Peripheral Arterial Disease. 7. Osteoarthritis. 8. Chronic Low Back Syndrome. 9. Hypothyroidism. 10. Chronic Diastolic Congestive Heart Failure. 11. Gastroesophageal Reflux Disease. 12. Osteoarthritis. 13. Left Thalamic Cerebral Vascular Accident. 13. Gout. 14. Chronic Anemia secondary to chronic illness. 15. Chronic Peptic Ulcer Disease. 16. Obesity. 13. Osteomyelitis of Left Great Toe. 14. Fracture of the Left Elbow. Past Surgical History 1. Cholecystectomy---2008. 2. Abscess Drainage of the Right Foot---2008. 3. Amputation of the Left Great Toe---2011. 4. Amputation of Toes of the Right Foot---2013. 5. Right Below Knee Amputation---2013. 6. Cardiac Loop Recorder placement---2015. 7. ORIF of the Left Elbow. Family History There is a personal family history of Diabetes Mellitus, Type 2, Heart Disease and Hypertension in several family members. Social History He is and lives at home with his . He is a nonsmoker. He drinks alcohol excessively at times. He still averages about 1-2 six packs of beers two to three times a week. There is no history of any recreational drug use. Physical Exam Vital Signs Vital Signs Date Time Temp Pulse Resp B/P (MAP) Pulse Ox O2 Delivery O2 Flow Rate FiO2 09/29/17 21:28 58 20 106/69 (81) 98 Room Air 09/29/17 20:53 58 20 111/58 (75) 99 Room Air 09/29/17 20:29 54 20 98/55 (69) 97 Room Air 09/29/17 19:48 55 20 104/59 (74) 98 Room Air 09/29/17 19:24 53 20 95/54 (68) 98 09/29/17 19:20 53 18 79/54 (62) 99 09/29/17 18:58 97.7 55 30 114/63 (80) 100 Physical Exam GENERAL: This is a well-nourished, well-developed patient, in no apparent distress. He does show some mental confusion at times. SKIN: No rashes, ecchymoses or lesions. Warm and dry. He has a receding hairline. HEAD: Atraumatic. Normocephalic. No temporal or scalp tenderness. EYES: Pupils equal round and reactive. Extraocular motions intact. No scleral icterus. No injection or drainage. ENT: Nose without bleeding, purulent drainage or septal hematoma. Throat without erythema, tonsillar hypertrophy or exudate. Uvula midline. Airway patent. NECK: Trachea midline. No JVD or lymphadenopathy. Supple, nontender, no meningeal signs. CARDIOVASCULAR: Regular rate and rhythm without murmurs, gallops, or rubs. RESPIRATORY: Clear to auscultation. Breath sounds equal bilaterally. No wheezes , rales, or rhonchi. GASTROINTESTINAL: Abdomen is soft, non-tender or nondistended. He does have obese character. No hepato-splenomegaly, or palpable masses. No guarding. MUSCULOSKELETAL: Extremities without clubbing or cyanosis. There is mild edema for the left lower limb. No joint tenderness, effusion, or edema noted. No calf tenderness. There is a right below knee amputation. NEUROLOGICAL: Awake and alert. Cranial nerves II through XII intact. Motor is grossly within normal limits. There is decreased sensory for the left lower extremity to the level above the left ankle. Five out of 5 muscle strength in all muscle groups. Normal speech. Laboratory Laboratory Tests Test 09/29/17 19:20 09/29/17 19:45 White Blood Count 5.7 Red Blood Count 3.65 Hemoglobin 10.9 Hematocrit 33.4 Mean Corpuscular Volume 91.5 Mean Corpuscular Hemoglobin 29.8 Mean Corpuscular Hemoglobin Concent 32.6 Red Cell Distribution Width 15.0 Platelet Count 223 Mean Platelet Volume 8.4 Neutrophils (%) (Auto) 71.1 Lymphocytes (%) (Auto) 20.2 Monocytes (%) (Auto) 6.1 Eosinophils (%) (Auto) 2.2 Basophils (%) (Auto) 0.4 Neutrophils # (Auto) 4.0 Lymphocytes # (Auto) 1.1 Monocytes # (Auto) 0.3 Eosinophils # (Auto) 0.1 Basophils # (Auto) 0.0 CBC Comment DIFF FINAL Differential Comment Prothrombin Time 10.4 Prothromb Time International Ratio 1.0 Activated Partial Thromboplast Time 27.7 Blood Urea Nitrogen 25 Creatinine 1.32 Random Glucose 26 Total Protein 7.3 Albumin 3.3 Calcium Level 8.4 Phosphorus Level 3.9 Magnesium Level 1.9 Alkaline Phosphatase 90 Aspartate Amino Transf (AST/SGOT) 19 Alanine Aminotransferase (ALT/SGPT) 13 Total Bilirubin 0.3 Sodium Level 134 Potassium Level 5.0 Chloride Level 103 Carbon Dioxide Level 21.4 Anion Gap 10 Estimat Glomerular Filtration Rate 66 Total Creatine Kinase 119 Creatine Kinase MB 1.5 Troponin I LESS THAN 0.02 Lactic Acid Level 2.0 Date/Time Source Procedure Growth Status 09/29/17 19:45 Blood Peripheral Aerobic Blood Culture Pending Received 09/29/17 19:45 Blood Peripheral Anaerobic Blood Culture Pending Received Result Diagram: 09/29/17191909/29/171919 Caprini VTE Risk Assessment Caprini VTE Risk Assessment: Mod/High Risk (score >= 2) Caprini Risk Assessment Model Point Value = 1 Point Value = 2 Point Value = 3 Point Value = 5 Age 41-60 Minor surgery BMI > 25 kg/m2 Swollen legs Varicose veins or History of unexplained or recurrent spontaneous Oral contraceptives or hormone replacement Sepsis (< 1 month) Serious lung disease, including pneumonia (< 1 month) Abnormal pulmonary function Acute myocardial infarction Congestive heart failure (< 1 month) History of inflammatory bowel disease Medical patient at bed rest Age 61-74 Arthroscopic surgery Major open surgery (> 45 min) Laparoscopic surgery (> 45 min) Malignancy Confined to bed (> 72 hours) Immobilizing plaster cast Central venous access Age >= 75 History of VTE Family history of VTE Factor V Leiden Prothrombin [id number] Lupus anticoagulant Anticardiolipin antibodies Elevated serum homocysteine Heparin-induced thrombocytopenia Other congenital or acquired thrombophilia Stroke (< 1 month) Elective arthroplasty Hip, pelvis, or leg fracture Acute spinal cord injury (< 1 month) Prophylaxis Regimen Total Risk Factor Score Risk Level Prophylaxis Regimen 0-1 Low Early ambulation 2 Moderate Order ONE of the following: *Sequential Compression Device (SCD) *Heparin 5000 units SQ BID 3-4 Higher Order ONE of the following medications: *Heparin 5000 units SQ TID *Enoxaparin/Lovenox 40 mg SQ daily (WT < 150 kg, CrCl > 30 mL/min) *Enoxaparin/Lovenox 30 mg SQ daily (WT < 150 kg, CrCl > 10-29 mL/min) *Enoxaparin/Lovenox 30 mg SQ BID (WT < 150 kg, CrCl > 30 mL/min) AND/OR *Sequential Compression Device (SCD) 5 or more Highest Order ONE of the following medications: *Heparin 5000 units SQ TID (Preferred with Epidurals) *Enoxaparin/Lovenox 40 mg SQ daily (WT < 150 kg, CrCl > 30 mL/min) *Enoxaparin/Lovenox 30 mg SQ daily (WT < 150 kg, CrCl > 10-29 mL/min) *Enoxaparin/Lovenox 30 mg SQ BID (WT < 150 kg, CrCl > 30 mL/min) AND *Sequential Compression Device (SCD) Assessment and Plan Assessment and Plan ASSESSMENT 1. Acute Recurrent Hypoglycemic Episodes. 2. Acute Metabolic Encephalopathy. 3. Diabetes Mellitus, Type 2. 4. Hypertension. 5. Hyperlipidemia. 6. Coronary Artery Disease. 7. Peripheral Arterial Disease. 8. Peripheral Neuropathy. 9. Hypothyroidism. 10. Right Below Knee Amputation. 11. Remote Left Thalamic C. V. A. 12. Remote ORIF of Left Humerus. PLAN 1. Admit to the hospital as an Inpatient. 2. Bedrest with Assistance for Bedside Commode. 3. Close monitoring of the blood sugars. 4. Follow up laboratory assessment. 5. DVT, PE and PUD prophylaxis. Sarkis Piedra MD Sep 29, 2017 22:31
[2017-09-29 22:43] LABS: BILIRUBIN, URINE NEG (NEG); BLOOD, URINE NEG (NEG); GLUCOSE,URINE NEG (NEG); KETONE, URINE NEG (NEG); MUCUS URINE FEW /lpf (OCC); NITRITE,URINE NEG (NEG); SQUAMOUS EPITHELIAL CELL URINE <1 /hpf (0-5); URINE COLOR LIGHT-YELLOW (YELLW/STRAW); URINE LEUKOCYTE ESTERASE NEG (NEG)
[2017-09-29] MEDS: MULTIVITAMIN TAB PO SCH (23:15)
[2017-09-30] MEDS: ACETAMINOPHEN/HYDROcodone 325 MG/5 MG TAB PO PRN ×3 (00:22→20:20)
[2017-09-30] MEDS: HEPARIN SODIUM - SQ 10,000 UNITS/ML VIAL SQ SCH ×3 (00:40→23:17)
[2017-09-30 02:12] VITALS: BP 121/70; PULSE 62; RESP 18; TEMP 98.4; O2SAT 98
[2017-09-30 04:14] VITALS: BP 129/67; PULSE 65; RESP 20; TEMP 97.6; O2SAT 100
[2017-09-30] MEDS ORDERED: HYDROCORTISONE SOD SUCCINATE 100 MG VIAL IV ONE (05:15)
[2017-09-30] MEDS ORDERED: DEXT 5%-NACL 0.45% 1000 ML INJ 1,000 ML IV SCH ×2 (05:15→10:15)
[2017-09-30] MEDS ORDERED: DEXTROSE 50% IN WATER 50 ML VIAL(D50) IV ONE (05:15)
[2017-09-30] MEDS: LEVOTHYROXINE SODIUM 50 MCG TAB PO SCH (05:15)
[2017-09-30 07:34] LABS: AUTOMATED NEUTROPHIL # 3.1 TH/MM3 (1.8-7.7); BASOPHIL % 0.3 % (0.0-2.0); EOSINOPHIL # 0.2 TH/MM3 (0-0.4); HEMATOCRIT 28.7 % (39.0-51.0); HEMOGLOBIN 9.6 GM/DL (13.0-17.0); LYMPH % 26.7 % (9.0-44.0); LYMPHOCYTE # 1.3 TH/MM3 (1.0-4.8); MEAN CELL VOLUME 90.3 FL (80.0-100.0); MEAN CORPUSCULAR HEMOGLOBIN 30.2 PG (27.0-34.0); MEAN CORPUSCULAR HGB CONC 33.4 % (32.0-36.0); MEAN PLATELET VOLUME 8.5 FL (7.0-11.0); MONO % 6.6 % (0.0-8.0); MONOCYTE # 0.3 TH/MM3 (0-0.9); NEUT % 63.4 % (16.0-70.0); PLATELET COUNT 136 TH/MM3 (150-450); RED BLOOD COUNT 3.18 MIL/MM3 (4.50-5.90); RED CELL DISTRIBUTION WIDTH 15.1 % (11.6-17.2); WHITE BLOOD COUNT 4.9 TH/MM3 (4.0-11.0)
[2017-09-30 07:58] LABS: CALCIUM 8.5 MG/DL (8.5-10.1); CREATININE 0.99 MG/DL (0.60-1.30)
[2017-09-30 08:00] VITALS: BP 121/64; PULSE 62; RESP 18; TEMP 97.7; O2SAT 99
[2017-09-30] MEDS: INSULIN ASPART SUPPLEMENTAL SCALE SQ SCH ×4 (08:28→21:42)
[2017-09-30] MEDS: CLOPIDOGREL 75 MG TAB PO SCH (08:30)
[2017-09-30] MEDS: GABAPENTIN 100 MG CAP PO SCH ×5 (08:30→21:41)
[2017-09-30] MEDS: MULTIVITAMIN TAB PO SCH (08:31)
[2017-09-30] MEDS: METOPROLOL TARTRATE 50 MG TAB PO SCH (08:31)
[2017-09-30] MEDS: DOXAZOSIN MESYLATE 4 MG TAB PO SCH (08:31)
[2017-09-30] MEDS: PRAVASTATIN SOD 40 MG TAB PO SCH (08:32)
[2017-09-30] MEDS: FUROSEMIDE 40 MG TAB PO SCH (08:32)
[2017-09-30] MEDS: PANTOPRAZOLE SOD 20 MG DELAYED RELEASE TAB PO SCH (08:32)
[2017-09-30] MEDS: DOCUSATE SODIUM 50 MG/SENNA 8.6 MG TAB PO SCH ×2 (08:32→21:41)
[2017-09-30] MEDS: LOSARTAN 50 MG TAB PO SCH (08:32)
[2017-09-30] MEDS: SODIUM CHLORIDE 0.9% FLUSH 10 ML FLUSH IV FLUSH SCH ×2 (09:00→21:50)
[2017-09-30] MEDS: ZINC SULFATE 220 MG CAP PO SCH (09:00)
[2017-09-30 12:00] VITALS: BP 116/69; PULSE 63; RESP 18; TEMP 98.3; O2SAT 99
--- NOTE | 2017-09-30 14:40 | EKG ---
Date Performed: 09/29/2017 Time Performed: 18:59:14 PTAGE: 62 years EKG: SINUS BRADYCARDIA MODERATE INTRAVENTRICULAR CONDUCTION DELAY BORDERLINE ECG Since PREVIOUS TRACING , no significant change noted PREVIOUS TRACIN03/17/2017 04.43 DOCTOR: Kimani Thomason Interpretating Date/Time 09/30/2017 14:38:31
[2017-09-30 16:00] VITALS: BP 118/72; PULSE 60; RESP 18; TEMP 97.9; O2SAT 99
--- NOTE | 2017-09-30 19:02 | HHI.PR ---
Subjective Remarks He is lying in the bed and reports no new adverse complaints today. He is tolerating oral intake well and the medications as well. There is continued close monitoring of the blood sugars. Objective - Vital Signs Date Time Temp Pulse Resp B/P (MAP) Pulse Ox O2 Delivery O2 Flow Rate FiO2 09/30/17 16:00 97.9 60 18 118/72 (87) 99 09/30/17 12:00 98.3 63 18 116/69 (85) 99 09/30/17 08:00 97.7 62 18 121/64 (83) 99 09/30/17 07:30 99 Room Air 09/30/17 04:14 97.6 65 20 129/67 (87) 100 09/30/17 02:13 18 09/30/17 02:12 98.4 62 18 121/70 (87) 98 09/29/17 23:30 57 18 129/70 (89) 98 Room Air 09/29/17 21:28 58 20 106/69 (81) 98 Room Air 09/29/17 20:53 58 20 111/58 (75) 99 Room Air 09/29/17 20:29 54 20 98/55 (69) 97 Room Air 09/29/17 19:48 55 20 104/59 (74) 98 Room Air 09/29/17 19:24 53 20 95/54 (68) 98 09/29/17 19:20 53 18 79/54 (62) 99 I/O 09/29/17 09/29/17 09/29/17 09/30/17 09/30/17 09/30/17 07:00 15:00 23:00 07:00 15:00 23:00 Intake Total 1000 ml 720 ml Output Total 1300 ml Balance 1000 ml -580 ml Intake Oral 720 ml IV Total 1000 ml Output Urine Total 1300 ml # Bowel Movements 0 Result Diagram: 09/30/1771509/30/17715 Objective Remarks GENERAL: Alert and oriented today. SKIN: Warm and dry. HEAD: Normocephalic. Atraumatic. EYES: No scleral icterus. No injection or drainage. NECK: Supple, trachea midline. No JVD or lymphadenopathy. CARDIOVASCULAR: Regular rate and rhythm without murmurs, gallops, or rubs. RESPIRATORY: Breath sounds equal bilaterally. No accessory muscle use. GASTROINTESTINAL: Abdomen soft, obese, non-tender and nondistended. MUSCULOSKELETAL: No cyanosis, or edema. BACK: Nontender without obvious deformity. No CVA tenderness. A/P Assessment and Plan ASSESSMENT 1. Acute Recurrent Hypoglycemic Episodes-improved. 2. Acute Metabolic Encephalopathy-resolved. 3. Diabetes Mellitus, Type 2. 4. Hypertension. 5. Hyperlipidemia. 6. Coronary Artery Disease. 7. Peripheral Arterial Disease. 8. Peripheral Neuropathy. 9. Hypothyroidism. 10. Right Below Knee Amputation. 11. Remote Left Thalamic C. V. A. 12. Remote ORIF of Left Humerus. PLAN 1. Continue with the intravenous support. 2. Bedrest with Assistance for Bedside Commode. 3. Close monitoring of the blood sugars. 4. Follow up laboratory assessment. 5. DVT, PE and PUD prophylaxis. Sarkis Piedra MD Sep 30, 2017 19:02
[2017-09-30 20:05] VITALS: BP 135/72; PULSE 62; RESP 17; TEMP 97.4; O2SAT 97
[2017-09-30] MEDS ORDERED: AMITRIPTYLINE HCL 50 MG TAB PO SCH (21:00)
[2017-10-01] VITALS (7 sets, daily range): BP systolic 108–153; BP diastolic 65–87; PULSE 56–87; RESP 18; TEMP 96.7–97.6; O2SAT 97–99
[2017-10-01] MEDS: LEVOTHYROXINE SODIUM 50 MCG TAB PO SCH (05:42)
[2017-10-01] MEDS: INSULIN ASPART SUPPLEMENTAL SCALE SQ SCH ×4 (08:00→19:55)
[2017-10-01] MEDS: METOPROLOL TARTRATE 50 MG TAB PO SCH (08:50)
[2017-10-01] MEDS: GABAPENTIN 100 MG CAP PO SCH ×4 (08:50→19:50)
[2017-10-01] MEDS: PRAVASTATIN SOD 40 MG TAB PO SCH (08:50)
[2017-10-01] MEDS: FUROSEMIDE 40 MG TAB PO SCH (08:51)
[2017-10-01] MEDS: CLOPIDOGREL 75 MG TAB PO SCH (08:51)
[2017-10-01] MEDS: PANTOPRAZOLE SOD 20 MG DELAYED RELEASE TAB PO SCH (08:51)
[2017-10-01] MEDS: LOSARTAN 50 MG TAB PO SCH (08:51)
[2017-10-01] MEDS: DOXAZOSIN MESYLATE 4 MG TAB PO SCH (08:51)
[2017-10-01] MEDS: DOCUSATE SODIUM 50 MG/SENNA 8.6 MG TAB PO SCH ×2 (08:51→19:50)
[2017-10-01] MEDS: MULTIVITAMIN TAB PO SCH (08:51)
[2017-10-01] MEDS: ZINC SULFATE 220 MG CAP PO SCH (08:52)
[2017-10-01] MEDS: ACETAMINOPHEN/HYDROcodone 325 MG/5 MG TAB PO PRN ×3 (08:59→19:50)
[2017-10-01] MEDS: SODIUM CHLORIDE 0.9% FLUSH 10 ML FLUSH IV FLUSH SCH ×2 (09:00→22:58)
[2017-10-01] MEDS ORDERED: PNEUMOCOCCAL POLYVALENT INJ 25 MCG/0.5 ML SYR IM ONE (10:00)
[2017-10-01] MEDS: HEPARIN SODIUM - SQ 10,000 UNITS/ML VIAL SQ SCH ×2 (13:39→22:58)
[2017-10-02] MEDS: LEVOTHYROXINE SODIUM 50 MCG TAB PO SCH (06:17)
[2017-10-02] MEDS: ACETAMINOPHEN/HYDROcodone 325 MG/5 MG TAB PO PRN ×2 (06:18→12:44)
[2017-10-02 08:00] VITALS: BP 162/88; PULSE 65; RESP 16; TEMP 97.2; O2SAT 99
[2017-10-02] MEDS: INSULIN ASPART SUPPLEMENTAL SCALE SQ SCH ×2 (08:00→11:43)
[2017-10-02] MEDS: DOXAZOSIN MESYLATE 4 MG TAB PO SCH (08:45)
[2017-10-02] MEDS: ZINC SULFATE 220 MG CAP PO SCH (08:45)
[2017-10-02] MEDS: PANTOPRAZOLE SOD 20 MG DELAYED RELEASE TAB PO SCH (08:45)
[2017-10-02] MEDS: GABAPENTIN 100 MG CAP PO SCH ×2 (08:45→12:43)
[2017-10-02] MEDS: LOSARTAN 50 MG TAB PO SCH (08:45)
[2017-10-02] MEDS: METOPROLOL TARTRATE 50 MG TAB PO SCH (08:45)
[2017-10-02] MEDS: FUROSEMIDE 40 MG TAB PO SCH (08:45)
[2017-10-02] MEDS: SODIUM CHLORIDE 0.9% FLUSH 10 ML FLUSH IV FLUSH SCH (08:46)
[2017-10-02] MEDS: MULTIVITAMIN TAB PO SCH (08:46)
[2017-10-02] MEDS: PRAVASTATIN SOD 40 MG TAB PO SCH (08:46)
[2017-10-02] MEDS: CLOPIDOGREL 75 MG TAB PO SCH (08:46)
[2017-10-02] MEDS: DOCUSATE SODIUM 50 MG/SENNA 8.6 MG TAB PO SCH (08:49)
[2017-10-02] MEDS: HEPARIN SODIUM - SQ 10,000 UNITS/ML VIAL SQ SCH (10:13)
[2017-10-02 12:00] VITALS: BP 146/83; PULSE 55; RESP 15; TEMP 97.8; O2SAT 99
--- NOTE | 2017-10-02 13:07 | HHI.PR ---
Subjective Remarks He is doing great. I discussed his status with the nurse for him to be able to go home today. Objective - Vital Signs Date Time Temp Pulse Resp B/P (MAP) Pulse Ox O2 Delivery O2 Flow Rate FiO2 10/02/17 09:15 Room Air 10/02/17 08:00 97.2 65 16 162/88 (112) 99 10/01/17 23:59 96.9 56 18 138/73 (94) 99 10/01/17 20:01 96.8 57 18 153/87 (109) 97 10/01/17 16:00 96.7 87 18 146/85 (105) 98 I/O 10/01/17 10/01/17 10/01/17 10/02/17 10/02/17 10/02/17 07:00 15:00 23:00 07:00 15:00 23:00 Intake Total 360 ml 720 ml 480 ml 360 ml Output Total 850 ml 1450 ml 800 ml Balance -490 ml -730 ml 480 ml -440 ml Intake Oral 360 ml 720 ml 480 ml 360 ml Output Urine Total 850 ml 1450 ml 800 ml # Voids 1 # Bowel Movements 0 1 1 0 Result Diagram: 09/30/17 0716 09/30/17 0716 Objective Remarks GENERAL: Alert and in no distress. SKIN: Warm and dry. HEAD: Normocephalic. EYES: No scleral icterus. No injection or drainage. NECK: Supple, trachea midline. No JVD or lymphadenopathy. CARDIOVASCULAR: Regular rate and rhythm without murmurs, gallops, or rubs. RESPIRATORY: Breath sounds equal bilaterally. No accessory muscle use. GASTROINTESTINAL: Abdomen soft, non-tender, nondistended. MUSCULOSKELETAL: No cyanosis, or edema. BACK: Nontender without obvious deformity. No CVA tenderness. A/P Assessment and Plan ASSESSMENT 1. Acute Recurrent Hypoglycemic Episodes-improved. 2. Acute Metabolic Encephalopathy-resolved. 3. Diabetes Mellitus, Type 2. 4. Hypertension. 5. Hyperlipidemia. 6. Coronary Artery Disease. 7. Peripheral Arterial Disease. 8. Peripheral Neuropathy. 9. Hypothyroidism. 10. Right Below Knee Amputation. 11. Remote Left Thalamic C. V. A. 12. Remote ORIF of Left Humerus. MEDICALLY STABLE PLAN 1. Continue with limited use of any diabetic medication for now. 2. Bedrest with Assistance for Bedside Commode. 3. Continue close monitoring of the blood sugars. 4. Discharge Planning. 5. DVT, PE and PUD prophylaxis. OKAY TO GO HOME TODAY Sarkis Piedra MD Oct 02, 2017 13:07
--- NOTE | 2017-10-02 13:24 | HHI.FF ---
Face to Face Verification Diagnosis: (1) DM type 2 (diabetes mellitus, type 2) Home Health Nursing Order: Medical education Diabetic education Medication education-adverse effect Nursing assessment with vital signs I have seen patient Efrain Herrera on 10/02/17. My clinical findings support the need for the requested home health care services because: Patient is Homebound. Med compliance is questionable Limited ability to care for self High risk of falls I certify that my clinical findings support that this patient is homebound because:This patient cannot leave home without the assistance of someone else. Unsafe to leave home unassisted Unable to use public transportation Sarkis Piedra MD Oct 02, 2017 13:24
== END 2017-10-02 15:22 | disposition home health service (06) | DRG 637 ==
LOC: NEPC 18:48 → NEDA 21:42 → N06A 09-30 04:13
PROVIDERS: ADMIT Internal Medicine; ATTEND Internal Medicine
DX: E11.649 Type 2 diabetes mellitus with hypoglycemia without coma (principal); G93.41 Metabolic encephalopathy; I11.0 Hypertensive heart disease with heart failure; I50.32 Chronic diastolic (congestive) heart failure; E11.40 Type 2 diabetes mellitus with diabetic neuropathy, unspecified; E11.319 Type 2 diabetes mellitus with unspecified diabetic retinopathy without macular edema; E11.51 Type 2 diabetes mellitus with diabetic peripheral angiopathy without gangrene; Z79.84 Long term (current) use of oral hypoglycemic drugs; M19.90 Unspecified osteoarthritis, unspecified site; E78.5 Hyperlipidemia, unspecified; E03.9 Hypothyroidism, unspecified; M54.5 Low back pain; G89.29 Other chronic pain; K21.9 Gastro-esophageal reflux disease without esophagitis; Z89.412 Acquired absence of left great toe; Z89.511 Acquired absence of right leg below knee; I25.10 Atherosclerotic heart disease of native coronary artery without angina pectoris; Z79.02 Long term (current) use of antithrombotics/antiplatelets; Z86.73 Personal history of transient ischemic attack (TIA), and cerebral infarction without residual deficits; Z23 Encounter for immunization
CPT/HCPCS: 70450; 71045; 73110; 73564; 80048; 80053; 80307; 81001; 82550; 82552; 82948; 83605; 83735; 84100; 84484; 85025; 85610; 85730; 87040; 90732; 93005; 96361; 96374; 96376; J1644; J1720; J1815; J7040